=== PATIENT | female | born 1960 | race Caucasian/White ===

== ENCOUNTER 2024-04-03 15:00 | Outpatient (AMB) | payer BC, SELFPAY ==
--- NOTE | 2024-04-03 14:12 | MHC.PC.OV ---
Vital Signs 04/03/24 15:31 Height 5 ft 1 in Weight 244 lb BMI 46.1 BP 110/58 L Blood Pressure Location Rt brachial Position Sitting Pulse 86 Pulse Source Pulse Oximeter Pulse Oximetry (%) 95 Oxygen Delivery Method Room Air Intake Visit Reasons: [facility]/referrals/ medications Intake Note: New patient visit Automation And Controls Manager Required: No Allergies azithromycin Allergy (Unknown, Verified 04/03/24 14:18) Rash furosemide Allergy (Unknown, Verified 04/03/24 14:18) Unknown levofloxacin [From Levaquin] Allergy (Unknown, Verified 04/03/24 14:18) Rash levothyroxine Allergy (Unknown, Verified 04/03/24 14:18) Rash sulfadiazine Allergy (Unknown, Verified 04/03/24 14:18) Rash zinc sulfate Allergy (Unknown, Uncoded 04/03/24 14:18) rash Tobacco use date assessed: 04/03/24 Fall risk assessment: 1 Fall in past year Last assessed Fall Risk: 04/03/24 Dental Screening Dental Screen Date: 04/03/24 Did you have a dental visit in the last 12 months?: Yes Did you have a dental problem in the last 6 months where you did not have access to dental care?: No Was dental information given to patient?: Patient has dentist HPI HPI Comments History of Present Illness Details The patient is a 63 year old female with pmhx obesity, MEHDI, GERD, hyperglycemia, asthma, insomnia presenting for follow up CV: Dyspnea 2022. Had cardiology work up. Saw Dr Huitron. LE edema. ABIs ordered. Continue LE edema, discomfort Pulm: Asthma, MEHDI. On symbicort, ventolin. Dyspnea: Stable. Bad over summer, fall 2022. Had flu A, asthma exacerbation. Nuclear stress normal. Saw cardiology. Referred to pulm GI: CT imaging worrisome for cirrhosis, portal htn. . MSK: Right shoulder pain. s/p arthroscopy. Did PT stable BH: Insomnia is stable on zolpidem. s/p hysterectomy Did cologuard ROS see HPI PHYSICAL EXAM: GENERAL: Alert and oriented x 3. NAD EYES: EOMI. Anicteric. HENT: Moist mucous membranes. No scleral icterus. No cervical lymphadenopathy. LUNGS: Clear to auscultation bilaterally. CARDIOVASCULAR: Regular rate and rhythm. No murmur. No JVD. ABDOMEN: Soft, non-tender +bs EXTREMITIES: No edema. Non-tender. SKIN: No rashes or lesions. Warm. NEUROLOGIC: No focal neurological deficits. CN II-XII grossly intact PSYCHIATRIC: Cooperative. Appropriate mood and affect [facility] Medical History Cataract, right eye Surgical History History of partial colectomy History of hysterectomy H/O total knee replacement Family History Mother Lymphoma Sister Stroke Cancer Social History Housing: House Alcohol intake: current Patient Tobacco Use Status: Former Tobacco user Cigarette Packs Per Day: 11 Years Smoked: 33 e-Cigarette/Vaping Use: Never Used Second Hand Smoke Exposure: No service: No Current occupational status: employed and retired Current occupational exposures/hazards: No Cognitive needs: No Hearing needs: No Vision needs: Yes (glasses) Questionnaire Thrive Questionnaire Date Thrive assessed: 03/27/24 I am a: Patient What is your living situation today?: I have a steady place to live Within the past 12 months, did the food you bought not last and you didn't have the money to get more?: Never true Within the past 12 months, did you worry whether your food would run out before you got money to buy more?: Never true Do you have trouble paying for medicines?: No Do you have trouble getting transportation to medical appointments?: No Do you have trouble paying your heating and electricity bill?: No Do you have trouble taking care of your child, family member or friend?: No Do you have trouble with day-to-day activities such as bathing, preparing meals, shopping, managing finances, etc.?: No Are you currently unemployed and looking for a job?: No Are you interested in more education?: No Please select the resources that you would like help with: None Currently or been in a relationship where the following occur: No concerns reported THRIVE Score: 0 AUDIT C Alcohol Use Questionnaire (AUDIT-C) 1. How often do you have a drink containing alcohol?: 2-4 times a month 2. How many drinks containing alcohol do you have on a typical day when you are drinking?: 1 or 2 3. How often do you have six or more drinks on one occasion?: Never Total Score: 2 RAMBO-7 AMB Questionnaire RAMBO-7 Feeling nervous, anxious, or on edge: 0 = Not at all Not being able to stop or control worryin = Not at all Worrying too much about different things: 0 = Not at all Trouble relaxin = Not at all Being so restless that it is hard to sit still: 0 = Not at all Becoming easily annoyed or irritable: 0 = Not at all Feeling afraid as if something awful might happen: 0 = Not at all Total RAMBO-7 score (0-4 normal; 5-9 mild; 10-14 moderate; 15-21 severe): 0 Source: Developed by Drs. Hira Long, Mary Wolff, Fabian Robert and colleagues, with an educational brittney from [employer]. ACT Questionnaire In the past 4 weeks, how much of the time did your asthma keep you from getting as much done at work, school or at home?: A little of the time During the past 4 weeks, how often have you had shortness of breath?: 1-2 times a week During the past 4 weeks, how often did your asthma symptoms wake you up at night or earlier than usual in the morning?: Not at all During the past 4 weeks, how often have you had to use your rescue inhaler or nebulizer medication?: 1-2 times a week How would you rate your asthma control during the past 4 weeks?: Well controlled Score: 19 Physical exam (Primary Care) Vital Signs: Last Vital Signs Pulse 86 04/03/24 15:31 BP 110/58 L 04/03/24 15:31 Pulse Ox 95 04/03/24 15:31 Oxygen Delivery Method Room Air 04/03/24 15:31 BMI result Body Mass Index 46.1 Tobacco/Smoking Status: Tobacco use Status Tobacco use date assessed 04/03/24 04/03/24 14:19 Patient Tobacco Use Status Former Tobacco user 04/03/24 15:29 e-Cigarette/Vaping Use Never Used 04/03/24 15:29 Thrive Assessment: Date of Thrive Assessment Date Thrive assessed 03/27/24 04/03/24 14:15 Currently or been in a relationship where the following occur: No concerns reported Coding Level of Care Code New Pt Level 4 (06642) Complex EM visit Add On G2211 Diagnoses Coronary artery disease, unspecified vessel or lesion type, unspecified whether angina present, unspecified whether [place] or transplanted heart I25.10 Associated angina: unspecified whether angina present Coronary Disease-Associated Artery/Lesion type: unspecified vessel or lesion type [place] vs. transplanted heart: unspecified whether [place] or transplanted heart MEHDI (obstructive sleep apnea) G47.33 Peripheral vascular disease I73.9 Assessment & Plan Assessment & Plan (1) CAD (coronary artery disease): Code(s): I25.10 - Atherosclerotic heart disease of [place] coronary artery without angina pectoris Category: Medical Qualifiers: Associated angina: unspecified whether angina present Coronary Disease-Associated Artery/Lesion type: unspecified vessel or lesion type [place] vs. transplanted heart: unspecified whether [place] or transplanted heart Qualified Code(s): I25.10 - Atherosclerotic heart disease of [place] coronary artery without angina pectoris Plan: Continue cardiology follow up (2) MEHDI (obstructive sleep apnea): Code(s): G47.33 - Obstructive sleep apnea (adult) (pediatric) Category: Medical Plan: Referral to pulmonary. (3) Peripheral vascular disease: Code(s): I73.9 - Peripheral vascular disease, unspecified Category: Medical Plan: referral to vascular placed Orders: Referrals Podiatry Referral M79.673 - Pain in unspecified foot Dermatology Referral L98.9 - Disorder of the skin and subcutaneous tissue, unspecified Cardiology Referral I25.10 - Atherosclerotic heart disease of [place] coronary artery without angina pectoris Pulmonology Referral G47.33 - Obstructive sleep apnea (adult) (pediatric) Vascular Surgery Referral I73.9 - Peripheral vascular disease, unspecified Medications: New zolpidem 5 mg PO BEDTIME PRN 30 tabs 0RF sleep
--- OUTSIDE RECORDS SUMMARY | 2024-04-03 15:02 | XMS_ITS | Continuity of Care Document ---
Author Organization [facility] Address [address] [place] [address]- Care Team Providers Care Ebay Reseller Name Role Phone Tommie PALACIOS, Citlalli Lobo Primary Care Physician Encounter [facility] Date(s): 02/23/24 - 03/24/24 [facility] [address] [place] [id number]- Encounter Type: Triage Allergies, Adverse Reactions, Alerts Substance Criticality Severity Reaction Reaction Severity Status furosemide High criticality Moderate Ac tive azithromycin Rash Active levoFLOXacin Rash Active sulfADIAZINE Rash Active zinc sulfate ophthalmic Rash Active Levaquin rash Active Immunizations Given and Recorded Vaccine Date Status Refusal Reason SARS-CoV-2 (COVID-19) mRNA BNT-162b2 vac 04/28/21 Recorded tetanus/diphtheria/pertussis, acel(Tdap) 1 10/14/20 Given SARS-CoV-2 (COVID-19) Ad26 vaccine 06/25/20 Record ed influenza virus vaccine, inactivated 2 04/08/11 Gi loly influenza virus vaccine, inactivated 03/05/10 Give n pneumococcal 23-valent vaccine 03/06/10 Given 1Result Comment: [facility] [id number] 2Admin Note: [facility] info given to patient Problem List Condition Confirmation Course Effective Dates Status H ealth Status Informant Cirrhosis of liver Confirmed Active Controlled substance agreement signed 01/29/2021 Confirmed 01/29/21 Active Gastroesophageal reflux disease Confirmed Active Ventral incisional hernia Confirmed Active Hyperglycemia Confirmed Active Insomnia Confirmed Active Asthma, moderate persistent Confirmed Active Obesity Confirmed Active Obstructive sleep apnea syndrome, severe Confirmed Active High pulmonary arterial pressure Confirmed Active Restrictive lung disease secondary to obesity Confirmed Active Allergic rhinitis, seasonal Confirmed Active Severe obesity Confirmed Active Vertigo Confirmed Active Vitamin D deficiency Confirmed Active Social History Social History Type Response Smoking Status Former smoker, quit more than 30 days ago; Type: Cigarettes; Tobacco use times per day: 1pack/day; Started at age: 16; Stopped at age: 49; entered on: 12/09/21 Sex Sex Representation Female (finding) Patient Care team information Care Team Personnel Name: Gina Savage RN Position: [facility] AMB Nurse Member Role: Primary Care Nurse Name: Sage Crisostomo RN Position: [facility] RN Member Role: Primary Care Nurse Name: Nash Wick RN Position: [facility] RN Member Role: Primary Care Nurse Name: Citlalli Reilly MD Position: Reference Physician Member Role: PCP Address: [address] [place] [address] Telecom: Name: Cande Scott RN Position: [facility] ED RN W/OE and Tasks Member Role: Primary Care Nurse Name: Emily Virk RN Position: S RN Member Role: Primary Care Nurse Name: Christie Franco RN Position: [facility] SN RN Member Role: Primary Care Nurse Care Team Related Persons Name: NOEDASH Insurance Providers Guarantor name: PRASANNA NOE [employer] [facility] Information #: 1 Payer: HMO BLUE IN NETWORK Member Number: NA Policy Number: NA Group Number: NA
--- OUTSIDE RECORDS SUMMARY | 2024-04-03 15:02 | XMS_ITS | Continuity of Care Document ---
Author Organization [facility] Address [address] [place] [address]- Care Team Providers Care Bundle Helper Name Role Phone Tommie PALACIOS, Citlalli Lobo Primary Care Physician [phone] Encounter [facility] Date(s): 02/25/24 - 03/26/24 [facility] [address] [place] [id number] Attending Physician: AdmEsthela gonzalez Admitting Physician: AdmtrEsthela Referring Physician: Admtr [id number] Encounter Type: Triage Allergies, Adverse Reactions, Alerts [...] pneumococcal 23-valent vaccine 03/06/10 Given 1Result Comment: [facility] [id number] 2Admin Note: [facility] info given to patient Problem List Condition [...] Team Personnel Name: Gina Savage RN Position: [facility] AMB Nurse Member Role: Primary Care Nurse Name: Sage Crisostomo RN Position: [facility] RN Member Role: Primary Care Nurse Name: Nash Wick RN Position: [facility] RN Member Role: Primary Care Nurse Name: Citlalli Reilly MD Position: Reference Physician Member Role: PCP Address: [address] [place] [address] Telecom: Name: Cande Scott RN Position: [facility] ED RN W/OE and Tasks Member Role: Primary Care Nurse Name: Emily Virk RN Position: [facility] RN Member Role: Primary Care Nurse Name: Christie Franco RN Position: [facility] SN RN Member Role: Primary Care Nurse Care Team Related Persons Name: NOEDASH Insurance Providers Guarantor name: PRASANNA NOE [employer] [facility] Information #: 1 Payer: O BLUE IN NETWORK Member Number: NA Policy Number: NA Group Number: NA
--- OUTSIDE RECORDS SUMMARY | 2024-04-03 15:02 | XMS_ITS | Continuity of Care Document ---
Author Organization [facility] Address [address] [place] [address]- Care Team Providers Care Pharmacy Picking Technician Name Role Phone Tommie PALACIOS, Citlalli Lobo Primary Care Physician Encounter [facility] Date(s): 02/22/24 - 03/23/24 [facility] [address] [place] [phone]- Encounter Type: Triage Allergies, Adverse Reactions, Alerts Substance Criticality Severity Reaction Reaction Severity Status furosemide High criticality Moderate Ac tive azithromycin Rash Active zinc sulfate ophthalmic Rash Active levoFLOXacin Rash Active sulfADIAZINE Rash Active Levaquin rash Active Immunizations Given and Recorded Vaccine Date Status Refusal Reason SARS-CoV-2 (COVID-19) mRNA BNT-162b2 vac 04/28/21 Recorded tetanus/diphtheria/pertussis, acel(Tdap) 1 10/14/20 Given SARS-CoV-2 (COVID-19) Ad26 vaccine 06/25/20 Record ed influenza virus vaccine, inactivated 2 04/08/11 Gi loly influenza virus vaccine, inactivated 03/05/10 Give n pneumococcal 23-valent vaccine 03/06/10 Given 1Result Comment: [facility] [id number] 2Admin Note: [facility] info given to patient Problem List Condition [...] Team Personnel Name: Gina Savage RN Position: [facility] AMB Nurse Member Role: Primary Care Nurse Name: Sage Crisostomo RN Position: [facility] RN Member Role: Primary Care Nurse Name: Nash Wick RN Position: [facility] RN Member Role: Primary Care Nurse Name: Citlalli Reilly MD Position: Reference Physician Member Role: PCP Address: [address] [place] [id number] Telecom: Name: Cande Scott RN Position: [facility] ED RN W/OE and Tasks Member Role: Primary Care Nurse Name: Emily Virk RN Position: [facility] RN Member Role: Primary Care Nurse Name: Christie Franco RN Position: [facility] RN Member Role: Primary Care Nurse Care Team Related Persons Name: NOEDASH RAMIREZ Insurance Providers Guarantor name: PRASANNA NOE [facility] Information #: 1 Payer: HMO BLUE IN NETWORK Member Number: NA Policy Number: NA Group Number: NA
--- OUTSIDE RECORDS SUMMARY | 2024-04-03 15:02 | XMS_ITS | Data Portability ---
Author Organization [place] - [facility],, RADHA GONZALEZ MD Address [address] [address] Care Team Providers Care Coffee Urn Attendant Name Role Phone AlysonCORAL PAULA Primary Care Provider Assessment No assessment recorded. Plan of Treatment Reminders Order Date Submit Date Provider Last Modified By Organization Details Last Modified Time Details Appointments ANNUAL EXAM 2024 09:00A M Radha Gonzalez MD Not available Not available Not available Lab pap test, thinprep, cervical 2023 024 [email or web address] [facility], [address] [place] [address], [id number], 05/27/2023 07:34:21 fecal occult blood, stool 2023 024 [email or web address] 1 In-Office Order, Internal Use Only DO Not Attach Compendium DO Not Attach Compendium, Do Not Delete/merge, [id number] 05/20/2023 09:35:44 Referral None recorded. Procedures None recorded. Surgeries None recorded. Imaging bone density 2023 024 [facility]), [address] [place], [address], 05/20/2023 12:06:59 MAMMO, screening , digital, bilateral - Breast Aspiratio n and/or Biopsy if needed [address] [facility] ([facility]), [address] [place], [address], 05/20/2023 12:06:59 Medication Orders None recorded. Patient TargetsNo targets recorded. Patient Instructions Encounter Date Encounter Id Patient Instructions Last Modified By Organization Details Last Modified Time 05/20/2023 [id number] learning about healthy weight luciana Not available 05/20/2023 09:35:44 She is here as a new patient for annual exam. She had a hysterectomy at age 28, including removing the ovaries, she is not certain why she had it done. She did not have an abnormal pap, or endometriosis. It was pain and problems. After that she took ERT for a few years, but not since age 39 or earlier. She is retired, doing well, would like ot lose weight but her insurance denied the weight loss injections that her doctor prescribed. BMI 46.4. She has a hernia in her incision, it causes pain at times, she went to see a general surgeon he told me I need it done but I'm too fat for him to operate on. She appears to be doing well. She has never had a bone density, one is ordered. she is given the name nad contact information for Dr. Bassam Howe at the [facility]. Monthly self breast exam was taught, and stressed, and is advised to call if she discovers any new mass in the breast. Libido issues discussed. She does have atrophy, but has never tried a lubricant. Advised to try Astroglide, if not enough improvement then advised to call for telehealth to discuss possible vaginal estradiol. luciana Not available 05/20/2023 10:03:21 Reason for Referral None Reported. Results Created Date Observation Date Name Description Value Unit Range Abnormal Flag Note LastModifiedBy Organization Detail LastModifiedTime 05/20/19 24 05/20/2023 [facility] OGY results Patiarmando nt Name: ZORA OBRIEN nt : 1959 (Age: 63) Lab Acces faraz #: [id number] Colle ction Date: Acces faraz Date: Sign Out Date: Tissu e Sourc e: 1: THINP REP DIAMOND PICKER PAP TEST, VAGIN AL: Final Diagn osis: NEGAT ISABELLA FOR INTRA EPITH ELIAL LESTONE N OR PJ CHATTERJEE . Satis facto ry for evalu ation . Clini jose Histo ry: Date of Last Menst rual Perio d: not avail able Menst rual Histo ry: Hyste recto my Post- menop ausal Contr acept isabella Histo ry: not avail able Ancil dane Deepthi melvin: HPV (ASCU S) Case image d by the ThinP rep Imagi ng Syste m with mira weaverr marko polanco or josé miguel mak. Perfo rmed at [facility] ate Refer ence [facility], [address] [place] Clini jose Histo ry (othe r): Z01.4 19, ROUTI NE SCREE N Phone #: [phone], On-Ca ll Patho logis t: [id number] Not Available [facility] [address], [place], [address], 05/26/2023 10:45:42 05/20/19 24 05/20/2023 fecal occul t blood , stool Occult Blood negati ve Not Available In-Office Order Internal Use Only DO Not Attach Compendium DO Not Attach Compendium, Do Not Delete/merge, [id number] 05/20/2023 09:16:31 Result Notes None recorded. Problems Name Problem SNOMED Code Status Onset Date Resolution Date Notes Provider Name and Address Organization Details Recorded Time Incisional hernia 349999694 Active 2023 Radha Gonzalez MD [address], [place], [address], [place] - [facility], 4 10:00:25 Postsurgic al menopause 929856485 Active 2023 premature age 28 Radha Gonzalez MD [address], [place], [address], [place] [facility], 4 10:00:48 Reduced libido 2964765 Active 2023 Radha Gonzalez MD [address], [place], [address], [place] [facility], 4 10:01:02 Morbid obesity 792789422 Active 2023 Radha Gonzalez MD [address] [facility], [address], [place], [address] , [place] - [facility], 10:01:10 Problem Notes None recorded. Procedures Surgical History Date Name Laterality Status Provider Name and Address Organization Details Recorded Time 09/18/19 23 Most Recent Mammogram completed Angely Mecstefaniewor [place] - [facility], 05/20/2023 09:14:55 06/04/19 23 procedure on shoulder completed Angely Meczywor [place] [facility], 05/20/2023 09:12:14 05/21/19 22 procedure on knee completed Angely Meczywor [place] [facility], 05/20/2023 09:12:31 06/04/19 17 Appendectomy completed Angely Meczywor [place] [facility], 05/20/2023 09:12:50 05/22/19 11 cholecystectomy completed Angely Meczywor [place] - [facility], 05/20/2023 09:13:07 05/20/18 80 hysterectomy completed Angely Meczywor [place] [facility], 05/20/2023 09:14:07 Imaging Results None recorded. Procedure Notes None recorded. Medical Equipment None Reported. Allergies Allergen ID Allergen Name Allergen Category Reaction Reaction Severity Criticality Documentation Date Start Date Code Code System Note Provider Name and Address Organization Details Recorded Time 79480 Substance with sulfonami de structure and antibacte rial mechanism of action (substanc e) medicatio n rash Not available Not available 05/20/2023 55265 8003 SNOMED Angely Mecznathaly tay [place] - [facility], 09:07:30 Medications Name Sig Start Date Stop Date Status Note LastModified by Organization Details LastModified Time prednisone 10 mg tablet 3 TABS BY MOUTH DAILY X 3 DAYS, 2 TABS BY MOUTH DAILY X 3 DAYS, 1 TABLET BY MOUTH DAILY X 3 DAYS 05/20 completed Not Available Not Available Not Available ondansetron HCl 4 mg tablet TAKE 1 TABLET BY MOUTH EVERY 8 HOURS FOR 30 DAYS NEEDED NAUSEA & VOMITING 05/20 completed Not Available Not Available Not Available pimecrolimu s 1 % topical cream Apply small amount to affected areas for 2-4 weeks active Not Available Not Available No t Available spironolact one 25 mg tablet TAKE 1/2 OF A TABLET BY MOUTH DAILY FOR 30 DAYS active Not Available Not Available No t Available pantoprazol e 40 mg tablet,iker yed release TAKE 1 TABLET BY MOUTH EVERY DAY 05/20 completed Not Available Not Available Not Available zolpidem 5 mg tablet TAKE 1 TABLET BY MOUTH DAILY AT BEDTIME 05/20 completed Not Available Not Available Not Available methylpredn isolone 4 mg tablets in a dose pack TAKE DIRECTED ON PACKET 05/20 completed Not Available Not Available Not Available albuterol sulfate HFA 90 mcg/actuati on aerosol inhaler INHALE 2 PUFFS 4 TIMES A DAY NEEDED FOR WHEEZING OR SHORTNESS OF BREATH active Not Available Not Available No t Available naproxen 500 mg tablet TAKE 1 TABLET BY MOUTH TWICE A DAY FOR 5 DAYS BEGINNING THE AFTERNOON /EVENING YOU GET HOME FROM SURGERY. TAKE WITH FOOD, STOP IF STOMACH DISCOMFOR T. 05/20 completed Not Available Not Available Not Available oxycodone 5 mg tablet TAKE 1 TABLET BY MOUTH EVERY 4 HOURS NEEDED FOR PAIN DIRECTED (DO NOT DRIVE WHILE ON THIS MEDICATIO N) 05/20 completed Not Available Not Available Not Available Symbicort 160 mcg-4.5 mcg/actuati on HFA aerosol inhaler INHALE 2 PUFFS TWICE A DAY active Not Available Not Available No t Available Vitals Date Recorded Heart rate Body temperature Body weight Body mass index (BMI) Body height Systolic blood pressure Diastolic blood pressure Provider Name and Address Organization Details Last Updated DateTime 4 93 /min 98 [degF] 209071. 55 g 46.4 kg/m2 152.4 cm 131 mm[Hg] 50 mm[Hg] Angely Zamora in [facility], 4 09:05:32 Social History Question Answer Notes LastModified by Organizat ion Details LastModified Time Tobacco Smoking Status Former Smoker [place] Forrest in [facility], 05/20/2023 09:10:14 What Is Your Level Of Alcohol Consumption? Occasional Information not available 05/20/2023 How Many Years Have You Consumed Alcohol? 40 Information not available 05/20/2023 What Is Your Level Of Caffeine Consumption? Moderate Information not available 05/20/2023 In The 14 Days Before Symptom Onset, Have You Had Close Contact With A Laboratory-confir med COVID-19 While That Case Was Ill? No Information not available 05/20/2023 In The 14 Days Before Symptom Onset, Have You Had Close Contact With A Person Who Is Under Investigation For COVID-19 While That Person Was Ill? No Information not available 05/20/2023 Have You Been To An Area Known To Be High Risk For COVID-19? No Information not available 05/20/2023 Are You Currently Employed? No Retired Information not available 05/20/2023 What Is The Highest Grade Or Level Of School You Have Completed Or The Highest Degree You Have Received? [id number] Information not available 05/20/2023 Are There Any Guns Present In Your Home? No Information not available 05/20/2023 To Which Gender Do You Self-identify? Female Information not available 05/20/2023 What Was The Date Of Your Most Recent Tobacco Screening? 05/20/2023 Information not available 05/20/2023 What Is Your Relationship Status? Information not available 05/20/2023 Are You Sexually Active? Yes Information not available 05/20/2023 At What Age Did You Start Smoking Tobacco? 16 Information not available 05/20/2023 Do You Feel Stressed (tense, Restless, Nervous, Or Anxious, Or Unable To Sleep At Night)? [id number] Information not available 05/20/2023 Do You Use Any Illicit Or Recreational Drugs? No Information not available 05/20/2023 How Many Years Have You Smoked Tobacco? 20 Information not available 05/20/2023 Do You Or Have You Ever Used Any Other Forms Of Tobacco Or Nicotine? No Information not available 05/20/2023 How Many Days In The Past Year Have You Consumed 4 Or More Drinks? -1 Information no t available 05/20/2023 Sex: Female Functional Status Question Answer Note LastModified by Organizat ion Details LastModified Time What is your exercise level? Occasional Information not available 05/20/2023 Mental Status None recorded. Family History Relationship Description Onset Age of this Age Resolved Age Notes LastModified by Organization Details LastModified Time Father Heart disease [email or web address] Not available 2023 09:08:55 Medical History Condition Response Anesthesia complications N High Blood Pressure N Candidate for MyRisk panel N Autoimmune Condition N Thyroid Problems N Kidney or Bladder Problems N Depression N GI Problems N Lung Disease N Defects or Inherited Disease N Anemia N History of Ovarian Cancer N History of Breast Cancer N RYAN exposure N BRCA testing in past N Osteopenia N Psychiatric Illness N Diabetes N Anxiety Disorder N Arthritis N Headaches or Migraines N Infertility N Asthma Y History of Cancer N Endometriosis N Hepatitis N Heart Disease N Hypertension N Osteoporosis N Gynecological History Statement/Question Response If Post Menopausal, Age at Menopause 28 Age at Menarche 12 Most Recent Mammogram 09/17/2022 Age at First Child 17 Obstetrics History GPAL:G 4 P 4 0 0 4 Type Value Full Term 4 Living 4 Total 4 Immunizations Vaccine Type Date Status Note Provider Nam e and Address Organization Details Recorded Time COVID-19, mRNA, LNP-S, PF, 30 mcg/0.3 mL dose 04/28/2021 completed [place] in [facility], 05/20/2023 09:06:38 COVID-19 vaccine, vector-nr, rS-Ad26, PF, 0.5 mL 06/25/2020 completed [place] in [facility], 05/20/2023 09:06:39 Tdap 10/14/2020 completed [place] in [facility], 05/20/2023 09:06:39 Past Encounters Encounter ID Performer Location Encounter Start Date Encounter Closed Date Diagnosis/Indication Diagnosis SNOMED-CT Code Diagnosis ICD10 Code [id number] MD RADHA Carmona MD [address] [place] [address] 05/20/2023 08:58:41 05/20/2023 12:06:59 Specialized medical examination 47546152 Z01.419 Screening for malignant neoplasm of rectum 398091766 Z12.12 Screening mammography 24 084060 Z12.31 Menopausal syndrome 1237 76812 N95.8 Incisional hernia 843631 000 K43.2 Postsurgic al menopause 327470731 E89.41 Health Concerns Section Related Observation LastModified by Organization Detai ls LastModified Time None Recorded Concern Status LastModified by Organization Details LastModified Time None Recorded Advance Directives Directive None Recorded Payers Encounter Date Sequence Insurance Name Policy Number Policy Bowles Covered Member ID Bowles Member ID Guarantor Name 05/20/2023 1 [facility] [id number] Adrienne Amaya [id number] Aprbina Amaya Notes Date Note Type Note Provider Name and Address Organization Details Recorded Time 05/20/2023 text/html She is here as a new patient for annual exam. She had a hysterectomy at age 28, including removing the ovaries, she is not certain why she had it done. She did not have an abnormal pap, or endometriosis. It was pain and problems. After that she took ERT for a few years, but not since age 39 or earlier. She is retired, doing well, would like ot lose weight but her insurance denied the weight loss injections that her doctor prescribed. She has a hernia in her incision, it causes pain at times, she went to see a general surgeon he told me I need it done but I'm too fat for him to operate on. Radha Gonzalez MD [address], [place], [address], [place] - [facility], 05/20/2023 10:03:47 OBGyn Episode No OBEpisode recorded.
--- OUTSIDE RECORDS SUMMARY | 2024-04-03 15:02 | XMS_ITS | Continuity of Care Document ---
Author Organization [facility] Address [address] [place] [address]- Care Team Providers Care Environmental Field Professional Name Role Phone Tommie PALACIOS, Citlalli Lobo Primary Care Physician [phone] Encounter [facility] Date(s): 02/27/24 - 03/28/24 [facility] [address] [place] [address]- Encounter Type: Triage Allergies, Adverse Reactions, Alerts Substance Criticality Severity Reaction Reaction Severity Status furosemide High criticality Moderate Ac tive azithromycin Rash Active sulfADIAZINE Rash Active zinc sulfate ophthalmic Rash Active Levaquin rash Active levoFLOXacin Rash Active Immunizations Given and Recorded Vaccine Date Status Refusal Reason SARS-CoV-2 (COVID-19) mRNA BNT-162b2 vac 04/28/21 Recorded tetanus/diphtheria/pertussis, acel(Tdap) 1 10/14/20 Given SARS-CoV-2 (COVID-19) Ad26 vaccine 06/25/20 Record ed influenza virus vaccine, inactivated 2 04/08/11 Gi loly influenza virus vaccine, inactivated 03/05/10 Give n pneumococcal 23-valent vaccine 03/06/10 Given 1Result Comment: [facility] [id number] 2Admin Note: [facility] info given to patient Problem List Condition [...] Team Personnel Name: Gina Savage RN Position: [facility] AMB Nurse Member Role: Primary Care Nurse Name: Sage Crisostomo RN Position: [facility] RN Member Role: Primary Care Nurse Name: Nash Wick RN Position: [facility] RN Member Role: Primary Care Nurse Name: Citlalli Reilly MD Position: Reference Physician Member Role: PCP Address: [address] [place] [address] Telecom: Name: Cande Scott RN Position: [facility] ED RN W/OE and Tasks Member Role: Primary Care Nurse Name: Emily Virk RN Position: S RN Member Role: Primary Care Nurse Name: Christie Franco RN Position: [facility] SN RN Member Role: Primary Care Nurse Care Team Related Persons Name: NOEDASH Insurance Providers Guarantor name: PRASANNA NOE [employer] [facility] Information #: 1 Payer: HMO BLUE IN NETWORK Member Number: NA Policy Number: NA Group Number: NA
--- OUTSIDE RECORDS SUMMARY | 2024-04-03 15:02 | XMS_ITS | Continuity of Care Document ---
Author Organization [facility] Address [facility] [place] [address]- Care Team Providers Care Electronic Security Technician Name Role Phone Tommie PALACIOS, Citlalli Lobo Primary Care Physician Encounter [facility] Date(s): 02/07/24 - 03/08/24 [facility] [address] [place] [address]- Encounter Type: Triage Allergies, Adverse Reactions, Alerts [...] pneumococcal 23-valent vaccine 03/06/10 Given 1Result Comment: [facility][NOTE 3] [id number] 2Admin Note: [facility] info given to patient Problem List [...] Team Personnel Name: Gina Savage RN Position: [facility] AMB Nurse Member Role: Primary Care Nurse Name: Sage Crisostomo RN Position: [facility] RN Member Role: Primary Care Nurse Name: Nash Wick RN Position: [facility] RN Member Role: Primary Care Nurse Name: Citlalli Reilly MD Position: Reference Physician Member Role: PCP Address: [address] [place] [address] Telecom: Name: Cande Scott RN Position: [facility] ED RN W/OE and Tasks Member Role: Primary Care Nurse Name: Emily Virk RN Position: [facility] RN Member Role: Primary Care Nurse Name: Christie Franco RN Position: [facility] SN RN Member Role: Primary Care Nurse Care Team Related Persons Name: NOEDASH Insurance Providers Guarantor name: PRASANNA NOE [employer] [facility] Information #: 1 Payer: HMO BLUE IN NETWORK Member Number: NA Policy Number: NA Group Number: NA
--- OUTSIDE RECORDS SUMMARY | 2024-04-03 15:02 | XMS_ITS | Continuity of Care Document ---
Author Organization [facility] Address [address] [place] [address]- Care Team Providers Care Email Marketing Intern Name Role Phone Tommie PALACIOS, Citlalli Lobo Primary Care Physician [phone] Encounter [facility] Date(s): 02/08/24 - 03/09/24 [facility] [address] [place] [address]- Encounter Type: Triage Allergies, Adverse Reactions, Alerts Substance Criticality Severity Reaction Reaction Severity Status furosemide High criticality Moderate Ac tive azithromycin Rash Active sulfADIAZINE Rash Active levoFLOXacin Rash Active zinc sulfate ophthalmic Rash Active Levaquin rash Active Immunizations Given and Recorded Vaccine Date Status Refusal Reason SARS-CoV-2 (COVID-19) mRNA BNT-162b2 vac 04/28/21 Recorded tetanus/diphtheria/pertussis, acel(Tdap) 1 10/14/20 Given SARS-CoV-2 (COVID-19) Ad26 vaccine 06/25/20 Record ed influenza virus vaccine, inactivated 2 04/08/11 Gi loly influenza virus vaccine, inactivated 03/05/10 Give n pneumococcal 23-valent vaccine 03/06/10 Given 1Result Comment: [facility] [id number] 2Admin Note: [facility] info given to patient Problem List Condition [...] Team Personnel Name: Gina Savage RN Position: [facility] AMB Nurse Member Role: Primary Care Nurse Name: Sage Crisostomo RN Position: [facility] RN Member Role: Primary Care Nurse Name: Nash Wick RN Position: [facility] RN Member Role: Primary Care Nurse Name: Citlalli Reilly MD Position: Reference Physician Member Role: PCP Address: [address] [place] [address] Telecom: Name: Cande Scott RN Position: [facility] ED RN W/OE and Tasks Member Role: Primary Care Nurse Name: Emily Virk RN Position: S RN Member Role: Primary Care Nurse Name: Christie Franco RN Position: [facility] SN RN Member Role: Primary Care Nurse Care Team Related Persons Name: NOEDASH Insurance Providers Guarantor name: PRASANNA NOE [employer] [facility] Information #: 1 Payer: HMO BLUE IN NETWORK Member Number: NA Policy Number: NA Group Number: NA
--- OUTSIDE RECORDS SUMMARY | 2024-04-03 15:03 | XMS_ITS | Continuity of Care Document ---
Author Organization [facility] Address [address] [place] [address]- Care Team Providers Care Wholesale Agronomist Name Role Phone Tommie PALACISO, Citlalli Lobo Primary Care Physician Encounter [facility] Date(s): 02/08/24 - 03/09/24 [facility] [address] [place] [address]- Encounter Type: Triage Allergies, Adverse Reactions, Alerts [...] 23-valent vaccine 03/06/10 Given 1Result Comment: [facility] [id number] 2Admin Note: [facility] info given to patient Problem List Condition [...] Team Personnel Name: Gina Savage RN Position: [facility] AMB Nurse Member Role: Primary Care Nurse Name: Sage Crisostomo RN Position: [facility] RN Member Role: Primary Care Nurse Name: Nash Wick RN Position: [facility] RN Member Role: Primary Care Nurse Name: Citlalli Reilly MD Position: Reference Physician Member Role: PCP Address: [address] [place] [address] Telecom: Name: Cande Scott RN Position: [facility] ED RN W/OE and Tasks Member Role: Primary Care Nurse Name: Emily Virk RN Position: S RN Member Role: Primary Care Nurse Name: Christie Franco RN Position: [facility] SN RN Member Role: Primary Care Nurse Care Team Related Persons Name: NOEDASH Insurance Providers Guarantor name: PRASANNA NOE [employer] [facility] Information #: 1 Payer: HMO BLUE IN NETWORK Member Number: NA Policy Number: NA Group Number: NA
--- OUTSIDE RECORDS SUMMARY | 2024-04-03 15:03 | XMS_ITS | Continuity of Care Document ---
Author Organization [facility] Card[facility] Ruy anai Address [address] [place] [address]- Care Team Providers Care Car Clerk Pullman Name Role Phone Tommie PALACIOS, Citlalli Lobo Primary Care Physician [phone] [place] [facility] [place]): 02/03/24 - 03/04/24 [facility] Cardiac Surgery [address] [place] [address] Drive [address] [place] [address]- Encounter Type: Triage Allergies, Adverse Reactions, Alerts [...] [facility][NOTE 3] [id number] 2Admin Note: [facility] info given to patient Problem List Condition [...] Team Personnel Name: Gina Savage RN Position: [facility] AMB Nurse Member Role: Primary Care Nurse Name: Sage Crisostomo RN Position: [facility] RN Member Role: Primary Care Nurse Name: Nash Wick RN Position: [facility] RN Member Role: Primary Care Nurse Name: Citlalli Reilly MD Position: Reference Physician Member Role: PCP Address: [address] [place] [id number] Telecom: Name: Caned Scott RN Position: [facility] ED RN W/OE and Tasks Member Role: Primary Care Nurse Name: Emily Virk RN Position: [facility] RN Member Role: Primary Care Nurse Name: Christie Franco RN Position: [facility] RN Member Role: Primary Care Nurse Care Team Related Persons Name: NOEDASH RAMIREZ Insurance Providers Guarantor name: PRASANNA NOE [facility] Information #: 1 Payer: HMO BLUE IN NETWORK Member Number: NA Policy Number: NA Group Number: NA
[2024-04-03 15:31] VITALS: BP 110/58; PULSE 86; O2SAT 95; BMI 46.1
== END 2024-04-03 16:07 | disposition home or self-care (01) ==
PROVIDERS: PCP Internal Medicine; Visit Provider Internal Medicine
DX: I25.10 Atherosclerotic heart disease of native coronary artery without angina pectoris (principal); G47.33 Obstructive sleep apnea (adult) (pediatric); I73.9 Peripheral vascular disease, unspecified

== ENCOUNTER → 2024-04-03 15:00 | Outpatient (BNVA) | payer BC, SELFPAY | PROVIDERS: PCP Internal Medicine; Visit Provider Internal Medicine ==

== ENCOUNTER → 2024-05-26 09:17 | Outpatient (BNVA) | payer BC, SELFPAY | PROVIDERS: PCP Internal Medicine; Visit Provider Internal Medicine | DX: K43.9 Ventral hernia without obstruction or gangrene (principal); E66.9 Obesity, unspecified; G47.33 Obstructive sleep apnea (adult) (pediatric); K21.9 Gastro-esophageal reflux disease without esophagitis; I25.10 Atherosclerotic heart disease of native coronary artery without angina pectoris; Z68.42 Body mass index [BMI] 45.0-49.9, adult | CPT/HCPCS: 96127 ==

== ENCOUNTER 2024-06-29 13:37 | Outpatient (REF) | payer BC, SELFPAY ==
--- NOTE | ~2024-06-29 | CT_ITS ---
CLINICAL HISTORY: K43.9 - Ventral hernia without obstruction or gangrene CT abdomen and pelvis without contrast Comparison: None Findings: No consolidation or pleural effusion. Gallbladder is surgically absent. No significant biliary ductal dilatation. Unenhanced liver is nodular suggestive of cirrhosis. The spleen is enlarged. Findings are suggestive of paraesophageal varices and upper abdominal venous collaterals likely with recanalized umbilical vein consistent with portal hypertension. No ascites. Unenhanced pancreas, adrenal glands and kidneys within normal limits. No renal or ureteral stones and no hydronephrosis or hydroureter. No bowel obstruction, pneumoperitoneum, or pneumatosis. Appendix is not visualized. Small right paraumbilical fat containing hernia with no hilum involvement with mild stranding in the hernia fat Stranding/edema in the bowel mesentery. Uterus is absent. Urinary bladder nearly empty. Atherosclerotic vascular disease no aneurysm of the abdominal aorta. No acute fracture. Accentuated lumbar lordosis. Degenerative disc disease at L1-2. Mild grade 1 anterolisthesis at L4-5. Facet arthropathy. Mild stranding/edema in soft tissues of lower back at the midline. IMPRESSION: 1. Small fat containing right paraumbilical hernia with no bowel involvement. There is stranding/edema in the hernia fat which may represent strangulation. 2. Findings suggestive of cirrhosis with splenomegaly, distal esophageal varices and upper abdominal venous collaterals consistent with portal hypertension. 3. Nonspecific edema in the bowel mesentery. This document has been electronically signed by: Trinidad Esquivel MD on 06/29/2024 17:25:14
--- OUTSIDE RECORDS SUMMARY | 2024-06-29 17:11 | XMS_ITS | Continuity of Care Document ---
Author Organization [facility] Address [address] [place] [address]- Care Team Providers Care Hotel Office Manager Name Role Phone Tommie PALACIOS, Citlalli Lobo Primary Care Physician Encounter [facility] Date(s): 05/17/24 - 06/16/24 [facility] [address] [place] [id number] Encounter Type: Triage Allergies, Adverse Reactions, Alerts [...] 23-valent vaccine 03/06/10 Given 1Result Comment: [facility] [id number] 2Admin Note: [facility] info given to patient Problem List Condition [...] Team Personnel Name: Gina Savage RN Position: [facility] AMB Nurse Member Role: Primary Care Nurse Name: Sage Crisostomo RN Position: [facility] RN Member Role: Primary Care Nurse Name: Nash Wick RN Position: [facility] RN Member Role: Primary Care Nurse Name: Citlalli Reilly MD Position: Reference Physician Member Role: PCP Address: [address] [place] [id number] Telecom: Name: Cande Scott RN Position: [facility] ED RN W/OE and Tasks Member Role: Primary Care Nurse Name: Emily Virk RN Position: [facility] RN Member Role: Primary Care Nurse Name: Christie Franco RN Position: [facility] RN Member Role: Primary Care Nurse Care Team Related Persons Name: DASH LIU Insurance Providers Guarantor name: [employer] Plan Information #: 1 Payer: HMO BLUE IN NETWORK Member Number: NA Policy Number: NA Group Number: NA
--- OUTSIDE RECORDS SUMMARY | 2024-06-29 17:11 | XMS_ITS | Clinical Summary ---
Author Organization [facility] Facility Address [address] [address] Care Team Providers Care Operating Room Manager Name Role Phone Citlalli Reilly MD Primary Care Provider [phone] Allergies Active Allergy Reactions Criticality Noted Date Comments Azithromycin Other (see comments) 02/02/2023 Furosemide 02/02/2023 Levofloxacin Rash Low 02/02/2023 Sulfacetamide 12/22/2022 Sulfadiazine Rash Low 02/02/2023 Zinc Rash Low 02/02/2023 Medications albuterol (PROVENTIL,VENT LUIS) 2 MG/5ML syrup Take 2 mg by mouth in the morning and 2 mg in the evening and 2 mg before bedtime. Active albuterol HFA (PROVENTIL HFA;VENTOLIN HFA) 108 (90 Base) MCG/ACT inhaler INHALE 2 PUFFS 4 TIMES A DAY NEEDED FOR WHEEZING OR SHORTNESS OF BREATH 3 Active Symbicort 160-4.5 MCG/ACT inhaler 3 Active Cholecalciferol (Vitamin D-3) 25 MCG (1000 UT) capsuleIndicati ons:Vitamin D deficiency, not otherwise specified Take 1,000 Units by mouth in the morning. 90 capsule 3 4 07/13/19 25 Active Active Problems Problem Noted Date Diagnosed Date Hernia of anterior abdominal wall 02/02/2023 02/02/2023 Hyperglycemia 02/02/2023 02/02/2023 Seasonal allergy 02/02/2023 02/02/2023 Asthma 12/22/2022 Gastroesophageal reflux disease 12/22/2022 Type 2 diabetes mellitus with hyperglycemia 08/2022 Insomnia 12/22/2022 Obesity 12/22/2022 Obstructive sleep apnea 12/22/2022 Restrictive lung disease 12/22/2022 Other seasonal allergic rhinitis 12/22/2022 Vertigo 12/22/2022 Vitamin D deficiency 12/22/2022 Drug therapy finding 01/29/2021 02/02/2023 Immunizations Name Administration Dates Next Due Influenza, Unspecified 04/08/2011,03/05/2010 Nasir SARS-COV-2 06/25/2020 Pfizer SARS-COV-2 04/28/2021 Pneumococcal Polysaccharide 03/06/2010 Tdap 10/14/2020 Social History Tobacco Use Types Packs/Day Years Used Date Smoking Tobacco: Never Smokeless Tobacco: Never Tobacco Cessation:Counseling Given: No Alcohol Use Standard Drinks/Week Comments Yes 0 (1 standard drink = 0.6 oz pur e alcohol) Comments Unknown Sex and Gender Information Value Date Recorded Sex Assigned at Not on file Legal Sex Female 8:24 AM EDT Gender Identity Not on file Sexual Orientation Not on file Last Filed Vital Signs Vital Sign Reading Time Taken Comments Blood Pressure 126/60 07/12/2023 8:28 AM EDT Pulse 88 07/12/2023 8:28 AM EDT Temperature - - Respiratory Rate - - Oxygen Saturation 99% 07/12/2023 8:28 AM EDT Inhaled Oxygen Concentration - - Weight 108 kg (238 lb 9.6 oz) 07/12/2023 8:28 AM EDT Height - - Body Mass Index - - Plan of Treatment Health Maintenance Due Date Last Done Comments Breast Cancer Screening 1960 Colorectal Cancer Screening: Annual FOBT 01/19/2008 Colorectal Cancer Screening: Colonoscopy 01/19/2008 Colorectal Cancer Screening: Sigmoidoscopy 01/19/2008 Pneumococcal Vaccine: 65+ Years (2 of 2 - PCV) 03/06/2011 03/06/2010 Pneumococcal Vaccine: Pediatrics (0 to 5 Years) and At-Risk Patients (6 to 64 Years) (2 of 2 - PCV) 03/06/2011 03/06/2010 Diabetes: Hemoglobin A1C 12/22/2022 Diabetes: Ophthalmology Exam 12/22/2022 Diabetes: Pedal Pulse Checked 12/22/2022 Diabetes: Sensory Foot Exam 12/22/2022 Diabetes: Visual Foot Exam 12/22/2022 Influenza Vaccine (#1) 2023 1, 03/05/2010 Hepatitis B Vaccine Aged Out No longe r eligible based on patient's age to complete this topic Insurance * Guarantor: Adrienne Amaya Account Type Relation to Patient Date of Phone Billing Address Personal/Family Self 1960 [address] [place] [address] [facility] * Guarantor: Adrienne Amaya Account Type Relation to Patient Date of Phone Billing Address Personal/Family Self 1960 [address] [place], [place] [facility] Care Teams Operating Room Manager Relationship Specialty Start Date End Date Citlalli Reilly MD [address] [place] [id number] PCP - General Internal Medicine 12/22/22
--- OUTSIDE RECORDS SUMMARY | 2024-06-29 17:11 | XMS_ITS | Continuity of Care Document ---
Author Organization [facility] Pulmonary edicine Address [address] [place] [address] [address] [place] [address]- Care Team Providers Care Leasing Specialist Name Role Phone Tommie PALACIOS, Citlalli Lobo Primary Care Physician [phone] [place] [facility] [place] 05/29/24 - 06/28/24 [facility] Pul[facility] Medicine [address] [place] [address] [place] [id number] Encounter Type: Triage Allergies, Adverse Reactions, Alerts [...] pneumococcal 23-valent vaccine 03/06/10 Given 1Result Comment: [facility] [id number] 2Admin Note: CDC info given to patient Problem List Condition [...] Team Personnel Name: Gina Savage RN Position: [facility] AMB Nurse Member Role: Primary Care Nurse Name: Sage Crisostomo RN Position: [facility] RN Member Role: Primary Care Nurse Name: Nash Wick RN Position: [facility] RN Member Role: Primary Care Nurse Name: Citlalli Reilly MD Position: Reference Physician Member Role: PCP Address: [address] [place] [id number] Telecom: Name: Cande Scott RN Position: [facility] ED RN W/OE and Tasks Member Role: Primary Care Nurse Name: Emily Virk RN Position: [facility] RN Member Role: Primary Care Nurse Name: Christie Franco RN Position: [facility] RN Member Role: Primary Care Nurse Care Team Related Persons Name: DSAH LIU Insurance Providers Guarantor name: PRASANNA NOE [facility] Information #: 1 Payer: HMO BLUE IN NETWORK Member Number: NA Policy Number: NA Group Number: NA
--- OUTSIDE RECORDS SUMMARY | 2024-06-29 17:11 | XMS_ITS | Continuity of Care Document ---
Author Organization [facility] Address [address] [place] [address]- Care Team Providers Care Staple Laster Name Role Phone Tommie PALACIOS, Citlalli Lobo Primary Care Physician [id number]): [facility] - 06/05/24 [facility] [address] [place], [place] [address] Attending Physician: Tangela Self MD Admitting Physician: Tangela Self MD Referring Physician: Citlalli Reilly MD Encounter Type: Office Visit Allergies, Adverse Reactions, Alerts Substance Criticality Severity [...] 1Result Comment: [facility] [id number] 2Admin Note: [facility] info given to patient Problem List [...] Confirmed Active Vitamin D deficiency Confirmed Active Vital Signs Most recent to oldest [Reference Range]: 1 Height 152.5 cm (05/29/24 8:27 AM) Weight 109.09 kg (05/29/24 8:27 AM) Oxygen Saturation [94-100 %] 98 % (05/29/24 8:27 AM) Pulse Rate [55-90 bpm] 88 bpm (05/29/24 8:27 AM) Body Mass Index [18.5-24.99 kg/m2] 46.91 kg/m2 *>HHI* (05/29/24 8:27 AM) Blood Pressure [90-138/55-84 mm Hg] 114/ 50mm Hg (05/29/24 8:27 AM) Mode of Delivery (Oxygen) Room air (05/29/24 8:27 AM) Blood pressure sites Arm, left (05/29/24 8:27 AM) Weight Obtained Via Patient/family state d (05/29/24 8:27 AM) Social History Social History Type Response Smoking Status Former smoker, quit more than 30 days ago; Type: Cigarettes; Tobacco use times per day: 1pack/day; Started at age: 16; Stopped at age: 49; entered on: 12/09/21 Sex Sex Representation Female (finding) Note * Toby Hardy: PERFORM Event Display: Patient Education/Instruction Authored Date: Ambulatory Adult Visit Summary [address] [address] Name: PRASANNA LIU : 1960?? Visit: 05/29/2024 08:18?? Ambulatory Visit Instructions ?? Your Care Team Primary Care Provider Citlalli Reilly MD? This Visit Provider Tangela Self MD Your Diagnosis Venous insufficiency Vitals Signs Pulse Rate: 88 bpm Height: 152.5 cm Systolic Blood Pressure: 114 mm Hg Weight: 109.09 kg Diastolic Blood Pressure:??50 mm Hg??Low Body Mass Index:??46.91 kg/m2??Critical Oxygen Saturation: 98 % Body surface area: 2.15 What to do next Follow-Up Appointments Follow Up with??Clair PALACIOS, Tangela Palomo When:??In 3 months Where: [address] [facility], [address] [facility] [place] [address]- Medications The list below reflects the information in our records and provided by you today along with any changes made during this visit. Please continue your medications until treatment is completed or stopped by your provider. If this is different from the information you have or there are other questions,please contact the prescribing provider. What How Much When Why Instructions New Durable Medical Equipment (Compression Stockings) See instructions Venous insufficiency surgical, knee length 20-30 mm Hg ?? Printed Prescription Unchanged Acetaminophen (Tylenol Extra Strength 500 mg oral tablet) 2 tab(s) Oral Every 8 hours Unchanged Albuterol (Ventolin HFA 108 mcg/ inh inhalation aerosol with adapter) 2 puff(s) Inhalation 4 times a day as needed for for wheezing Duration: 30 Days Unchanged Budesonide-Formoterol (Symbicort 160mcg/ 4.5mcg Inhaler) 2 puff(s) Inhalation Twice a day Duration: 90 Days Unchanged Montelukast (montelukast 10 mg oral tablet) 1 tab(s) Oral Daily in PM Asthma, moderate persistent Allergic rhinitis, seasonal Unchanged Multivitamin (Multivitamin Tablet) 1 tab(s) Oral Daily Unchanged Zolpidem (zolpidem 5 mg oral tablet) 1 tab(s) Oral Daily at Bedtime Duration: 30 Days Medications and Immunizations Administered Medications Given During Visit No medications given during this visit.?? Allergies (NKA means No Known Allergies) furosemide Levaquin??(rash) azithromycin??(Rash) levoFLOXacin??(Rash) sulfADIAZINE??(Rash) zinc sulfate ophthalmic??(Rash) Common Emergency Awareness Tips IS IT A STROKE? Act FAST and Check for these signs: FACE Does the face look uneven? ARM Does one arm drift down? SPEECH Does their speech sound strange? TIME Call at any sign of stroke ?? Heart Attack Signs Chest discomfort: Most heart attacks involve discomfort in the center of the chest and lasts more than a few minutes, or goes away and comes back. It can feel like uncomfortable pressure, squeezing, fullness or pain. Discomfort in upper body: Symptoms can include pain or discomfort in one or both arms, back, neck, jaw or stomach. Shortness of breath: With or without discomfort. Other signs: Breaking out in a cold sweat, nausea, or lightheaded. Remember, MINUTES DO MATTER. If you experience any of these heart attack warning signs, call 12-18- to get immediate medical attention! ?? Smoking can increase your chances of developing chronic health problems and can cause harmful effects to other family members in your house. If you smoke, you are strongly encouraged to quit. Please call [facility] at [phone] or [phone] ([phone]) or log in to [email or web address] for referrals to smoking cessation programs. ?? The National Suicide Prevention Hotline is available 09/11 if you or someone you know needs to find a reason to keep living. By calling 5-768-820-Easiest Credit Card To Get Approved For (3874) you'll be connected to a skilled, trained counselor at a crisis center in your area. [facility] You can view and manage your care through the patient portal or by using a health care aminata of your choosing. [employer] is a website that allows you to securely view your medical information including your hospital discharge summary, office visit summaries, medications and follow-up visits. You can also request appointments, renew medications, and request access to your medical information using a health care aminata of your choosing, or just ask a question. You can enroll at [email or web address] or register during your next office visit. [facility], in keeping with [facility] guidance, no longer requires face masks for staff, patientsor visitors in most situations. Similiar to time spent indoors at other locations, there is the chance that you were exposed to repiratory viruses during your time with us (such as flu or COVID-19). If you develop symptoms concerning for a viral respiratory infection, please seek testing (and treatment if indicated) from your medical provider or home test kit. ?? Disclaimer: The information provided is of a general nature and is intended to be used in conjunction with the recommendations and advice of your health care practitioner. Every effort has been made to ensure that the information provided is accurate and complete at the time it is provided to you however, as your needs change, or, as new information becomes available, different or additional instructions may be required. ?? If you have questions, please consult with your primary care provider or pharmacist, as appropriate. This information is not intended to serve as substitution for assessment and evaluation by a qualified health care provider. If you do not have a primary care provider, you may find a [facility] provider by calling [facility] at [phone]. Patient Care team information Care Team Personnel Name: Gina Savage RN Position: [facility] AMB Nurse Member Role: Primary Care Nurse Name: Sage Crisostomo RN Position: [facility] RN Member Role: Primary Care Nurse Name: Nash Wick RN Position: [facility] RN Member Role: Primary Care Nurse Name: Citlalli Reilly MD Position: Reference Physician Member Role: PCP Address: [address] [place] [id number] Telecom: Name: Cande Scott RN Position: [facility] ED RN W/OE and Tasks Member Role: Primary Care Nurse Name: Emily Virk RN Position: S RN Member Role: Primary Care Nurse Name: Christie Franco RN Position: [facility] RN Member Role: Primary Care Nurse Care Team Related Persons Name: NOEDASH Insurance Providers Guarantor name: PRASANNA LIU Health Plan Information #: 1 Payer: HMO BLUE IN NETWORK Member Number: [id number] Policy Number: NA Group Number: [id number] Health Plan Information #: 2 Payer: [employer] BLUE IN NETWORK Member Number: [id number] Policy Number: NA Group Number: NA
--- OUTSIDE RECORDS SUMMARY | 2024-06-29 17:11 | XMS_ITS | Continuity of Care Document ---
Author Organization [facility] Address [address] [place] [address] [address] [place] [address]- Care Team Providers Care Outdoor Adventure Leader Name Role Phone Tommie PALACIOS, Citlalli Lobo Primary Care Physician [phone] [place] [facility] [place] 05[place]29[place]24 - 06/28/24 [facility] [address] [place] [address] [place] [id number] Encounter Type: Triage Allergies, Adverse Reactions, [...] pneumococcal 23-valent vaccine 03/06/10 Given 1Result Comment: [facility] [id number] 2Admin Note: CDC info given to patient [...] Personnel Name: Gina Savage RN Position: [facility] AMB Nurse Member Role: Primary Care Nurse Name: Sage Crisostomo RN Position: [facility] RN Member Role: Primary Care Nurse Name: Nash Wick RN Position: [facility] RN Member Role: Primary Care Nurse Name: Citlalli Reilly MD Position: Reference Physician Member Role: PCP Address: [address] [place] [id number] Telecom: Name: Cande Scott RN Position: [facility] ED RN W/OE and Tasks Member Role: Primary Care Nurse Name: Emily Virk RN Position: [facility] RN Member Role: Primary Care Nurse Name: Christie Franco RN Position: [facility] RN Member Role: Primary Care Nurse Care Team Related Persons Name: DASH LIU Insurance Providers Guarantor name: PRASANNA NOE [facility] Information #: 1 Payer: HMO BLUE IN NETWORK Member Number: NA Policy Number: NA Group Number: NA
--- OUTSIDE RECORDS SUMMARY | 2024-06-29 17:11 | XMS_ITS | Clinical Summary ---
Author Organization [facility] Address [address] [place] [address] Care Team Providers Care Chisel Trimmer Name Role Phone Citlalli Reilly MD Primary Care Provider [phone] Social History Tobacco Use Types Packs/Day Years Used Date Smoking Tobacco: Never Assessed Sex and Gender Information Value Date Recorded Sex Assigned at Not on file Gender Identity Not on file Sexual Orientation Not on file Plan of Treatment Health Maintenance Due Date Last Done Comments Hepatitis C Virus Screening 1960 HIV Screening 01/19/1972 DTaP/Tdap/Td Vaccines (1 - Tdap) 1978 Pneumococcal Vaccines 50+ (1 of 1 - PCV) 2009 Zoster (Shingles) Vaccine (1 of 2) 2009 COVID-19 Vaccine (3 - season) 2023 04/28/2021, 06/25/2020 RSV Vaccine 60 years and older and Patients (1 - 1-dose 75+ series) 2034 Influenza Vaccine Discontinued 04/08/2011, 03/05/2010 Hepatitis B Vaccines Aged Out No long er eligible based on patient's age to complete this topic Care Teams Chisel Trimmer Relationship Specialty Start Date End Date Citlalli Reilly MD [address] [place] [phone] PCP - General Internal Medicine 10/06/22
--- OUTSIDE RECORDS SUMMARY | 2024-06-29 17:11 | XMS_ITS | Continuity of Care Document ---
Author Organization [facility] Address [address] [place] [address] [address] [place] [address]- Care Team Providers Care Round Up Ring Hand Name Role Phone Tommie PALACIOS, Citlalli Lobo Primary Care Physician En[place] [facility] Date(s): 05/29/24 - 06/28/24 [facility] [address] [place] [address] [place] [id number] Encounter Type: Triage Allergies, Adverse Reactions, Alerts [...] 1Result Comment: [facility] [id number] 2Admin Note: CDC info given to patient [...] Team Personnel Name: Gina Savage RN [facility] Nurse Member Role: Primary Care Nurse Name: Sage Crisostomo RN [facility] RN Member Role: Primary Care Nurse Name: Nash Wick RN Position[facility] RN Member Role: Primary Care Nurse Name: Citlalli Reilly MD Position: Reference Physician Member Role: PCP Address: [address] [place] [id number] Telecom: Name: Cande Scott RN Position: [facility] ED RN W/OE and Tasks Member Role: Primary Care Nurse Name: Emily Virk RN Position[facility] RN Member Role: Primary Care Nurse Name: Christie Franco RN [facility] RN Member Role: Primary Care Nurse Care Team Related Persons Name: DASH LIU Insurance Providers Guarantor name: PRASANNA NOE [facility] Information #: 1 Payer: HMO BLUE IN NETWORK Member Number: NA Policy Number: NA Group Number: NA
--- OUTSIDE RECORDS SUMMARY | 2024-06-29 17:11 | XMS_ITS | Data Portability ---
Author Organization [place] - [facility],, RADHA GONZALEZ MD Address [address] [address] Care Team Providers Care Community Product Specialist Name Role Phone AlysonCORAL PAULA Primary Care Provider Assessment No assessment recorded. Plan of Treatment Reminders Order Date Submit Date Provider Last Modified By Organization Details Last Modified Time Details Appointments ANNUAL EXAM 2025 08:20A M Radha Gonzalez MD Not available Not available Not available Lab cytology report, thin prep, smear or scraping, cervical or vaginal 2024 025 MAIE [facility] (Centralized Electronic Ordering - All Locations), Patient Can Go To The Location Of Their Choice, [id number] 05/25/2024 10:16:55 hemoglobi n, gastroint estinal, stool 2024 025 [email or web address] 1 In-Office Order, Internal Use Only DO Not Attach Compendium DO Not Attach Compendium, Do Not Delete/merge, 05/23/2024 09:31:39 pap test, thinprep, cervical 2023 024 [email or web address] [facility] (Centralized Electronic Ordering - All Locations), Patient Can Go To The Location Of Their Choice, [id number] 05/27/2023 07:34:21 fecal occult blood, stool 2023 024 [email or web address] 1 In-Office Order, Internal Use Only DO Not Attach Compendium DO Not Attach Compendium, Do Not Delete/merge, [id number] 05/20/2023 09:35:44 Referral None recorded. Procedures None recorded. Surgeries None recorded. Imaging MAMMO, screening , digital, bilateral - Breast Aspiratio n and/or Biopsy if needed 2024 025 evita [facility], [address], [address], [place], [address], 05/23/2024 11:14:11 bone density 2023 024 [facility]), [address] [place], [address], 04/27/2024 16:14:39 MAMMO, screening , digital, bilateral - Breast Aspiratio n and/or Biopsy if needed 2023 024 [facility]), [address] [place], [address], 04/25/2024 08:54:55 Medication Orders None recorded. Patient TargetsNo targets recorded. Patient Instructions Encounter Date Encounter Id Patient Instructions Last Modified By Organization Details Last Modified Time 05/20/2023 [id number] learning about healthy weight Not available 05/20/2023 09:35:44 She is here [...] information for Dr. Bassam Howe at the [facility]. Monthly self breast exam was taught, and stressed, and is advised to call if she discovers any new mass in the breast. Libido issues discussed. She does have atrophy, but has never tried a lubricant. Advised to try Astroglide, if not enough improvement then advised to call for telehealth to discuss possible vaginal estradiol. [email or web address] Not available 05/20/2023 10:03:21 05/23/2024 [id number] learning about healthy weight luciana Not available 05/23/2024 09:31:39 She is here for annual, doing well. She had a problem with her duodenum last summer and was hospitalized for 2 weeks. She has not called Dr. Howe about the hernia surgery but plans to do so soon. Recent bone density normal. Note from 2023: She is here as a new patient [...] information for Dr. Bassam Howe at the [facility]. _ She appears to be doing well. Monthly self breast exam was taught, and stressed, and is advised to call if she discovers any new mass in the breast. [email or web address] Not available 05/23/2024 09:32:22 Reason for Referral None Reported. Results Created Date Observation Date Name Description Value Unit Range Abnormal Flag Note LastModifiedBy Organization Detail LastModifiedTime 05/20/19 24 05/20/2023 [facility] CYTOL OGY results Elizabeth nt Name: ZORA OBRIEN Elizabeth sadler : 1959 (Age: 63) Lab Acces faraz #: [id number] Colle ction Date: Acces faraz Date: Sign Out Date: 2/7/2 024 Tissu e Sourc e: 1: THINP REP SUPERVISOR GAS METER REPAIR PAP TEST, VAGIN AL: Final Diagn osis: NEGAT ISABELLA FOR INTRA EPITH ELIAL LESIO N OR MALIG SEN . Satis facto ry for evalu ation . Clini jose Histo ry: Date of Last Menst rual Perio d: not avail able Menst rual Histo ry: Hyste recto my Post- menop ausal Contr acept isabella Histo ry: not avail able Ancil dane Testi ng: HPV (ASCU S) Case image d by the ThinP rep Imagi ng Syste m with mira weaverr marko polanco or josé miguel morel Perfo rmed at [facility] Refer ence [facility] Cyt[facility], [address] [place] Clini jose Histo ry (othe r): Z01.4 19, ROUTI NE SCREE N Phone #: [phone], On-Ca Patho logis t: [id number] Not Available [facility] (Centralized Electronic Ordering - All Locations) Patient Can Go To The Location Of Their Choice, [id number] 05/26/2023 10:45:42 05/20/19 24 05/20/2023 fecal occul t blood , stool Occult Blood negati ve Not Available In-Office Order Internal Use Only DO Not Attach Compendium DO Not Attach Compendium, Do Not Delete/merge, [id number] 05/20/2023 09:16:31 05/23/19 25 05/25/2024 IGP, RFX APTIM A HPV ASCU diagnosis: Commen t NEGAT ISABELLA FOR INTRA EPITH ELIAL LESIO N OR MALANI CHATTERJEE . Not Available [facility] ([facility]) [address] [facility], [place], [address], 05/25/2024 10:16:55 05/23/19 25 05/25/2024 IGP, RFX APTIM A HPV ASCU specimen adequacy: Commen t Satis facto ry for evalu ation . Not Available [facility] ([facility]) [address] [facility], [place], [address], 05/25/2024 10:16:55 05/23/19 25 05/25/2024 IGP, RFX APTIM A HPV ASCU clinician provided ICD10: Sony zarate Z01.4 19 Not Available [facility] ([facility]) [address] [place], [address], 05/25/2024 10:16:55 05/23/19 25 05/25/2024 IGP, RFX APTIM A HPV ASCU performed by: Sony Young, Adrian zarate (ASCP ) Not Available [facility] ([facility]) [address] [place], [address], 05/25/2024 10:16:55 05/23/19 25 05/25/2024 IGP, RFX APTIM A HPV ASCU . . Not Available [facility] ([facility]) [address] [place], [address], 05/25/2024 10:16:55 05/23/19 25 05/25/2024 IGP, RFX APTIM A HPV ASCU note: Sony zarate The Pap smear is a scree jackson test desani cruzd to aid in the detec tion of chidi ligna nt and malig nant condi tions of the uteri ne cervi x. It is not a diagn ostic proce dure and shoul d not be used as the sole means of detec ting cervi jose cance r. Both false -posi tive and false -nega tive repor ts do occur . Not Available [facility] ([facility]) [address] [place], [address], 05/25/2024 10:16:55 05/23/19 25 05/25/2024 IGP, RFX APTIM A HPV ASCU test methodology: Sony zarate This liqui d based ThinP rep(R ) pap test was scree yael with the use of an image guide sunni agustin. Not Available [facility] ([facility]) [address] [facility], [place], [address], 05/25/2024 10:16:55 05/23/19 25 05/25/2024 IGP, RFX APTIM A HPV ASCU . Commen t The HPV DNA refle x crite artur were not met with this speci men resul t there fore, no HPV testi ng was perfo rmed. Not Available [facility] ([facility]) [address] [facility], [place], [address], 05/25/2024 10:16:55 05/23/19 25 05/23/2024 hemog lobin , gastr ointe nando l, stool Occult Blood negati ve Not Available In-Office Order Internal Use Only DO Not Attach Compendium DO Not Attach Compendium, Do Not Delete/merge, [id number] 05/23/2024 09:05:55 04/25/1904/25/2024 MAMMO , scree jackson, digit al, bilat eral No observ ation record ed. [email or web address] Not Available 10/2024 09:19:58 04/27/19 25 04/26/2024 bone densi ty No observ ation record ed. AMIE Not Available 2024 15:13:59 Result Notes None recorded. Problems Name Problem SNOMED Code Status Onset Date Resolution Date Notes Provider Name and Address Organization Details Recorded Time Incisional hernia 429670112 Active 2023 Radha Gonzalez MD [address] [facility],[address], [place], [address], [place] - [facility], 4 10:00:25 Postsurgic al menopause 780908280 Active 2023 premature age 28 Radha Gonzalez MD [address] [facility],[address], [place], [address], [place] [facility], 4 10:00:48 Reduced libido 0811329 Active 2023 Radha Gonzalez MD [address] [facility],[address], [place], [address], [place] [facility], 4 10:01:02 Morbid obesity 111687411 Active 2023 Radha Gonzalez MD [address] [facility], [address], [place], [address], [place] [facility], 4 10:01:10 Problem Notes None recorded. Procedures Surgical History Date Name Laterality Status Provider Name and Address Organization Details Recorded Time 04/25/19 25 Most Recent Mammogram completed Angely Mecstefaniewcarmelita [place] - [facility], 05/02/2024 11:00:45 06/04/19 23 procedure on shoulder completed [place]ely Mecinduywor [place] [facility], 05/20/2023 09:12:14 05/21/19 22 procedure on knee completed Angely Mecinduywcarmelita [place] [facility], 05/20/2023 09:12:31 06/04/19 17 Appendectomy completed Angely Mecstefaniewcarmelita [place] [facility], 05/20/2023 09:12:50 05/22/19 11 cholecystectomy completed Angely Mecinduywor [place] - [facility], 05/20/2023 09:13:07 05/20/18 80 hysterectomy completed Angely Mecstefaniewcarmelita [place] [facility], 05/20/2023 09:14:07 Imaging Results Imaging Date Name Status LastModified by Organiz ation Details LastModified Time 04/25/2024 MAMMO, screening, digital, bilateral completed Information not available 04/25/2024 09:19:58 04/26/2024 bone density completed AMIE Information not available 05/05/2024 15:13:59 Procedure Notes None recorded. Medical Equipment None Reported. Allergies Allergen ID Allergen Name Allergen Category Reaction Reaction Severity Criticality Documentation Date Start Date Code Code System Note Provider Name and Address Organization Details Recorded Time 67274 Substance with sulfonami de structure and antibacte rial mechanism of action (substanc e) medicatio n rash Not available Not available 05/20/2023 38571 8003 SNOMED Angely Meczywor null, [place] [facility], 09:07:30 Medications Name Sig Start Date Stop [...] completed Not Available Not Available Not Available prednisone 20 mg tablet TAKE 2 TABLETS BY MOUTH EVERY DAY FOR 5 DAYS 05/23 completed Not Available Not Available Not Available pimecrolimu s 1 % topical cream Apply SMALL AMOUNT TO affected AREAS FOR 2-4 WEEKS active Not Available Not Available No t Available spironolact one 25 mg tablet TAKE 1/2 OF A TABLET BY MOUTH DAILY FOR 30 DAYS 05/23 completed Not Available Not Available Not Available pantoprazol e 40 mg tablet,iker yed release TAKE 1 TABLET BY MOUTH EVERY DAY 05/20 completed Not Available Not Available Not Available zolpidem 5 mg tablet TAKE 1 TABLET BY MOUTH AT BEDTIME NEEDED FOR SLEEP active Not Available Not Available No t Available nystatin 100,000 unit/gram topical powder APPLY TOPICALLY TWICE A DAY NEEDED active Not Available Not Available No t Available methylpredn isolone 4 mg tablets in a dose pack TAKE DIRECTED ON PACKET 05/20 completed Not Available Not Available Not Available albuterol sulfate HFA 90 mcg/actuati on aerosol inhaler INHALE 2 PUFFS 4 TIMES A DAY NEEDED FOR WHEEZING active Not Available Not Available No t [...] completed Not Available Not Available Not Available Vitamin D3 25 mcg (1,000 unit) capsule TAKE 1 CAPSULE BY MOUTH IN THE MORNING. active Not Available Not Available No t Available budesonide- formoterol HFA 160 mcg-4.5 mcg/actuati on aerosol inhaler INHALE 2 PUFFS TWICE A DAY active Not Available Not Available No t Available diclofenac 1 % topical gel APPLY 1 GM ON THE SKIN EVERY 6 HOURS AFFECTED AREA OF EACH FOOT 05/23 completed Not Available Not Available Not Available Vitals Date Recorded Heart rate Body temperature Body weight Body mass index (BMI) Body height Systolic blood pressure Diastolic blood pressure Provider Name and Address Organization Details Last Updated DateTime 4 93 /min 98 [degF] 955708. 55 g 46.4 kg/m2 152.4 cm 131 mm[Hg] 50 mm[Hg] Angely Zamora in [facility], 4 09:05:32 Date Recorded Body weight Body mass index (BMI) Body height Body temperature Heart rate Systolic blood pressure Diastolic blood pressure Provider Name and Address Organization Details Last Updated DateTime 5 924430. 41 g 47.8 kg/m2 152.4 cm 97.8 [degF] 78 /min 112 mm[Hg] 57 mm[Hg] Angely Zamora in [facility], 5 09:03:47 Social History Question Answer Notes LastModified by Organizat ion Details LastModified Time Tobacco Smoking Status Former Smoker [place] Forrest in [facility], 05/20/2023 09:10:14 What Is Your Level Of [...] Or The Highest Degree You Have Received? [id number] Information not available 05/20/2023 Are There Any Guns Present In Your Home? No Information not available 05/20/2023 To Which Gender Do You Self-identify? Female Information not available 05/20/2023 What Was The Date Of Your Most Recent Tobacco Screening? 05/23/2024 Information not available 05/23/2024 What Is Your Relationship Status? Information not available 05/20/2023 Are You Sexually Active? Yes Information not available 05/20/2023 At What Age Did You Start Smoking Tobacco? 16 Information not available 05/20/2023 Do You Feel Stressed (tense, Restless, Nervous, Or Anxious, Or Unable To Sleep At Night)? [id number] Information not available 05/20/2023 Do You Use Any Illicit Or Recreational Drugs? No Information not available 05/20/2023 How Many Years Have You Smoked Tobacco? 20 Information not available 05/20/2023 Do You Or Have You Ever Used Any Other Forms Of Tobacco Or Nicotine? No Information not available 05/20/2023 How Many Days In The Past Year Have You Consumed 4 Or More Drinks? 0 Information no t available 05/23/2024 Sex: Female Functional Status Question Answer Note [...] for MyRisk panel N Autoimmune Condition N Kidney or Bladder Problems N Thyroid Problems N Depression N Lung Disease N GI Problems N Defects or Inherited Disease N Anemia N History of Ovarian Cancer N History of Breast Cancer N RYAN exposure N BRCA testing in past N Osteopenia N Psychiatric Illness N Anxiety Disorder N Diabetes N Arthritis N Headaches or Migraines N Infertility N Asthma Y History of Cancer N Endometriosis N Hepatitis N Heart Disease N Hypertension N Osteoporosis N Gynecological History Statement/Question Response If Post Menopausal, Age at Menopause 28 Age at Menarche 12 Most Recent Mammogram 04/25/2024 Age at First Child 17 Obstetrics History GPAL:G 4 P 4 0 0 4 Type Value Full Term 4 Living 4 Total 4 Immunizations Vaccine Type Date Status Note Provider Nam e and Address Organization Details Recorded Time COVID-19, mRNA, LNP-S, PF, 30 mcg/0.3 mL dose 04/28/2021 completed [place] Forrest in [facility], 05/20/2023 09:06:38 COVID-19 vaccine, vector-nr, rS-Ad26, PF, 0.5 mL 06/25/2020 completed [place] Forrest in [facility], 05/20/2023 09:06:39 Tdap 10/14/2020 completed [place] in [facility], 05/20/2023 09:06:39 Past Encounters Encounter ID Performer Location Encounter Start Date Encounter Closed Date Diagnosis/Indication Diagnosis SNOMED-CT Code Diagnosis ICD10 Code Diagnosis Note [id number] MD RADHA Carmona MD [address] [place] [address] 05/20/2023 08:58:41 05/20/2023 12:06:59 Specialized medical examination 28538229 Z01.419 Screening for malignant neoplasm of rectum 109956194 Z12.12 Screening mammography 24 060225 Z12.31 Menopausal syndrome 1237 66546 N95.8 Incisional hernia 425930 000 K43.2 Postsurgic al menopause 571161526 E89.41 [id number] MD RADHA Carmona MD [address] [place] [address] 05/23/2024 08:59:51 05/23/2024 11:14:11 Specialized medical examination 42315379 Z01.419 Screening for malignant neoplasm of rectum 860230308 Z12.12 Screening mammography 24 064537 Z12.31 Health Concerns Section Related Observation LastModified by Organization Detai ls LastModified Time None Recorded Concern Status LastModified by Organization Details LastModified Time None Recorded Advance Directives Directive None Recorded Payers Encounter Date Sequence Insurance Name Policy Number Policy Bowles Covered Member ID Bowles Member ID Guarantor Name 05/20/2023 1 [place] [facility] [place] [place] [id number] Adrienne Monique [id number] Aprice Monique 05/23/2024 1 [place] [facility] [place] [place] [id number] Adrienne Monique [id number] Monique Notes Date Note Type Note Provider Name [...] to operate on. Radha Gonzalez MD [address] [facility],[address], [place], [address], [place] [facility], 05/20/2023 10:03:47 05/23/2024 text/html She is here for annual, doing well. She had a problem with her duodenum last summer and was hospitalized for 2 weeks. She has not called Dr. Howe about the hernia surgery but plans to do so soon. Note from 2023: She is here as a new patient for annual exam. She had a hysterectomy at age 28, including removing the ovaries, she is not certain why she had it done. She did not have an abnormal pap, or endometriosis. It was pain and problems. After that she took ERT for a few years, but not since age 39 or earlier.She is retired, doing well, would like ot lose weight but her insurance denied the weight loss injections that her doctor prescribed. BMI 46.4.She has a hernia in her incision, it causes pain at times, she went to see a general surgeon he told me I need it done but I'm too fat for him to operate on. She appears to be doing well.She has never had a bone density, one is ordered.she is given the name nad contact information for Dr. Bassam Howe at the [facility]. Radha Gonzalez MD [address] [facility],[address] [place] [address], [place] [facility], 05/23/2024 09:32:41 OBGyn Episode No OBEpisode recorded.
== END 2024-06-29 13:38 | disposition home or self-care (01) ==
LOC: HO.CT 13:37
PROVIDERS: PCP Internal Medicine; Visit Provider Internal Medicine
DX: R10.9 Unspecified abdominal pain (principal); K43.9 Ventral hernia without obstruction or gangrene; K42.9 Umbilical hernia without obstruction or gangrene; Z90.49 Acquired absence of other specified parts of digestive tract
CPT/HCPCS: 74176

== ENCOUNTER → 2024-06-29 13:39 | Outpatient (BNV) | payer BC, SELFPAY | PROVIDERS: PCP Internal Medicine; Visit Provider Specialist | DX: K43.9 Ventral hernia without obstruction or gangrene (principal) | CPT/HCPCS: 74176 ==

== ENCOUNTER 2024-08-14 14:06 | Outpatient (AMB) | payer BC, SELFPAY ==
--- NOTE | 2024-08-14 14:14 | A.OFFPC_ITS ---
Vital Signs 08/14/24 14:20 Height 5 ft 1 in Weight 246 lb BMI 46.5 BP 114/52 L Blood Pressure Location Lt brachial Position Sitting Respiration 16 Pulse 83 Pulse Source Pulse Oximeter Pulse Oximetry (%) 96 Oxygen Delivery Method Room Air Intake Visit Reasons: follow up 04/20 Intake Note: Follow up. Needs a refill on Zolpidem. Allergies azithromycin Allergy (Unknown, Verified 05/26/24 09:47) Rash furosemide Allergy (Unknown, Verified 05/26/24 09:47) Unknown levofloxacin [From Levaquin] Allergy (Unknown, Verified 05/26/24 09:47) Rash levothyroxine Allergy (Unknown, Verified 05/26/24 09:47) Rash sulfadiazine Allergy (Unknown, Verified 05/26/24 09:47) Rash zinc sulfate Allergy (Unknown, Uncoded 05/26/24 09:47) rash Tobacco use date assessed: 08/14/24 Fall risk assessment: No Falls in past year Last assessed Fall Risk: 08/14/24 Dental Screening Dental Screen Date: 08/14/24 Did you have a dental visit in the last 12 months?: Yes Did you have a dental problem in the last 6 months where you did not have access to dental care?: No Was dental information given to patient?: Patient has dentist HPI HPI Comments History of Present Illness Details The patient is a 64 year old female with pmhx obesity, MEHDI, GERD, hyperglycemia, asthma, insomnia presenting for preoperative cardiovascular exam Plan for hernia repair November 02. Dr Bassam Howe No chest pain, no increased exertional dyspnea Can walk 1/2 mile without difficulty MEHDI on cpap No issues with anesthesia in the past. CV: Dyspnea 2022. Had cardiology work up, Dr Huitron at [facility]. No chest pain. No increased LE edema Pulm: Asthma, MEHDI. On symbicort, ventolin. Dyspnea: Stable. Bad over summer, fall 2022. Had flu A, asthma exacerbation. Nuclear stress normal. Saw cardiology. Referred to pulmonary GI: CT question hepatic steatosis or cirrhosis, portal hypertension. MSK: Right shoulder pain. s/p arthroscopy. Did PT stable BH: Insomnia is stable on zolpidem. s/p hysterectomy Did cologuard ROS see HPI PHYSICAL EXAM: GENERAL: Alert and oriented x 3. NAD EYES: EOMI. Anicteric. HENT: Moist mucous membranes. No scleral icterus. No cervical lymphadenopathy. LUNGS: Clear to auscultation bilaterally. CARDIOVASCULAR: Regular rate and rhythm. systolic murmur ABDOMEN: Soft, non-tender to palpation, +bs EXTREMITIES: No edema. Non-tender. SKIN: No rashes or lesions. Warm. NEUROLOGIC: No focal neurological deficits. CN II-XII grossly intact PSYCHIATRIC: Cooperative. Appropriate mood and affect [facility] Medical History Cataract, right eye Surgical History History of partial colectomy History of hysterectomy H/O total knee replacement Family History Mother Lymphoma Sister Stroke Cancer Social History Housing: House Alcohol intake: current Patient Tobacco Use Status: Former Tobacco user Cigarette Packs Per Day: 11 Years Smoked: 33 Packs Per Year: 363 e-Cigarette/Vaping Use: Never Used Second Hand Smoke Exposure: No Use of substances other than those prescribed or required for medical reasons: No service: No Current occupational status: employed and retired Current occupational exposures/hazards: No Cognitive needs: No Hearing needs: No Vision needs: Yes (glasses) Questionnaire Thrive Questionnaire Date Thrive assessed: 05/26/24 I am a: Patient What is your living situation today?: I have a steady place to live Within the past 12 months, did the food you bought not last and you didn't have the money to get more?: Never true Within the past 12 months, did you worry whether your food would run out before you got money to buy more?: Never true Do you have trouble paying for medicines?: No Do you have trouble getting transportation to medical appointments?: No Do you have trouble paying your heating and electricity bill?: No Do you have trouble taking care of your child, family member or friend?: No Do you have trouble with day-to-day activities such as bathing, preparing meals, shopping, managing finances, etc.?: No Are you currently unemployed and looking for a job?: No Are you interested in more education?: No Please select the resources that you would like help with: None Currently or been in a relationship where the following occur: No concerns reported THRIVE Score: 0 AUDIT C Alcohol Use Questionnaire (AUDIT-C) 1. How often do you have a drink containing alcohol?: Monthly or less 2. How many drinks containing alcohol do you have on a typical day when you are drinking?: 1 or 2 3. How often do you have six or more drinks on one occasion?: Never Total Score: 1 RAMBO-7 AMB Questionnaire RAMBO-7 Date RAMBO - 7 assessed: 05/26/24 Source: Developed by Drs. Hira Long, Mary Wolff, Fabian Robert and colleagues, with an educational brittney from [employer]. Physical exam (Primary Care) Vital Signs: Last Vital Signs Pulse 83 08/14/24 14:20 Resp 16 08/14/24 14:20 BP 114/52 L 08/14/24 14:20 Pulse Ox 96 08/14/24 14:20 Oxygen Delivery Method Room Air 08/14/24 14:20 BMI result Body Mass Index 46.5 Tobacco/Smoking Status: Tobacco use Status Tobacco use date assessed 08/14/24 08/14/24 14:21 Patient Tobacco Use Status Former Tobacco user 08/14/24 14:22 e-Cigarette/Vaping Use Never Used 08/14/24 14:22 Thrive Assessment: Date of Thrive Assessment Date Thrive assessed 05/26/24 08/14/24 14:17 Currently or been in a relationship where the following occur: No concerns reported Coding Level of Care Code Est Pt Level 4 (78661) Complex EM visit Add On G2211 Diagnoses Preop cardiovascular exam Z01.810 Periumbilical hernia K42.9 MEHDI (obstructive sleep apnea) G47.33 Assessment & Plan Assessment & Plan (1) Preop cardiovascular exam: Code(s): Z01.810 - Encounter for preprocedural cardiovascular examination Category: Medical (2) Periumbilical hernia: Code(s): K42.9 - Umbilical hernia without obstruction or gangrene Category: Medical (3) MEHDI (obstructive sleep apnea): Code(s): G47.33 - Obstructive sleep apnea (adult) (pediatric) Category: Medical Plan 64 y/o for preoperative cardiac exam MEHDI on cpap. Stable exertional dyspnea, likely due to weight and deconditioning. METS>4. Cardiac work up reassuring. EKG today without ischemic changes Labs ordered Average risk patient for average risk surgery. May proceed without further cardiac work up Orders: Orders Comprehensive Met. Panel Today I73.9 - Peripheral vascular disease, unspecified, K42.9 - Umbilical hernia without obstruction or gangrene, K43.9 - Ventral hernia without obstruction or gangrene, Z01.810 - Encounter for preprocedural cardiovascular examination Prothrombin Time INR Today I73.9 - Peripheral vascular disease, unspecified, K42.9 - Umbilical hernia without obstruction or gangrene, K43.9 - Ventral hernia without obstruction or gangrene, Z01.810 - Encounter for preprocedural cardiovascular examination Complete Blood Count Auto Diff Today I73.9 - Peripheral vascular disease, unspecified, K42.9 - Umbilical hernia without obstruction or gangrene, K43.9 - Ventral hernia without obstruction or gangrene, Z01.810 - Encounter for preprocedural cardiovascular examination AMB EKG-In Office Today K43.9 - Ventral hernia without obstruction or gangrene, Z01.810 - Encounter for preprocedural cardiovascular examination Mixing Study (PT/PTT) Today I73.9 - Peripheral vascular disease, unspecified, K42.9 - Umbilical hernia without obstruction or gangrene, K43.9 - Ventral hernia without obstruction or gangrene, Z01.810 - Encounter for preprocedural cardiovascular examination
[2024-08-14 14:20] VITALS: BP 114/52; PULSE 83; RESP 16; O2SAT 96; BMI 46.5
--- OUTSIDE RECORDS SUMMARY | 2024-08-14 16:53 | XMS_ITS ---
Author Name [facility] Organization Unknown Care Team Organization Name Specialty Phone Email Start Date End [facility] 01/21/2023 01/22/20 [facility] 09/19/2022 [facility]
--- OUTSIDE RECORDS SUMMARY | 2024-08-14 16:53 | XMS_ITS | Data Portability ---
Author Organization [place] [facility],, RADHA GONZALEZ MD Address [address] [address] Care Team Providers Care Brothel Keeper Name Role Phone AlysonCORAL PAULA Primary Care Provider Assessment No assessment recorded. Plan of Treatment Reminders Order Date Submit Date Provider Last Modified By Organization Details Last Modified Time Details Appointments ANNUAL EXAM 2025 08:20A M Radha Gonzalez MD Not available Not available Not available Lab cytology report, thin prep, smear or scraping, cervical or vaginal 2024 025 AMIE [facility] (Centralized Electronic Ordering - All Locations), Patient Can Go To The Location Of Their Choice, [id number] 05/25/2024 10:16:55 hemoglobi n, gastroint estinal, stool 2024 025 [email or web address] 1 In-Office Order, Internal Use Only DO Not Attach Compendium DO Not Attach Compendium, Do Not Delete/merge, 05/23/2024 09:31:39 pap test, thinprep, cervical 2023 024 [email or web address] [facility] (Centralized Electronic Ordering - All Locations), Patient Can Go To The Location Of Their Choice, [id number] 05/27/2023 07:34:21 fecal occult blood, stool 2023 024 [email or web address] 1 In-Office Order, Internal Use Only DO Not Attach Compendium DO Not Attach Compendium, Do Not Delete/merge, [id number] 05/20/2023 09:35:44 Referral None recorded. Procedures None recorded. Surgeries None recorded. Imaging MAMMO, screening , digital, bilateral - Breast Aspiratio n and/or Biopsy if needed 2024 025 evita [facility], [address], [address], [place], [address], 05/23/2024 11:14:11 bone density 2023 024 [facility]), [address] [place], [address], 04/27/2024 16:14:39 MAMMO, screening , digital, bilateral - Breast Aspiratio n and/or Biopsy if needed 2023 024 [facility]), [address] [place], [address], 04/25/2024 08:54:55 Medication Orders None recorded. Patient TargetsNo targets recorded. Patient Instructions Encounter Date Encounter Id Patient Instructions Last Modified By Organization Details Last Modified Time 05/20/2023 [id number] learning about healthy weight Not available 05/20/2023 [...] information for Dr. Bassam Howe at the [facility]. Monthly self breast exam was taught, and stressed, and is advised to call if she discovers any new mass in the breast. Libido issues discussed. She does have atrophy, but has never tried a lubricant. Advised to try Astroglide, if not enough improvement then advised to call for telehealth to discuss possible vaginal estradiol. [email or web address] Not available 05/20/2023 10:03:21 05/23/2024 [id number] learning about healthy weight luciana Not available [...] information for Dr. Bassam Howe at the [facility]. _ She appears to [...] Tissu e Sourc e: 1: THINP REP MASTER COSMETOLOGIST PAP TEST, VAGIN AL: Final Diagn osis: [...] or josé miguel morel Perfo rmed at [facility] Refer ence [facility], [address] [place] Clini jose Histo ry (othe r): Z01.4 19, ROUTI NE SCREE N Phone #: [phone], On-Ca Patho logis t: [id number] Not Available [facility] (Centralized Electronic Ordering - All Locations) Patient Can Go To The Location Of Their Choice, [id number] 05/26/2023 10:45:42 05/20/19 24 05/20/2023 fecal occul t blood , stool Occult Blood negati ve Not Available In-Office Order Internal Use Only DO Not Attach Compendium DO Not Attach Compendium, Do Not Delete/merge, [id number] 05/20/2023 09:16:31 05/23/19 25 05/25/2024 IGP, RFX APTIM A HPV ASCU diagnosis: Commen t NEGAT ISABELLA FOR INTRA EPITH ELIAL LESIO N OR MALANI CHATTERJEE . Not Available [facility] ([facility]) [address] [facility], [place], [address], 05/25/2024 10:16:55 05/23/19 25 05/25/2024 IGP, RFX APTIM A HPV ASCU specimen adequacy: Commen t Satis facto ry for evalu ation . Not Available [facility] ([facility]) [address] [facility], [place], [address], 05/25/2024 10:16:55 05/23/19 25 05/25/2024 IGP, RFX APTIM A HPV ASCU clinician provided ICD10: Sony zarate Z01.4 19 Not Available [facility] ([facility]) [address] [place], [address], 05/25/2024 10:16:55 05/23/19 25 05/25/2024 IGP, RFX APTIM A HPV ASCU performed by: Sony Young, Adrian zarate (ASCP ) Not Available [facility] ([facility]) [address] [place], [address], 05/25/2024 10:16:55 05/23/19 25 05/25/2024 IGP, RFX APTIM A HPV ASCU . . Not Available [facility] ([facility]) [address] [place], [address], 05/25/2024 10:16:55 05/23/19 25 05/25/2024 IGP, RFX [...] ts do occur . Not Available [facility] ([facility]) [address] [place], [address], 05/25/2024 10:16:55 05/23/19 25 05/25/2024 IGP, RFX APTIM A HPV ASCU test methodology: Sony zarate This liqui d based ThinP rep(R ) pap test was scree yael with the use of an image guide sunni agustin. Not Available [facility] ([facility]) [address] [facility], [place], [address], 05/25/2024 10:16:55 05/23/19 25 05/25/2024 IGP, RFX APTIM A HPV ASCU . Commen t The HPV DNA refle x crite artur were not met with this speci men resul t there fore, no HPV testi ng was perfo rmed. Not Available [facility] ([facility]) [address] [facility], [place], [address], 05/25/2024 10:16:55 05/23/19 25 05/23/2024 hemog lobin , gastr ointe nando l, stool Occult Blood negati ve Not Available In-Office Order Internal Use Only DO Not Attach Compendium DO Not Attach Compendium, Do Not Delete/merge, [id number] 05/23/2024 09:05:55 04/25/1904/25/2024 MAMMO , scree jackson, digit al, bilat eral No observ ation record ed. [email or web address] Not Available 10/2024 09:19:58 04/27/19 25 04/26/2024 bone densi ty No observ ation record ed. AMIE Not Available 2024 15:13:59 Result Notes None recorded. Problems Name Problem SNOMED Code Status Onset Date Resolution Date Notes Provider Name and Address Organization Details Recorded Time Incisional hernia 123427726 Active 2023 Radha Gonzalez MD [address] [facility], [place], [address], [place] [facility], 4 10:00:25 Postsurgic al menopause 768813285 Active 2023 premature age 28 Radha Gonzalez MD [address] [facility],[address], [place], [address], [place] [facility], 4 10:00:48 Reduced libido 6626219 Active 2023 Radha Gonzalez MD [address] [facility],[address], [place], [address], [place] [facility], 4 10:01:02 Morbid obesity 253811356 Active 2023 Radha Gonzalez MD [address] [facility], [address], [place], [address], [place] [facility], 4 10:01:10 Problem Notes None recorded. Procedures Surgical History Date Name Laterality Status Provider Name and Address Organization Details Recorded Time 04/25/19 25 Most Recent Mammogram completed Angely Mecstefaniewcarmelita [place] [facility], 05/02/2024 11:00:45 06/04/19 23 procedure on shoulder completed Angely Mecinduywor [place] [facility], 05/20/2023 09:12:14 05/21/19 22 procedure on knee completed Angely Mecinduywcarmelita [place] [facility], 05/20/2023 09:12:31 06/04/19 17 Appendectomy completed Angely Mecstefaniewcarmelita [place] [facility], 05/20/2023 09:12:50 05/22/19 11 cholecystectomy completed Angely Mecinduywor [place] [facility], 05/20/2023 09:13:07 05/20/18 80 hysterectomy completed Angely Mecstefaniewcarmelita [place] [facility], 05/20/2023 09:14:07 Imaging Results Imaging Date Name [...] Name and Address Organization Details Recorded Time 13672 Substance with sulfonami de structure and antibacte rial mechanism of action (substanc e) medicatio n rash Not available Not available 05/20/2023 05194 8003 SNOMED Angely Meczywor null, [place] - [...] Updated DateTime 4 93 /min 98 [degF] 744795. 55 g 46.4 kg/m2 152.4 cm 131 mm[Hg] 50 mm[Hg] Angely Zamora in [facility], 4 09:05:32 Date Recorded Body weight Body mass index (BMI) Body height Body temperature Heart rate Systolic blood pressure Diastolic blood pressure Provider Name and Address Organization Details Last Updated DateTime 5 538428. 41 g 47.8 kg/m2 152.4 cm 97.8 [degF] 78 /min 112 mm[Hg] 57 mm[Hg] Angely Zamora in [facility], 5 09:03:47 Social History Question Answer Notes LastModified by Organizat ion Details LastModified Time Tobacco Smoking Status Former Smoker [place] Forrest in [facility], 05/20/2023 09:10:14 What Is [...] Or The Highest Degree You Have Received? SF21406-0 Information not available 05/20/2023 Are There Any [...] Anxious, Or Unable To Sleep At Night)? CX66189-3 Information not available 05/20/2023 Do You Use [...] Problems N Kidney or Bladder Problems N GI Problems N Lung Disease N Depression N Defects or Inherited Disease N Anemia [...] mL dose 04/28/2021 completed SHABBIR Forrest in [facility], 05/20/2023 09:06:38 COVID-19 vaccine, vector-nr, rS-Ad26, PF, 0.5 mL 06/25/2020 completed SHABBIR Forrest in [facility], 05/20/2023 09:06:39 Tdap 10/14/2020 completed SHABBIR Forrest in [facility], 05/20/2023 09:06:39 Past Encounters Encounter ID Performer Location Encounter Start Date Encounter Closed Date Diagnosis/Indication Diagnosis SNOMED-CT Code Diagnosis ICD10 Code Diagnosis Note [id number] MD RADHA Carmona MD [address] [employer] [address] [place] [address] 05/20/2023 08:58:41 05/20/2023 12:06:59 Specialized medical examination 97257209 Z01.419 Screening for malignant neoplasm of rectum 595807740 Z12.12 Screening mammography 24 751605 Z12.31 Menopausal syndrome 1237 38775 N95.8 Incisional hernia 452069 000 K43.2 Postsurgic al menopause 089142977 E89.41 [id number] MD RADHA Carmona MD [address] [place] [address] 05/23/2024 08:59:51 05/23/2024 11:14:11 Specialized medical examination 31235890 Z01.419 Screening for malignant neoplasm of rectum 247441227 Z12.12 Screening mammography 24 974313 Z12.31 Health Concerns Section Related Observation LastModified by Organization Detai ls LastModified Time None Recorded Concern Status LastModified by Organization Details LastModified Time None Recorded Advance Directives Directive None Recorded Payers Encounter Date Sequence Insurance Name Policy Number Policy Bowles Covered Member ID Bowles Member ID Guarantor Name 05/20/2023 1 [place] [facility] [place] [id number] Adrienne Monique [id number] Aprice Monique 05/23/2024 1 [place] [facility] [place] [id number] Adrienne Monique [id number] Monique Notes Date Note Type Note Provider [...] to operate on. Radha Gonzalez MD [address] [facility],[address], [place], [address], [place] [facility], [...] information for Dr. Bassam Howe at the [facility]. Radha Gonzalez MD [address] [facility],[address] [place] [place] [address], [place] [facility], 05/23/2024 09:32:41 OBGyn Episode No OBEpisode recorded.
--- OUTSIDE RECORDS SUMMARY | 2024-08-14 16:54 | XMS_ITS | Clinical Summary ---
Author Organization [facility] Address [address] [place] [address] Care Team Providers Care Varnish Dipper Name Role Phone Citlalli Reilly MD Primary Care Provider [phone] Social History Tobacco Use Types Packs/Day Years Used Date Smoking Tobacco: Never Assessed Comments Unknown Sex and Gender Information Value Date Recorded Sex Assigned at Not on file Legal Sex Female 6:59 PM EST Gender Identity Not on file Sexual Orientation [...] age to complete this topic Care Teams Varnish Dipper Relationship Specialty Start Date End Date Citlalli Reilly MD [address] [place] [phone] PCP - General Internal Medicine 10/06/22
--- OUTSIDE RECORDS SUMMARY | 2024-08-14 16:54 | XMS_ITS | Clinical Summary ---
Author Organization [facility] Facility Address [address] [place] [address] Care Team Providers Care High School Mathematics Teacher Name Role Phone Citlalli Reilly MD Primary Care Provider [phone] Allergies Active Allergy Reactions Criticality Noted Date [...] Active Symbicort 160-4.5 MCG/ACT inhaler 3 Active Active Problems Problem Noted Date Diagnosed [...] 12/22/2022 Drug therapy finding 01/29/2021 02/02/2023 Immunizations Immunization Administration Dates Next Due Influenza, Unspecified 04/08/2011,03/05/2010 [...] Colorectal Cancer Screening: Sigmoidoscopy 01/19/2008 Pneumococcal Vaccine: 50+ Years (2 of 2 - PCV) 03/06/2011 03/06/2010 Diabetes: Hemoglobin A1C 12/22/2022 Diabetes: Ophthalmology Exam 12/22/2022 Diabetes: Pedal Pulse Checked 12/22/2022 Diabetes: Sensory Foot Exam 12/22/2022 Diabetes: Visual Foot Exam 12/22/2022 Influenza Vaccine (Season Ended) 2024 04/08/2011, 03/05/2010 Pneumococcal Vaccine: Peds ( 0 to 5 Years) and At-Risk Patients (6 to 49 Years) Discontinued 03/06/2010 Hepatitis B Vaccine Aged Out No longe r eligible based on patient's age to complete this topic Insurance * Guarantor: Adrienne Amaya Account Type Relation to Patient Date of Phone Billing Address Personal/Family Self 1960 [address] [place] [address] [facility] * Guarantor: Adrienne Amaya Account Type Relation to Patient Date of Phone Billing Address Personal/Family Self 1960 [address] [place] [address] [facility] Care Teams High School Mathematics Teacher Relationship Specialty Start Date End Date Citlalli Reilly MD [address] [place] [address] PCP - General Internal Medicine 12/22/22
== END 2024-08-14 15:15 | disposition home or self-care (01) ==
LOC: HO.HMCFM 14:06
PROVIDERS: PCP Internal Medicine; Visit Provider Internal Medicine
DX: Z01.810 Encounter for preprocedural cardiovascular examination (principal); K42.9 Umbilical hernia without obstruction or gangrene; G47.33 Obstructive sleep apnea (adult) (pediatric)

== ENCOUNTER 2024-08-15 11:12 | Outpatient (REF) | payer BC, SELFPAY ==
--- OUTSIDE RECORDS SUMMARY | 2024-08-15 13:10 | XMS_ITS | Clinical Summary ---
Author Organization [facility] Facility Address [address] [place] [address] Care Team Providers Care Laundry Manager Name Role Phone Citlalli Reilly MD Primary Care Provider [phone] Allergies Active Allergy Reactions Criticality Noted Date [...] Billing Address Personal/Family Self 1960 [address] [place] [address] [facility] * Guarantor: Adrienne Amaya Account Type Relation to Patient Date of Phone Billing Address Personal/Family Self 1960 [address] [place] [address] [facility] Care Teams Laundry Manager Relationship Specialty Start Date End Date Citlalli Reilly MD [address] [place] [id number] PCP - General Internal Medicine 12/22/22
--- OUTSIDE RECORDS SUMMARY | 2024-08-15 13:10 | XMS_ITS | Clinical Summary ---
Author Organization [facility] Address [address] [place] [address] Care Team Providers Care Chief Librarian Music Department Name Role Phone Citlalli Reilly MD Primary Care Provider [phone] Social History Tobacco Use Types Packs/Day Years [...] age to complete this topic Care Teams Chief Librarian Music Department Relationship Specialty Start Date End Date Citlalli Reilly MD [address] [place] [phone] PCP - General Internal Medicine 10/06/22
[2024-08-15 14:21] LABS: MANUAL DIFF FLAG NO
[2024-08-15 14:26] LABS: Basophils Percent Auto 0.8 % (0-2); Eosinophils Absolute Auto 0.2 X10*3/uL (0.0-0.4); Hematocrit 38.6 % (37.0-47.0); Hemoglobin 12.5 g/dl (12.0-16.0); Lymphocytes Percent Auto 24.3 % (20-40); Mean Corpuscular HGB Conc 32.4 g/dl (31.0-35.0); Mean Corpuscular Hemoglobin 30.1 pg (27.0-33.0); Mean Platelet Volume 10.1 fL (9.4-12.3); Monocytes Absolute Auto 0.4 X10*3/uL (0.1-1.2); Monocytes Percent Auto 9.5 % (2-11); Neutrophils Absolute Auto 2.4 x10*3/uL (2.0-8.3); Neutrophils Percent Auto 60.4 % (45-73); Platelet Count 100 X10*3/uL (160-400); Red Blood Count 4.15 X10*6/uL (4.20-5.50); Red Cell Distribution Width 15.3 % (11.0-16.0)
[2024-08-15 14:29] LABS: INTERNATIONAL NORM RATIO 1.1 (0.9-1.1); Prothrombin Time 13.2 SEC (10.9-12.4)
[2024-08-15 15:02] LABS: Alanine Aminotransferase 30 U/L (0-31); Albumin Level 3.3 g/dL (3.5-5.0); Alkaline Phosphatase 147 U/L (39-117); Anion Gap 9 (12-20); Aspartate Amino Transferase 60 U/L (5-31); Bilirubin Total 2.4 mg/dL (0.0-1.0); Blood Urea Nitrogen 14 mg/dL (9-16); Calcium 8.7 mg/dL (8.4-10.2); Carbon Dioxide 26 mmol/L (22-29); Chloride 112 mmol/L (96-108); Estimated Glomerular Filt Rate > 60; Glucose Random 110 mg/dL (60-115); Potassium 3.8 mmol/L (3.3-5.1); Sodium 143 mmol/L (135-145); Total Protein 6.2 g/dL (6.5-8.0)
[2024-08-18 19:09] LABS: Incubated PTT-LA Mix CORRECTED; Mixing Study - PT 13.2 sec (9.0-11.5); PTT LA 42 sec (< OR = 40); PTT-LA Mix CORRECTED
== END 2024-08-15 11:13 | disposition home or self-care (01) ==
LOC: HO.WFDLDS 11:12
PROVIDERS: Visit Provider Internal Medicine
DX: K42.9 Umbilical hernia without obstruction or gangrene (principal); K43.9 Ventral hernia without obstruction or gangrene; I73.9 Peripheral vascular disease, unspecified; Z01.810 Encounter for preprocedural cardiovascular examination
CPT/HCPCS: 36415; 80053; 85025; 85610; 85611; 85732

== ENCOUNTER → 2024-09-14 13:25 | Outpatient (BNV) | payer BC, SELFPAY | PROVIDERS: PCP Internal Medicine; Referring Provider Internal Medicine; Visit Provider Internal Medicine | DX: D69.6 Thrombocytopenia, unspecified (principal) | CPT/HCPCS: 99204 ==

== ENCOUNTER 2024-12-21 15:22 | Outpatient (AMB) | payer BC, SELFPAY ==
--- OUTSIDE RECORDS SUMMARY | 2024-12-16 23:59 | XMS_ITS | Continuity of Care Document ---
Author Organization [facility] edicine Address [address] [place] [address]- Care Team Providers Care Child Caregiver Name Role Phone Tommie PALACIOS, Citlalli Lobo Primary Care Physician [phone] [place] [facility] [place]): 11/16/24 - 12/16/24 [facility] Pulmonary Medicine [address] [place] [address] Encounter Type: Triage Allergies, Adverse Reactions, Alerts [...] 23-valent vaccine 03/06/10 Given 1Result Comment: [facility] [id number] 2Admin Note: [facility] info given to patient Medications Compression Stockings See Instructions, # 1 each, Maintenance, surgical, knee length 20-30 mm Hg, 05/29/24 8:55:00 AM EST,Supply Start Date: 05/29/24 Status: Ordered Medication Dispense Status: Completed Quantity: 1.0 Unit: each Total Allowed Fills: 1 Fills Dispensed: 0 Indications: Venous insufficiency (chronic) (peripheral); montelukast 10 mg oral tablet 10 mg, 1, tablet, By Mouth, Daily in PM, # 30 tablet, Refills 11, Tot. Refills 11, Maintenance, 02/25/24 10:23:00 AM EST, Route to Pharmacy Electronically, [facility]/pharmacy #[id number], Partial fill upon patient request if the prescription is for a schedule II opioid drug., 156, cm, 02/25/24 10:03:00 EST, Height, 114, kg, 12/09/22 14:11:00 EDT, Dry Weight Start Date: 02/25/24 Status: Ordered Medication Dispense Status: Completed Quantity: 30.0 Unit: tablet Total Allowed Fills: 12 Fills Dispensed: 0 Indications: Other seasonal allergic rhinitis; Moderate persistent asthma, uncomplicated; Multivitamin Tablet 1 tablet, By Mouth, Daily, # 30 tablet, 0 Refills, Maintenance, 12/18/14 4:37:44 PM EDT, Tablet Start Date: 12/18/14 Status: Ordered Medication Dispense Status: Completed Quantity: 30.0 Unit: tablet Total Allowed Fills: 1 Fills Dispensed: 0 Tylenol Extra Strength 500 mg oral tablet 2 tablet = 1,000 mg, By Mouth, Every 8 hours, 0 Refills, Maintenance, 07/15/22 9:13:00 AM EDT, Partial fill upon patient request if the prescription is for a schedule II opioid drug. Start Date: 07/15/22 Status: Ordered Medication Dispense Status: Completed Total Allowed Fills: 1 Fills Dispensed: 0 Ventolin HFA 108 mcg/inh inhalation aerosol with adapter 2 puffs, Inhalation, 4 times a day, PRN for wheezing, # 18 Gm, 11 Refills, Maintenance, 07/26/23 12:15:00 PM EDT, Aerosol, [facility]/pharmacy #[id number], 156, cm, 02/22/23 9:16:00 EST, Height, 114, kg, 12/09/22 14:11:00 EDT, Dry Weight Start Date: 07/26/23 Stop Date: 07/20/24 Status: Ordered Medication Dispense Status: Completed Quantity: 18.0 Unit: g Total Allowed Fills: 12 Fills Dispensed: 0 zolpidem 5 mg oral tablet 1 tablet = 5 mg, By Mouth, Daily at bedtime, # 30 tablet, 3 Refills, Maintenance, 07/26/23 12:16:00 PM EDT, [facility]/pharmacy #[id number], Partial fill upon patient request if the prescription is for a schedule II opioid drug., 156, cm, 02/22/23 9:16:00 EST, Height, 114, kg, 12/09/22 14:11:00 EDT, Dry Weight Start Date: 07/26/23 Stop Date: 11/23/23 Status: Ordered Medication Dispense Status: Completed Quantity: 30.0 Unit: tablet Total Allowed Fills: 4 Fills Dispensed: 0 Problem List Condition Confirmation Course Effective Dates [...] Team Personnel Name: Gina Savage RN Position: [facility] AMB Nurse Member Role: Primary Care Nurse Name: Sage Crisostomo RN Position: [facility] Mathieu RN Member Role: Primary Care Nurse Name: Nash Wick RN Position: [facility] RN Member Role: Primary Care Nurse Name: Citlalli Reilly MD Position: Reference Physician Member Role: PCP Address: [address] [place] [address] Telecom: Name: Cande Scott RN Position: [facility] ED RN W/OE and Tasks Member Role: Primary Care Nurse Name: Emily Virk RN Position: [facility] RN Member Role: Primary Care Nurse Name: Christie Franco RN Position: [facility] RN Member Role: Primary Care Nurse Care Team Related Persons Name: NOEDASH Insurance Providers Guarantor name: PRASANNA NOE [facility] Information #: 1 Payer: [employer] [place] [employer] Payer Identifier: NA Member Number: [id number] Group Number: [id number] Subscriber Identifier: NA Relationship to Subscriber: self Coverage Type: NA Coverage Verification Date: Telecom: MARTINA Address:
--- OUTSIDE RECORDS SUMMARY | 2024-12-20 23:59 | XMS_ITS | Continuity of Care Document ---
Author Organization [facility] Address [address] [place] [address]- Care Team Providers Care Infection Control Specialist Name Role Phone Tommie PALACIOS, Citlalli Lobo Primary Care Physician [place] [facility] [place] 12/[place]/24 [facility] [address] [place] [id number] Attending Physician: AdmEsthela gonzalez Admitting Physician: AdmtrEsthela Referring Physician: Admtr, [id number] Encounter Type: Triage Allergies, Adverse Reactions, Alerts Substance Criticality Severity Reaction Reaction Severity Status furosemide High criticality Moderate Ac tive azithromycin Rash Active Levaquin rash Active levoFLOXacin Rash Active sulfADIAZINE Rash Active zinc sulfate ophthalmic Rash Active Immunizations Given and Recorded Vaccine Date Status Refusal Reason SARS-CoV-2 (COVID-19) mRNA BNT-162b2 vac 04/28/21 Recorded tetanus/diphtheria/pertussis, acel(Tdap) 1 10/14/20 Given SARS-CoV-2 (COVID-19) Ad26 vaccine 06/25/20 Record ed influenza virus vaccine, inactivated 2 04/08/11 Gi loly influenza virus vaccine, inactivated 03/05/10 Give n pneumococcal 23-valent vaccine 03/06/10 Given 1Result Comment: [facility] [id number] 2Admin Note: [facility] info given to patient Medications Compression Stockings [...] 10:23:00 AM EST, Route to Pharmacy Electronically, [facility]/pharmacy #[id number], Partial fill upon patient request if [...] Refills, Maintenance, 07/26/23 12:15:00 PM EDT, Aerosol, [facility]/pharmacy #[id number], 156, cm, 02/22/23 9:16:00 EST, Height, 114, kg, 12/09/22 14:11:00 EDT, Dry Weight Start Date: 07/26/23 Stop Date: 07/20/24 Status: Ordered Medication Dispense Status: Completed Quantity: 18.0 Unit: g Total Allowed Fills: 12 Fills Dispensed: 0 zolpidem 5 mg oral tablet 1 tablet = 5 mg, By Mouth, Daily at bedtime, # 30 tablet, 3 Refills, Maintenance, 07/26/23 12:16:00 PM EDT, [facility]/pharmacy #[id number], Partial fill upon patient request if [...] Active Social History Social History Type Response Sexual Sexually involved in last 6 months: Yes. Smoking Status Former smoker, quit more than 30 days ago; Type: Cigarettes; Tobacco use times per day: 1pack/day; Started at age: 16; Stopped at age: 49; entered on: 12/09/21 Sex Sex Representation Female (finding) Patient Care team information Care Team Personnel Name: Gina Savage RN Position: [facility] Nurse Member Role: Primary Care Nurse Name: Sage Crisostomo RN Position: [facility] Mathieu RN Member Role: Primary Care Nurse Name: Nash Wick RN Position: [facility] RN Member Role: Primary Care Nurse Name: Citlalli Reilly MD Position: Reference Physician Member Role: PCP Address: [address] [place] [address]- Telecom: Name: Cande Scott RN Position: [facility] RN W/OE and Tasks Member Role: Primary Care Nurse Name: Emily Virk RN Position: [facility] RN Member Role: Primary Care Nurse Name: Christie Franco RN Position: [facility] RN Member Role: Primary Care Nurse Care Team Related Persons Name: DASH LIU Insurance Providers Guarantor name: PRASANNA [employer] Plan Information #: [address] [facility] Payer Identifier: NA Member Number: [id number] Group Number: [id number] Subscriber Identifier: NA Relationship to Subscriber: self Coverage Type: NA Coverage Verification Date: NA Telecom: Address:
--- NOTE | 2024-12-21 15:35 | A.OFFPC_ITS ---
Vital Signs 12/21/24 15:47 Height 5 ft Weight 224 lb BMI 43.7 BP 108/62 Blood Pressure Location Rt brachial Position Sitting Respiration 14 Pulse 98 Pulse Source Pulse Oximeter Pulse Oximetry (%) 98 Oxygen Delivery Method Room Air Intake Visit Reasons: Discharged date: November [facility] Intake Note: Hospital follow up Toy Designer Required: No Allergies azithromycin Allergy (Unknown, Verified 12/21/24 15:39) Rash furosemide Allergy (Unknown, Verified 12/21/24 15:39) Unknown levofloxacin (From Levaquin) Allergy (Unknown, Verified 12/21/24 15:39) Rash levothyroxine Allergy (Unknown, Verified 12/21/24 15:39) Rash sulfadiazine Allergy (Unknown, Verified 12/21/24 15:39) Rash zinc sulfate Allergy (Unknown, Uncoded 12/21/24 15:39) rash Tobacco use date assessed: 12/21/24 Fall risk assessment: No Falls in past year Last assessed Fall Risk: 12/21/24 Dental Screening Dental Screen Date: 08/14/24 HPI HPI Comments History of Present Illness Details The patient is a 64 year old female with pmhx obesity, MEHDI, GERD, hyperglycemia, asthma, insomnia presenting for hospital follow up The patient was hospitalized from November 02 to November 17 at [facility] and was in rehab until December 03. She underwent planned incisional hernia repair with mesh placement (incarcerated hernia) on November 02. Post procedure course was complicated by large bloody emesis and maroon colored stool. CT scan with cirrhotic liver Intubated-EGD november 07 performed showing portal hypertensive, non bleeding duodenal ulcers, duodenal bleeding ulcer that was hemoclipped Also with new onset atrial fibrillation-amiodarone then metoprolol. No AC in setting of anemia. EKG abn. NSTEMI II-recommend outpatient stress with imaging Recommend sleep testing for reevaluation of MEHDI. Her cpap is not operating properly Received 3 units prbc Feeling okay. Still tired. CV: Dyspnea 2022. Had cardiology work up, Dr Huitron at [facility]. No chest pain. No increased LE edema Pulm: Asthma, MEHDI. On symbicort, ventolin. Dyspnea: Stable. Bad over summer, fall 2022. Had flu A, asthma exacerbation. Nuclear stress normal. Saw cardiology,referred to pulm MSK: Right shoulder pain. s/p arthroscopy. BH: Insomnia is stable on zolpidem. s/p hysterectomy Did cologuard ROS see HPI PHYSICAL EXAM: GENERAL: Alert and oriented x 3. NAD EYES: EOMI. Anicteric. HENT: Moist mucous membranes. No scleral icterus. No cervical lymphadenopathy. LUNGS: Clear to auscultation bilaterally. CARDIOVASCULAR: Regular rate and rhythm. systolic murmur ABDOMEN: Soft, non-tender to palpation, +bs EXTREMITIES: No edema. Non-tender. SKIN: No rashes or lesions. Warm. NEUROLOGIC: No focal neurological deficits. CN II-XII grossly intact PSYCHIATRIC: Cooperative. Appropriate mood and affect [facility] Medical History (Updated 12/25/24 @ 16:33 by Citlalli Reilly MD) Hyperglycemia GERD (gastroesophageal reflux disease) Cataract, right eye Surgical History (Updated 09/14/24 @ 13:48 by Divya Walters MD) History of partial colectomy History of hysterectomy H/O total knee replacement Family History Mother Lymphoma Sister Stroke Cancer Social History (Updated 09/14/24 @ 13:38 by Foreign Diallo) Household Members: Spouse Housing: House Alcohol intake: current Patient Tobacco Use Status: Former Tobacco user Tobacco use type: Cigarette Cigarette Packs Per Day: 11 Years Smoked: 33 e-Cigarette/Vaping Use: Never Used Second Hand Smoke Exposure: No service: No Current occupational status: employed and retired Current occupational exposures/hazards: No Cognitive needs: No Hearing needs: No Vision needs: Yes (glasses) Questionnaire Thrive Questionnaire Date Thrive assessed: 05/26/24 I am a: Patient What is your living situation today?: I have a steady place to live Within the past 12 months, did the food you bought not last and you didn't have the money to get more?: Never true Within the past 12 months, did you worry whether your food would run out before you got money to buy more?: Never true Do you have trouble paying for medicines?: No Do you have trouble getting transportation to medical appointments?: No Do you have trouble paying your heating and electricity bill?: No Do you have trouble taking care of your child, family member or friend?: No Do you have trouble with day-to-day activities such as bathing, preparing meals, shopping, managing finances, etc.?: No Are you currently unemployed and looking for a job?: No Are you interested in more education?: No Please select the resources that you would like help with: None Currently or been in a relationship where the following occur: No concerns reported THRIVE Score: 0 RAMBO-7 AMB Questionnaire RAMBO-7 Date RAMBO - 7 assessed: 05/26/24 Source: Developed by Drs. Hira Long, Mary Wolff, Fabian Robert and colleagues, with an educational brittney from [employer]. Physical exam (Primary Care) Vital Signs: Last Vital Signs Pulse 98 12/21/24 15:47 Resp 14 12/21/24 15:47 BP 108/62 12/21/24 15:47 Pulse Ox 98 12/21/24 15:47 Oxygen Delivery Method Room Air 12/21/24 15:47 BMI result Body Mass Index 43.7 Tobacco/Smoking Status: Tobacco use Status Tobacco use date assessed 12/21/24 12/21/24 15:50 Patient Tobacco Use Status Former Tobacco user 12/21/24 15:37 Tobacco use type Cigarette 12/21/24 15:37 e-Cigarette/Vaping Use Never Used 12/21/24 15:37 Thrive Assessment: Date of Thrive Assessment Date Thrive assessed 05/26/24 12/21/24 15:37 Currently or been in a relationship where the following occur: No concerns reported Coding Level of Care Code TCM High MDM <= 14 days Diagnoses Hospital discharge follow-up Z09 NSTEMI (non-ST elevated myocardial infarction) I21.4 Paroxysmal atrial fibrillation I48.0 Atrial fibrillation type: paroxysmal Peripheral vascular disease I73.9 Low platelet count D69.6 Assessment & Plan Assessment & Plan (1) Hospital discharge follow-up: Code(s): Z09 - Encounter for follow-up examination after completed treatment for conditions other than malignant neoplasm Category: Medical (2) NSTEMI (non-ST elevated myocardial infarction): Code(s): I21.4 - Non-ST elevation (NSTEMI) myocardial infarction Category: Medical (3) Atrial fibrillation: Code(s): I48.91 - Unspecified atrial fibrillation Category: Medical Qualifiers: Atrial fibrillation type: paroxysmal Qualified Code(s): I48.0 - Paroxysmal atrial fibrillation (4) Peripheral vascular disease: Code(s): I73.9 - Peripheral vascular disease, unspecified Category: Medical (5) Low platelet count: Code(s): D69.6 - Thrombocytopenia, unspecified Category: Medical Plan 64 year old female for hospital follow up Complicated hospital course-reviewed Referral to liver GI. Referral to cardiology Referral sleep medicine. Recheck labs Orders: Orders TSH reflex Free T4 12/22/24 E03.9 - Hypothyroidism, unspecified Complete Blood Count Auto Diff 12/22/24 I25.10 - Atherosclerotic heart disease of [place] coronary artery without angina pectoris, Z09 - Encounter for follow-up examination after completed treatment for conditions other than malignant neoplasm Comprehensive Met. Panel 12/22/24 I25.10 - Atherosclerotic heart disease of [place] coronary artery without angina pectoris, Z09 - Encounter for follow-up examination after completed treatment for conditions other than malignant neoplasm Referrals Sleep Medicine Referral G47.33 - Obstructive sleep apnea (adult) (pediatric) Gastroenterology Referral K74.60 - Unspecified cirrhosis of liver, K76.9 - Liver disease, unspecified Cardiology Referral I21.4 - Non-ST elevation (NSTEMI) myocardial infarction, I25.10 - Atherosclerotic heart disease of [place] coronary artery without angina pectoris, I48.91 - Unspecified atrial fibrillation Medications: New metoprolol succinate ER 50 mg PO DAILY 90 tabs 3RF spironolactone 25 mg PO DAILY 90 tabs 3RF midodrine do not give last dose of day after 6PM or within 4 hrs of bedtime 5 mg PO TID 270 tabs 3RF docusate sodium 100 mg PO DAILY 90 caps 3RF pantoprazole 40 mg PO DAILY 90 tabs 3RF potassium chloride 20 mEq (15 mL) PO DAILY 1,200 mL 3RF
[2024-12-21 15:47] VITALS: BP 108/62; PULSE 98; RESP 14; O2SAT 98; BMI 43.7
--- OUTSIDE RECORDS SUMMARY | 2024-12-21 16:21 | XMS_ITS | Encounter Summary ---
Author Organization [facility] Address [address] [place] [address] Care Team Providers Care Hide Cleaner Name Role Phone Citlalli Reilly MD Primary Care Provider [phone] Encounter Details Date Type Department Care Team (Late st Contact Info) Description 12/03/2024 Lab Requisition [facility] - Main Lab [address] [place] [address] [place] [address] Breann Noland PA [address] [place] [phone] Encounter for other general examination Social History Tobacco Use Types Packs/Day Years Used Date Smoking Tobacco: Former Smokeless Tobacco: Never Alcohol Use Standard Drinks/Week Comments Yes 0 (1 standard drink = 0.6 oz pur e alcohol) Comments Unknown Sex and Gender Information Value Date Recorded Sex Assigned at Not on file Legal Sex Female 8:38 AM EST Gender Identity Not on file Sexual Orientation Not on file documented as of this encounter Plan of Treatment Not on file documented as of this encounter Procedures Procedure Name Priority Date/Time Associated Diagnosis Comments COMPLETE BLOOD COUNT Routine 12/03/2024 6:30 AM EDT Encounter for other general examination documented in this encounter Results * (ABNORMAL) Complete blood count (12/03/2024 6:30 AM EDT) [facility] Signature WBC 6.7 4.8 - 10.8 K/[facility] LAB HEMETOLOGY METHOD 12/03/2024 8:08 AM EDT [facility] RBC 2.70(L) 3.80 - 4.80 /[facility] LAB HEMETOLOGY METHOD 12/03/2024 8:08 AM [facility] Hemoglobin 7.7(L) 11.5 - 16.0 g/dL LAB HEMETOLOGY METHOD 12/03/2024 8:08 AM [facility] LAB Hematocrit 24.6(L) 35.0 - 47.0 % LAB HEMETOLOGY METHOD 12/03/2024 8:08 AM [facility] MCV 90.8 79.0 - 98.0 FL LAB HEMETOLOGY METHOD 12/03/2024 8:08 AM [facility] LAB MCH 28.4 27.0 - 32.0 pcg LAB HEMETOLOGY METHOD 12/03/2024 8:08 AM [facility] LAB MCHC 31.3(L) 32.0 - 37.0 g/dL LAB HEMETOLOGY METHOD 12/03/2024 8:08 AM [facility] LAB RDW 16.4(H) 11.0 - 15.0 % LAB HEMETOLOGY METHOD 12/03/2024 8:08 AM [facility] Platelets 132 130 - 400 K/mcL LAB HEMETOLOGY METHOD 12/03/2024 8:08 AM [facility] MPV 10.0 7.0 - 11.0 FL LAB HEMETOLOGY METHOD 12/03/2024 8:08 AM [facility] LAB NRBC 0.0 <1.0 % LAB HEMETOLOGY METHOD 12/03/2024 8:08 AM [facility] LAB NRBC Absolute 0.00 <0.10 K/mcL LAB HEMETOLOGY METHOD 12/03/2024 8:08 AM [facility] Blood Venous blood specimen / Unknown Venipuncture / Unknown 12/03/2024 6:30 AM EDT 12/03/2024 7:46 AM EDT us Breann GALLEGOS LAB BLOOD ORDERABLES Final Resul t [facility] HOSP[facility] LAB [address] [place] [address], documented in this encounter Visit Diagnoses Diagnosis Encounter for other general examination documented in this encounter Care Teams Hide Cleaner Relationship Specialty Start Date End Date Citlalli Reilly MD [address] [place] [address] PCP - General Internal Medicine 11/26/24 documented as of this encounter
--- OUTSIDE RECORDS SUMMARY | 2024-12-21 16:21 | XMS_ITS | Encounter Summary ---
Author Organization [facility] Address [address] [place] [address] Care Team Providers Care Manager Generation Name Role Phone Citlalli Reilly MD Primary Care Provider [phone] Encounter Details Date Type Department Care Team (Late st Contact Info) Description 11/29/2024 Lab Requisition [facility] - Main Lab [address] [facility] [place] [address] Julien Luevano PA [address] [address] Encounter for other general examination Social History [...] Procedure Name Priority Date/Time Associated Diagnosis Comments BASIC METABOLIC PANEL Routine 11/29/2024 8:00 AM EDT Encounter for other general examination documented in this encounter Results * (ABNORMAL) Basic metabolic panel (11/29/2024 8:00 AM EDT) Sodium 136 133 - 145 mmol/L LAB CHEMISTRY METHOD 11/29/2024 12:57 PM EDT [facility] Potassium 3.4(L) 3.5 - 5.5 mmol/L LAB CHEMISTRY METHOD 11/29/2024 12:57 PM [facility] Chloride 96 96 - 110 mmol/L LAB CHEMISTRY METHOD 11/29/2024 12:57 PM [facility] CO2 32 21 - 32 mmol/L LAB CHEMISTRY METHOD 11/29/2024 12:57 PM [facility] Anion Gap 8 3 - 11 LAB CHEMISTRY METHOD 11/29/2024 12:57 PM [facility] Glucose 111(H) 70 - 100 mg/dL LAB CHEMISTRY METHOD 11/29/2024 12:57 PM [facility] BUN 20 5 - 25 mg/dL LAB CHEMISTRY METHOD 11/29/2024 12:57 PM [facility] Creatinine 1.03 0.50 - 1.10 mg/dL LAB CHEMISTRY METHOD 11/29/2024 12:57 PM [facility] eGFR 60 >=60 mL/min/1. 73m2 LAB CHEMISTRY METHOD 11/29/2024 12:57 PM [facility] Comment:Calculation based on the Chronic Kidney Disease Epidemiology Collaboration (CKD-EPI) equation refit without adjustment for race. BUN/Creatinine Ratio 19.4 LAB CHEMISTRY METHOD 11/29/2024 12:57 PM [facility] Calcium 8.5 8.5 - 10.5 mg/dL LAB CHEMISTRY METHOD 11/29/2024 12:57 PM [facility] Blood Venous blood specimen / Unknown Venipuncture / Unknown 11/29/2024 8:00 AM EDT 11/29/2024 11:28 AM EDT us Julien GALLEGOS LAB BLOOD ORDERABLES Final R esult [facility] [address] [place] [address], documented in this encounter Visit Diagnoses Diagnosis Encounter for other general examination documented in this encounter Care Teams Manager Generation Relationship Specialty Start Date End Date Citlalli Reilly MD [address] [place] [address] PCP - General Internal Medicine 11/26/24 documented as of this encounter
--- OUTSIDE RECORDS SUMMARY | 2024-12-21 16:21 | XMS_ITS | Encounter Summary ---
Author Organization [facility] Address [address] [place] [address] Care Team Providers Care Atmospheric Drier Tender Name Role Phone Citlalli Reilly MD Primary Care Provider [phone] Encounter Details Date Type Department Care Team (Late st Contact Info) Description 11/26/2024 Lab Requisition [facility] - Main Lab [address] [facility] [place] [address] Breann Noland PA [address] [place] [address] Encounter for other general examination Social History [...] Procedure Name Priority Date/Time Associated Diagnosis Comments COMPREHENSIVE METABOLIC PANEL Routine 11/26/2024 7:14 AM EDT Encounter for other general examination documented in this encounter Results * (ABNORMAL) Comprehensive metabolic panel (11/26/2024 7:14 AM EDT) Sodium 138 133 - 145 mmol/L LAB CHEMISTRY METHOD 11/26/2024 11:34 AM EDT [facility] LAB Potassium 3.0(L) 3.5 - 5.5 mmol/L LAB CHEMISTRY METHOD 11/26/2024 11:34 AM [facility] LAB Chloride 97 96 - 110 mmol/L LAB CHEMISTRY METHOD 11/26/2024 11:34 AM [facility] LAB CO2 33(H) 21 - 32 mmol/L LAB CHEMISTRY METHOD 11/26/2024 11:34 AM [facility] LAB Anion Gap 8 3 - 11 LAB CHEMISTRY METHOD 11/26/2024 11:34 AM [facility] LAB Glucose 93 70 - 100 mg/dL LAB CHEMISTRY METHOD 11/26/2024 11:34 AM [facility] LAB BUN 19 5 - 25 mg/dL LAB CHEMISTRY METHOD 11/26/2024 11:34 AM [facility] LAB Creatinine 0.83 0.50 - 1.10 mg/dL LAB CHEMISTRY METHOD 11/26/2024 11:34 AM [facility] LAB eGFR 78 >=60 mL/min/1. 73m2 LAB CHEMISTRY METHOD 11/26/2024 11:34 AM [facility] LAB Comment:Calculation based on the Chronic Kidney Disease Epidemiology Collaboration (CKD-EPI) equation refit without adjustment for race. BUN/Creatinine Ratio 22.9 LAB CHEMISTRY METHOD 11/26/2024 11:34 AM [facility] LAB Calcium 8.0(L) 8.5 - 10.5 mg/dL LAB CHEMISTRY METHOD 11/26/2024 11:34 AM [facility] LAB AST (SGOT) 41 10 - 42 unit/L LAB CHEMISTRY METHOD 11/26/2024 11:34 AM [facility] LAB ALT (SGPT) 28 10 - 60 unit/L LAB CHEMISTRY METHOD 11/26/2024 11:34 AM [facility] LAB Alkaline Phosphatase 104 42 - 121 unit/L LAB CHEMISTRY METHOD 11/26/2024 11:34 AM [facility] LAB Total Protein 4.8(L) 6.0 - 8.0 g/dL LAB CHEMISTRY METHOD 11/26/2024 11:34 AM EDT [facility] LAB Albumin 2.3(L) 3.2 - 5.0 g/dL LAB CHEMISTRY METHOD 11/26/2024 11:34 AM EDT [facility] LAB Total Bilirubin 3.0(H) 0.0 - 1.4 mg/dL LAB CHEMISTRY METHOD 11/26/2024 11:34 AM EDT [facility] LAB Blood Venous blood specimen / Unknown 11/26/2024 7:14 AM EDT 11/26/2024 10:44 AM EDT us Breann GALLEGOS LAB BLOOD ORDERABLES Final Resul t [facility] [address] [place] [address], documented in this encounter Visit Diagnoses Diagnosis Encounter for other general examination documented in this encounter Care Teams Atmospheric Drier Tender Relationship Specialty Start Date End Date Citlalli Reilly MD [address] [place] [address] PCP - General Internal Medicine 11/26/24 documented as of this encounter
--- OUTSIDE RECORDS SUMMARY | 2024-12-21 16:21 | XMS_ITS | Encounter Summary ---
Author Organization [facility] Address [address] [place] [address] Care Team Providers Care Cad Application Support Specialist Name Role Phone Citlalli Reilly MD Primary Care Provider [phone] Encounter Details Date Type Department Care Team (Late st Contact Info) Description 12/02/2024 Lab Requisition [facility] - Main Lab [address] [facility] [place] [address] Breann Noland PA [address] [place] [address] Encounter for other general examination Social History [...] Associated Diagnosis Comments COMPLETE BLOOD COUNT Routine 12/02/2024 5:00 AM EDT Encounter for other general examination COMPREHENSIVE METABOLIC PANEL Routine 12/02/2024 5:00 AM EDT Encounter for other general examination documented in this encounter Results * (ABNORMAL) Comprehensive metabolic panel (12/02/2024 5:00 AM EDT) Sodium 136 133 - 145 mmol/L LAB CHEMISTRY METHOD 12/02/2024 10:41 AM EDT [facility] Potassium 3.6 3.5 - 5.5 mmol/L LAB CHEMISTRY METHOD 12/02/2024 10:41 AM [facility] LAB Chloride 100 96 - 110 mmol/L LAB CHEMISTRY METHOD 12/02/2024 10:41 AM [facility] LAB CO2 33(H) 21 - 32 mmol/L LAB CHEMISTRY METHOD 12/02/2024 10:41 AM [facility] LAB Anion Gap 3 3 - 11 LAB CHEMISTRY METHOD 12/02/2024 10:41 AM [facility] LAB Glucose 86 70 - 100 mg/dL LAB CHEMISTRY METHOD 12/02/2024 10:41 AM [facility] LAB BUN 18 5 - 25 mg/dL LAB CHEMISTRY METHOD 12/02/2024 10:41 AM [facility] LAB Creatinine 0.99 0.50 - 1.10 mg/dL LAB CHEMISTRY METHOD 12/02/2024 10:41 AM [facility] LAB eGFR 63 >=60 mL/min/1. 73m2 LAB CHEMISTRY METHOD 12/02/2024 10:41 AM [facility] LAB Comment:Calculation based on the Chronic Kidney Disease Epidemiology Collaboration (CKD-EPI) equation refit without adjustment for race. BUN/Creatinine Ratio 18.2 LAB CHEMISTRY METHOD 12/02/2024 10:41 AM [facility] LAB Calcium 8.5 8.5 - 10.5 mg/dL LAB CHEMISTRY METHOD 12/02/2024 10:41 AM [facility] LAB AST (SGOT) 44(H) 10 - 42 unit/L LAB CHEMISTRY METHOD 12/02/2024 10:41 AM [facility] LAB ALT (SGPT) 32 10 - 60 unit/L LAB CHEMISTRY METHOD 12/02/2024 10:41 AM [facility] LAB Alkaline Phosphatase 97 42 - 121 unit/L LAB CHEMISTRY METHOD 12/02/2024 10:41 AM [facility] LAB Total Protein 4.5(L) 6.0 - 8.0 g/dL LAB CHEMISTRY METHOD 12/02/2024 10:41 AM EDT [facility] LAB Albumin 2.3(L) 3.2 - 5.0 g/dL LAB CHEMISTRY METHOD 12/02/2024 10:41 AM EDT [facility] LAB Total Bilirubin 2.4(H) 0.0 - 1.4 mg/dL LAB CHEMISTRY METHOD 12/02/2024 10:41 AM EDT [facility] LAB Blood Venous blood specimen / Unknown Venipuncture / Unknown 12/02/2024 5:00 AM EDT 12/02/2024 9:15 AM EDT us Breann GALLEGOS LAB BLOOD ORDERABLES Final Resul t [facility] LAB [address] [place] [address], * (ABNORMAL) Complete blood count (12/02/2024 5:00 AM EDT) WBC 6.4 4.8 - 10.8 K/mcL LAB HEMETOLOGY METHOD 12/02/2024 10:11 AM [facility] LAB RBC 2.60(L) 3.80 - 4.80 M/mcL LAB HEMETOLOGY METHOD 12/02/2024 10:11 AM [facility] LAB Hemoglobin 7.3(L) 11.5 - 16.0 g/dL LAB HEMETOLOGY METHOD 12/02/2024 10:11 AM [facility] LAB Hematocrit 23.6(L) 35.0 - 47.0 % LAB HEMETOLOGY METHOD 12/02/2024 10:11 AM [facility] LAB MCV 91.5 79.0 - 98.0 FL LAB HEMETOLOGY METHOD 12/02/2024 10:11 AM T [facility] LAB MCH 28.3 27.0 - 32.0 pcg LAB HEMETOLOGY METHOD 12/02/2024 10:11 AM EDT [facility] LAB MCHC 30.9(L) 32.0 - 37.0 g/dL LAB HEMETOLOGY METHOD 12/02/2024 10:11 AM EDT [facility] LAB RDW 16.4(H) 11.0 - 15.0 % LAB HEMETOLOGY METHOD 12/02/2024 10:11 AM EDT [facility] LAB Platelets 115(L) 130 - 400 K/mcL LAB HEMETOLOGY METHOD 12/02/2024 10:11 AM EDT [facility] LAB MPV 9.8 7.0 - 11.0 FL LAB HEMETOLOGY METHOD 12/02/2024 10:11 AM EDT [facility] LAB NRBC 0.0 <1.0 % LAB HEMETOLOGY METHOD 12/02/2024 10:11 AM EDT [facility] LAB NRBC Absolute 0.00 <0.10 K/mcL LAB HEMETOLOGY METHOD 12/02/2024 10:11 AM T [facility] LAB Blood Venous blood specimen / Unknown Venipuncture / Unknown 12/02/2024 5:00 AM EDT 12/02/2024 9:15 AM EDT us Breann GALLEGOS LAB BLOOD ORDERABLES Final Resul t [facility] [address] [place] [address], documented in this encounter Visit Diagnoses Diagnosis Encounter for other general examination documented in this encounter Care Teams Cad Application Support Specialist Relationship Specialty Start Date End Date Citlalli Reilly MD [address] [place] [phone] PCP - General Internal Medicine 11/26/24 documented as of this encounter
--- OUTSIDE RECORDS SUMMARY | 2024-12-21 16:21 | XMS_ITS | Encounter Summary ---
Author Organization [facility] Address [address] [place] [address] Care Team Providers Care Certified Welding Inspector Name Role Phone Citlalli Reilly MD Primary Care Provider [phone] Encounter Details Date Type Department Care Team (Late st Contact Info) Description 11/27/2024 Lab Requisition [facility] - Main Lab [address] [facility] [place] [address] Julien Luevano PA [address] [address] Encounter for other general examination [...] Associated Diagnosis Comments COMPLETE BLOOD COUNT Routine 11/27/2024 5:36 AM EDT Encounter for other general examination BASIC METABOLIC PANEL Routine 11/27/2024 5:36 AM EDT Encounter for other general examination documented in this encounter Results * (ABNORMAL) Basic metabolic panel (11/27/2024 5:36 AM EDT) Sodium 137 133 - 145 mmol/L LAB CHEMISTRY METHOD 11/27/2024 11:58 AM EDT [facility] Potassium 3.3(L) 3.5 - 5.5 mmol/L LAB CHEMISTRY METHOD 11/27/2024 11:58 AM [facility] Chloride 98 96 - 110 mmol/L LAB CHEMISTRY METHOD 11/27/2024 11:58 AM [facility] LAB CO2 32 21 - 32 mmol/L LAB CHEMISTRY METHOD 11/27/2024 11:58 AM [facility] LAB Anion Gap 7 3 - 11 LAB CHEMISTRY METHOD 11/27/2024 11:58 AM [facility] Glucose 110(H) 70 - 100 mg/dL LAB CHEMISTRY METHOD 11/27/2024 11:58 AM [facility] BUN 19 5 - 25 mg/dL LAB CHEMISTRY METHOD 11/27/2024 11:58 AM [facility] Creatinine 0.99 0.50 - 1.10 mg/dL LAB CHEMISTRY METHOD 11/27/2024 11:58 AM [facility] LAB eGFR 63 >=60 mL/min/1. 73m2 LAB CHEMISTRY METHOD 11/27/2024 11:58 AM [facility] LAB Comment:Calculation based on the Chronic Kidney Disease Epidemiology Collaboration (CKD-EPI) equation refit without adjustment for race. BUN/Creatinine Ratio 19.2 LAB CHEMISTRY METHOD 11/27/2024 11:58 AM [facility] Calcium 8.0(L) 8.5 - 10.5 mg/dL LAB CHEMISTRY METHOD 11/27/2024 11:58 AM [facility] LAB Blood Venous blood specimen / Unknown Venipuncture / Unknown 11/27/2024 5:36 AM EDT 11/27/2024 9:46 AM EDT us Julien GALLEGOS LAB BLOOD ORDERABLES Final R esult [facility] [address] [place] [address], * (ABNORMAL) Complete blood count (11/27/2024 5:36 AM EDT) [facility] WBC 7.0 4.8 - 10.8 K/mcL LAB HEMETOLOGY METHOD 11/27/2024 11:22 AM [facility] RBC 2.90(L) 3.80 - 4.80 M/mcL LAB HEMETOLOGY METHOD 11/27/2024 11:22 AM [facility] Hemoglobin 8.6(L) 11.5 - 16.0 g/dL LAB HEMETOLOGY METHOD 11/27/2024 11:22 AM [facility] LAB Hematocrit 26.9(L) 35.0 - 47.0 % LAB HEMETOLOGY METHOD 11/27/2024 11:22 AM [facility] LAB MCV 93.1 79.0 - 98.0 FL LAB HEMETOLOGY METHOD 11/27/2024 11:22 AM [facility] LAB MCH 29.8 27.0 - 32.0 pcg LAB HEMETOLOGY METHOD 11/27/2024 11:22 AM [facility] LAB MCHC 32.0 32.0 - 37.0 g/dL LAB HEMETOLOGY METHOD 11/27/2024 11:22 AM [facility] LAB RDW 16.5(H) 11.0 - 15.0 % LAB HEMETOLOGY METHOD 11/27/2024 11:22 AM [facility] LAB Platelets 130 130 - 400 K/mcL LAB HEMETOLOGY METHOD 11/27/2024 11:22 AM [facility] LAB MPV 9.9 7.0 - 11.0 FL LAB HEMETOLOGY METHOD 11/27/2024 11:22 AM [facility] LAB NRBC 0.0 <1.0 % LAB HEMETOLOGY METHOD 11/27/2024 11:22 AM EDT [facility] LAB NRBC Absolute 0.00 <0.10 K/mcL LAB HEMETOLOGY METHOD 11/27/2024 11:22 AM EDT [facility] LAB Blood Venous blood specimen / Unknown Venipuncture / Unknown 11/27/2024 5:36 AM EDT 11/27/2024 9:46 AM EDT us Julien GALLEGOS LAB BLOOD ORDERABLES Final R esult [facility] [address] [place] [address], documented in this encounter Visit Diagnoses Diagnosis Encounter for other general examination documented in this encounter Care Teams Certified Welding Inspector Relationship Specialty Start Date End Date Citlalli Reilly MD [address] [place] [phone] PCP - General Internal Medicine 11/26/24 documented as of this encounter
--- OUTSIDE RECORDS SUMMARY | 2024-12-21 16:21 | XMS_ITS | Encounter Summary ---
Author Organization [facility] Address [address] [place] [address] Care Team Providers Care Manager Department Name Role Phone Citlalli Reilly MD Primary Care Provider [phone] Encounter Details Date Type Department Care Team (Late st Contact Info) Description 11/23/2024 Lab Requisition [facility] - Main Lab [address] [facility] [place] [address] Julien Luevano PA [address] [address] Encounter for other general examination [...] Associated Diagnosis Comments COMPLETE BLOOD COUNT Routine 11/23/2024 7:50 AM EDT Encounter for other general examination COMPREHENSIVE METABOLIC PANEL Routine 11/23/2024 7:50 AM EDT Encounter for other general examination documented in this encounter Results * (ABNORMAL) Complete blood count (11/23/2024 7:50 AM EDT) WBC 8.9 4.8 - 10.8 K/[facility] LAB HEMETOLOGY METHOD 11/23/2024 11:24 AM [facility] LAB RBC 3.00(L) 3.80 - 4.80 M/mcL LAB HEMETOLOGY METHOD 11/23/2024 11:24 AM [facility] LAB Hemoglobin 8.9(L) 11.5 - 16.0 g/dL LAB HEMETOLOGY METHOD 11/23/2024 11:24 AM [facility] LAB Hematocrit 28.3(L) 35.0 - 47.0 % LAB HEMETOLOGY METHOD 11/23/2024 11:24 AM [facility] LAB MCV 93.7 79.0 - 98.0 FL LAB HEMETOLOGY METHOD 11/23/2024 11:24 AM [facility] LAB MCH 29.5 27.0 - 32.0 pcg LAB HEMETOLOGY METHOD 11/23/2024 11:24 AM [facility] LAB MCHC 31.4(L) 32.0 - 37.0 g/dL LAB HEMETOLOGY METHOD 11/23/2024 11:24 AM [facility] LAB RDW 16.8(H) 11.0 - 15.0 % LAB HEMETOLOGY METHOD 11/23/2024 11:24 AM [facility] LAB Platelets 136 130 - 400 K/mcL LAB HEMETOLOGY METHOD 11/23/2024 11:24 AM [facility] LAB MPV 10.5 7.0 - 11.0 FL LAB HEMETOLOGY METHOD 11/23/2024 11:24 AM [facility] LAB NRBC 0.0 <1.0 % LAB HEMETOLOGY METHOD 11/23/2024 11:24 AM [facility] LAB NRBC Absolute 0.00 <0.10 K/mcL LAB HEMETOLOGY METHOD 11/23/2024 11:24 AM [facility] LAB Blood Venous blood specimen / Unknown Venipuncture / Unknown 11/23/2024 7:50 AM EDT 11/23/2024 10:45 AM EDT us Julien GALLEGOS LAB BLOOD ORDERABLES Final R esult [facility] [address] [place] [address], [place] [phone] * (ABNORMAL) Comprehensive metabolic panel (11/23/2024 7:50 AM EDT) Pathologist [facility] Sodium 134 133 - 145 mmol/L LAB CHEMISTRY METHOD 11/23/2024 12:01 PM [facility] LAB Potassium 4.0 3.5 - 5.5 mmol/L LAB CHEMISTRY METHOD 11/23/2024 12:01 PM [facility] Chloride 102 96 - 110 mmol/L LAB CHEMISTRY METHOD 11/23/2024 12:01 PM [facility] CO2 27 21 - 32 mmol/L LAB CHEMISTRY METHOD 11/23/2024 12:01 PM [facility] Anion Gap 5 3 - 11 LAB CHEMISTRY METHOD 11/23/2024 12:01 PM [facility] Glucose 85 70 - 100 mg/dL LAB CHEMISTRY METHOD 11/23/2024 12:01 PM [facility] BUN 19 5 - 25 mg/dL LAB CHEMISTRY METHOD 11/23/2024 12:01 PM [facility] Creatinine 0.78 0.50 - 1.10 mg/dL LAB CHEMISTRY METHOD 11/23/2024 12:01 PM [facility] LAB eGFR 84 >=60 mL/min/1. 73m2 LAB CHEMISTRY METHOD 11/23/2024 12:01 PM [facility] LAB Comment:Calculation based on the Chronic Kidney Disease Epidemiology Collaboration (CKD-EPI) equation refit without adjustment for race. BUN/Creatinine Ratio 24.4 LAB CHEMISTRY METHOD 11/23/2024 12:01 PM EDT [facility] Calcium 8.2(L) 8.5 - 10.5 mg/dL LAB CHEMISTRY METHOD 11/23/2024 12:01 PM [facility] AST (SGOT) 50(H) 10 - 42 unit/L LAB CHEMISTRY METHOD 11/23/2024 12:01 PM [facility] ALT (SGPT) 40 10 - 60 unit/L LAB CHEMISTRY METHOD 11/23/2024 12:01 PM [facility] Alkaline Phosphatase 98 42 - 121 unit/L LAB CHEMISTRY METHOD 11/23/2024 12:01 PM [facility] Total Protein 4.9(L) 6.0 - 8.0 g/dL LAB CHEMISTRY METHOD 11/23/2024 12:01 PM [facility] Albumin 2.3(L) 3.2 - 5.0 g/dL LAB CHEMISTRY METHOD 11/23/2024 12:01 PM [facility] Total Bilirubin 2.9(H) 0.0 - 1.4 mg/dL LAB CHEMISTRY METHOD 11/23/2024 12:01 PM [facility] Blood Venous blood specimen / Unknown Venipuncture / Unknown 11/23/2024 7:50 AM EDT 11/23/2024 10:45 AM EDT us Julien GALLEGOS LAB BLOOD ORDERABLES Final R esult [facility] [address] [place] [address], documented in this encounter Visit Diagnoses Diagnosis Encounter for other general examination documented in this encounter Care Teams Manager Department Relationship Specialty Start Date End Date Citlalli Reilly MD [address] [place] [address] PCP - General Internal Medicine 11/26/24 documented as of this encounter
--- OUTSIDE RECORDS SUMMARY | 2024-12-21 16:21 | XMS_ITS | Encounter Summary ---
Author Organization [facility] Address [address] [place] [address] Care Team Providers Care Laundry Machine Mechanic Name Role Phone Citlalli Reilly MD Primary Care Provider [phone] Encounter Details Date Type Department Care Team (Late st Contact Info) Description 11/18/2024 Lab Requisition [facility] - Main Lab [address] [facility] [place] [address] Breann Noland PA [address] [place] [phone] Encounter for other general examination Social History [...] Procedure Name Priority Date/Time Associated Diagnosis Comments CBC WITH AUTO DIFFERENTIAL Routine 11/18/2024 6:00 AM EDT Encounter for other general examination CBC AND DIFFERENTIAL Routine 11/18/2024 6:00 AM EDT Encounter for other general examination MAGNESIUM Routine 11/18/2024 6:00 AM EDT Encounter for other general examination COMPREHENSIVE METABOLIC PANEL Routine 11/18/2024 6:00 AM EDT Encounter for other general examination documented in this encounter Results * (ABNORMAL) CBC auto differential (11/18/2024 6:00 AM EDT) [facility] WBC 9.7 4.8 - 10.8 K/mcL LAB HEMETOLOGY METHOD 11/18/2024 9:19 AM [facility] RBC 3.10(L) 3.80 - 4.80 M/mcL LAB HEMETOLOGY METHOD 11/18/2024 9:19 AM [facility] Hemoglobin 9.2(L) 11.5 - 16.0 g/dL LAB HEMETOLOGY METHOD 11/18/2024 9:19 AM [facility] Hematocrit 29.7(L) 35.0 - 47.0 % LAB HEMETOLOGY METHOD 11/18/2024 9:19 AM [facility] MCV 96.7 79.0 - 98.0 FL LAB HEMETOLOGY METHOD 11/18/2024 9:19 AM [facility] MCH 30.0 27.0 - 32.0 pcg LAB HEMETOLOGY METHOD 11/18/2024 9:19 AM [facility] MCHC 31.0(L) 32.0 - 37.0 g/dL LAB HEMETOLOGY METHOD 11/18/2024 9:19 AM [facility] RDW 16.9(H) 11.0 - 15.0 % LAB HEMETOLOGY METHOD 11/18/2024 9:19 AM [facility] Platelets 143 130 - 400 K/mcL LAB HEMETOLOGY METHOD 11/18/2024 9:19 AM [facility] MPV 10.2 7.0 - 11.0 FL LAB HEMETOLOGY METHOD 11/18/2024 9:19 AM [facility] NRBC 0.0 <1.0 % LAB HEMETOLOGY METHOD 11/18/2024 9:19 AM [facility] NRBC Absolute 0.00 <0.10 K/mcL LAB HEMETOLOGY METHOD 11/18/2024 9:19 AM [facility] Neutrophils Relative 69.6 % LAB HEMETOLOGY METHOD 11/18/2024 9:19 AM [facility] Lymphocytes Relative 16.4 % LAB HEMETOLOGY METHOD 11/18/2024 9:19 AM [facility] Monocytes Relative 10.0 % LAB HEMETOLOGY METHOD 11/18/2024 9:19 AM [facility] Eosinophils Relative 2.6 % LAB HEMETOLOGY METHOD 11/18/2024 9:19 AM [facility] Basophils Relative 0.6 % LAB HEMETOLOGY METHOD 11/18/2024 9:19 AM [facility] Immature Granulocytes Relative 0.8 % LAB HEMETOLOGY METHOD 11/18/2024 9:19 AM [facility] Neutrophils Absolute 6.77 1.50 - 7.00 K/mcL LAB HEMETOLOGY METHOD 11/18/2024 9:19 AM [facility] Lymphocytes Absolute 1.60 1.00 - 5.00 K/mcL LAB HEMETOLOGY METHOD 11/18/2024 9:19 AM [facility] Monocytes Absolute 0.97 0.20 - 1.00 K/mcL LAB HEMETOLOGY METHOD 11/18/2024 9:19 AM [facility] Eosinophils Absolute 0.25 0.00 - 0.50 K/mcL LAB HEMETOLOGY METHOD 11/18/2024 9:19 AM [facility] Basophils Absolute 0.06 0.00 - 0.20 K/mcL LAB HEMETOLOGY METHOD 11/18/2024 9:19 AM [facility] Immature Granulocytes Absolute 0.08(H) 0.00 - 0.03 K/mcL LAB HEMETOLOGY METHOD 11/18/2024 9:19 AM EDT [facility] Blood Venous blood specimen / Unknown Venipuncture / Unknown 11/18/2024 6:00 AM EDT 11/18/2024 8:36 AM EDT Breann GALLEGOS LAB BLOOD ORDERABLES Final Resul t Performing Organization Address City/Va Hospital/ZIP Co de Phone Number [facility] [address] [place] [address], [place] [phone] * Magnesium (11/18/2024 6:00 AM EDT) Pathologist [facility] Magnesium 1.9 1.9 - 2.6 mg/dL LAB CHEMISTRY METHOD 11/18/2024 9:35 AM EDT [facility] Blood Venous blood specimen / Unknown Venipuncture / Unknown 11/18/2024 6:00 AM EDT 11/18/2024 8:36 AM EDT Breann GALLEGOS LAB BLOOD ORDERABLES Final Resul t Performing Organization Address [facility] Hospital/ZIP Co de Phone Number [facility] [address] [place] [address], [place] [phone] * (ABNORMAL) Comprehensive metabolic panel (11/18/2024 6:00 AM EDT) Sodium 137 133 - 145 mmol/L LAB CHEMISTRY METHOD 11/18/2024 9:35 AM EDT [facility] Potassium 3.8 3.5 - 5.5 mmol/L LAB CHEMISTRY METHOD 11/18/2024 9:35 AM EDT [facility] Chloride 104 96 - 110 mmol/L LAB CHEMISTRY METHOD 11/18/2024 9:35 AM EDT [facility] CO2 26 21 - 32 mmol/L LAB CHEMISTRY METHOD 11/18/2024 9:35 AM EDT [facility] Anion Gap 7 3 - 11 LAB CHEMISTRY METHOD 11/18/2024 9:35 AM [facility] Glucose 102(H) 70 - 100 mg/dL LAB CHEMISTRY METHOD 11/18/2024 9:35 AM [facility] BUN 16 5 - 25 mg/dL LAB CHEMISTRY METHOD 11/18/2024 9:35 AM [facility] Creatinine 0.60 0.50 - 1.10 mg/dL LAB CHEMISTRY METHOD 11/18/2024 9:35 AM [facility] eGFR 100 >=60 mL/min/1. 73m2 LAB CHEMISTRY METHOD 11/18/2024 9:35 AM [facility] Comment:Calculation based on the Chronic Kidney Disease Epidemiology Collaboration (CKD-EPI) equation refit without adjustment for race. BUN/Creatinine Ratio 26.7 LAB CHEMISTRY METHOD 11/18/2024 9:35 AM [facility] Calcium 7.9(L) 8.5 - 10.5 mg/dL LAB CHEMISTRY METHOD 11/18/2024 9:35 AM [facility] AST (SGOT) 50(H) 10 - 42 unit/L LAB CHEMISTRY METHOD 11/18/2024 9:35 AM [facility] ALT (SGPT) 44 10 - 60 unit/L LAB CHEMISTRY METHOD 11/18/2024 9:35 AM [facility] Alkaline Phosphatase 79 42 - 121 unit/L LAB CHEMISTRY METHOD 11/18/2024 9:35 AM [facility] Total Protein 4.9(L) 6.0 - 8.0 g/dL LAB CHEMISTRY METHOD 11/18/2024 9:35 AM [facility] Albumin 2.6(L) 3.2 - 5.0 g/dL LAB CHEMISTRY METHOD 11/18/2024 9:35 AM [facility] Total Bilirubin 2.8(H) 0.0 - 1.4 mg/dL LAB CHEMISTRY METHOD 11/18/2024 9:35 AM EDT [facility] Blood Venous blood specimen / Unknown Venipuncture / Unknown 11/18/2024 6:00 AM EDT 11/18/2024 8:36 AM EDT us Breann GALLEGOS LAB BLOOD ORDERABLES Final Resul t [facility] [address] [place] [address], documented in this encounter Visit Diagnoses Diagnosis Encounter for other general examination documented in this encounter Care Teams Laundry Machine Mechanic Relationship Specialty Start Date End Date Citlalli Reilly MD [address] [place] [phone] PCP - General Internal Medicine 11/26/24 documented as of this encounter
--- OUTSIDE RECORDS SUMMARY | 2024-12-21 16:21 | XMS_ITS | Clinical Summary ---
Author Organization [facility] Facility Address [address] [place] [id number] Care Team Providers Care Cafeteria Food Server Name Role Phone Citlalli Reilly MD Primary Care Provider Allergies Active Allergy Reactions Criticality Noted Date [...] Visual Foot Exam 12/22/2022 Influenza Vaccine (#1) 2024 1, 03/05/2010 Pneumococcal Vaccine: Peds ( 0 to 5 Years) and At-Risk Patients (6 to 49 Years) Discontinued 03/06/2010 Hepatitis B Vaccine Aged Out No longe r eligible based on patient's age to complete this topic Insurance * Guarantor: Adrienne Amaya Account Type Relation to Patient Date of Phone Billing Address Personal/Family Self 1960 [address] [place] [address] [facility] * Guarantor: Adrienne Amaya Account Type Relation to Patient Date of Phone Billing Address Personal/Family Self 1960 [address] [place] [address] [facility] Care Teams Cafeteria Food Server Relationship Specialty Start Date End Date Citlalli Reilly MD [address] [place] [id number] PCP - General Internal Medicine 12/22/22
--- OUTSIDE RECORDS SUMMARY | 2024-12-21 16:21 | XMS_ITS | Clinical Summary ---
Author Organization [facility] Address [address] [place] [address] Care Team Providers Care Hospital Wellness Coordinator Name Role Phone Citlalli Reilly MD Primary Care Provider [phone] Social History Tobacco Use Types Packs/Day Years [...] age to complete this topic Care Teams Hospital Wellness Coordinator Relationship Specialty Start Date End Date Citlalli Reilly MD [address] [place] [phone] PCP - General Internal Medicine 10/06/22
--- OUTSIDE RECORDS SUMMARY | 2024-12-21 16:21 | XMS_ITS | Encounter Summary ---
Author Organization [facility] Address [address] [place] [address] Care Team Providers Care Metal Framer Name Role Phone Citlalli Reilly MD Primary Care Provider [phone] Encounter Details Date Type Department Care Team (Late st Contact Info) Description 11/30/2024 Lab Requisition [facility] - Main Lab [address] [facility] [place] [address] Julien Luevano PA [address] [address] Encounter for other general examination [...] Associated Diagnosis Comments COMPLETE BLOOD COUNT Routine 11/30/2024 7:57 AM EDT Encounter for other general examination BASIC METABOLIC PANEL Routine 11/30/2024 7:57 AM EDT Encounter for other general examination documented in this encounter Results * (ABNORMAL) Complete blood count (11/30/2024 7:57 AM EDT) WBC 8.2 4.8 - 10.8 K/[facility] LAB HEMETOLOGY METHOD 11/30/2024 10:41 AM [facility] RBC 3.00(L) 3.80 - 4.80 M/mcL LAB HEMETOLOGY METHOD 11/30/2024 10:41 AM [facility] Hemoglobin 8.7(L) 11.5 - 16.0 g/dL LAB HEMETOLOGY METHOD 11/30/2024 10:41 AM [facility] Hematocrit 28.3(L) 35.0 - 47.0 % LAB HEMETOLOGY METHOD 11/30/2024 10:41 AM [facility] MCV 93.1 79.0 - 98.0 FL LAB HEMETOLOGY METHOD 11/30/2024 10:41 AM [facility] MCH 28.6 27.0 - 32.0 pcg LAB HEMETOLOGY METHOD 11/30/2024 10:41 AM [facility] MCHC 30.7(L) 32.0 - 37.0 g/dL LAB HEMETOLOGY METHOD 11/30/2024 10:41 AM [facility] RDW 16.4(H) 11.0 - 15.0 % LAB HEMETOLOGY METHOD 11/30/2024 10:41 AM [facility] Platelets 168 130 - 400 K/mcL LAB HEMETOLOGY METHOD 11/30/2024 10:41 AM [facility] MPV 10.1 7.0 - 11.0 FL LAB HEMETOLOGY METHOD 11/30/2024 10:41 AM [facility] NRBC 0.0 <1.0 % LAB HEMETOLOGY METHOD 11/30/2024 10:41 AM [facility] NRBC Absolute 0.00 <0.10 K/mcL LAB HEMETOLOGY METHOD 11/30/2024 10:41 AM [facility] Blood Venous blood specimen / Unknown Venipuncture / Unknown 11/30/2024 7:57 AM EDT 11/30/2024 8:47 AM EDT us Julien GALLEGOS LAB BLOOD ORDERABLES Final R esult [facility] [address] [place] [address], [place] [phone] * (ABNORMAL) Basic metabolic panel (11/30/2024 7:57 AM EDT) Pathologist [facility] [place] Sodium 134 133 - 145 mmol/L LAB CHEMISTRY METHOD 11/30/2024 11:47 AM [facility] Potassium 3.5 3.5 - 5.5 mmol/L LAB CHEMISTRY METHOD 11/30/2024 11:47 AM [facility] Chloride 97 96 - 110 mmol/L LAB CHEMISTRY METHOD 11/30/2024 11:47 AM [facility] CO2 33(H) 21 - 32 mmol/L LAB CHEMISTRY METHOD 11/30/2024 11:47 AM [facility] Anion Gap 4 3 - 11 LAB CHEMISTRY METHOD 11/30/2024 11:47 AM [facility] Glucose 115(H) 70 - 100 mg/dL LAB CHEMISTRY METHOD 11/30/2024 11:47 AM [facility] BUN 18 5 - 25 mg/dL LAB CHEMISTRY METHOD 11/30/2024 11:47 AM [facility] Creatinine 0.97 0.50 - 1.10 mg/dL LAB CHEMISTRY METHOD 11/30/2024 11:47 AM [facility] eGFR 65 >=60 mL/min/1. 73m2 LAB CHEMISTRY METHOD 11/30/2024 11:47 AM [facility] Comment:Calculation based on the Chronic Kidney Disease Epidemiology Collaboration (CKD-EPI) equation refit without adjustment for race. BUN/Creatinine Ratio 18.6 LAB CHEMISTRY METHOD 11/30/2024 11:47 AM EDT [facility] Calcium 8.5 8.5 - 10.5 mg/dL LAB CHEMISTRY METHOD 11/30/2024 11:47 AM EDT [facility] Blood Venous blood specimen / Unknown Venipuncture / Unknown 11/30/2024 7:57 AM EDT 11/30/2024 8:47 AM EDT us Julien GALLEGOS LAB BLOOD ORDERABLES Final R esult [facility] [address] [place] [address], documented in this encounter Visit Diagnoses Diagnosis Encounter for other general examination documented in this encounter Care Teams Metal Framer Relationship Specialty Start Date End Date Citlalli Reilly MD [address] [place] [phone] PCP - General Internal Medicine 11/26/24 documented as of this encounter
--- OUTSIDE RECORDS SUMMARY | 2024-12-21 16:21 | XMS_ITS | Clinical Summary ---
Author Organization [address] Address [address] [place] [address] Phone Care Team Providers Care Admitting Supervisor Name Role Phone Citlalli Reilly MD Primary Care Provider [phone] Encounters Date Type Department Care Team Description 12/03/2024 Lab Requisition [facility] Main Lab [address] [place] [address] Breann Noland PA Encounter for other general examination 12/02/2024 Lab Requisition [facility] Main Lab [address] [place] [address] Breann Noland PA Encounter for other general examination 11/30/2024 Lab Requisition [facility] Lab [address] [place] [address] Julien Luevano PA Encounter for other general examination 11/29/2024 Lab Requisition [facility] Lab [address] [place] [address] Julien Luevano PA Encounter for other general examination 11/27/2024 Lab Requisition [facility] Lab [address] [place] [address] Julien Luevano PA Encounter for other general examination 11/26/2024 Lab Requisition [facility] Main Lab [address] [place] [address] Breann Noland PA Encounter for other general examination 11/23/2024 Lab Requisition [facility] Main Lab [address] [place] [address] Julien Luevano PA Encounter for other general examination 11/18/2024 Lab Requisition [facility] - Main Lab [address] [facility] [place] [address] Breann Noland PA Encounter for other general examination from Last 3 Months Medical History Medical History Date Comments Other and unspecified hyperlipidemia DX:Other and unspecified hyperlipidemia Family History Medical History Relation Name Comments Other Dermatological Disorders Mother Specifics unknown Relation Name Status Comments Mother Social History Tobacco Use Types Packs/Day Years Used Date Smoking Tobacco: Former Smokeless Tobacco: Never Alcohol Use Standard Drinks/Week Comments Yes 0 (1 standard drink = 0.6 oz pur e alcohol) Comments Unknown Sex and Gender Information Value Date Recorded Sex Assigned at Not on file Legal Sex Female 8:38 AM EST Gender Identity Not on file Sexual Orientation Not on file Obstetrics History Last Filed Vital Signs Vital Sign Reading Time Taken Comments Blood Pressure 110/50 01/01/2022 9:15 AM EDT Sit ting L Arm Pulse 69 01/01/2022 9:15 AM EDT Temperature - - Respiratory Rate - - Oxygen Saturation - - Inhaled Oxygen Concentration - - Weight 113 kg (250 lb) 01/01/2022 8:06 AM EDT Height 154.9 cm (5' 1 ) 01/01/2022 8:06 AM EDT Body Mass Index 47.24 01/01/2022 8:06 AM EDT Plan of Treatment Health Maintenance Due Date Last Done Comments Breast Cancer Screening 1960 Diabetes: Annual Foot Exam 1969 Diabetes: Annual Retina Eye Exam 1969 Hepatitis A Vaccines (1 of 2 - Risk 2-dose series) 1978 Cervical Cancer Screening: Pap Smear 01/19/1980 Zoster Vaccines (1 of 2) 2009 Pneumococcal Vaccine: 50+ Years (2 of 2 - PCV) 03/06/2011 03/06/2010 Hepatitis B Vaccines (1 of 3 - Risk 3-dose series) 2019 RSV Immunization Adult Patients (1 - Risk 60-74 years 1-dose series) 2019 Cholesterol Screening (Lipid Panel) 03/22/2022 Colorectal Cancer Screening: Colonoscopy 03/22/2022 Hepatitis C Screening 03/22/2022 Osteoporosis Screening (Bone Density Screening) 03/22/2022 Social Influencers of Health Screening 03/22/2022 Falls Risk Assessment 01/19/2024 Depression Screening 04/19/2024 Diabetes: Annual Urine Albumin-Creatinine Ratio (uACR) 11/18/2024 07/12/2023 Diabetes: Blood Sugar Control Test (HGBA1C) 11/18/2024 COVID-19 Vaccine ( - season) 2024 04/28/2021, 06/25/2020 Influenza Vaccine (#1) 2024 04/08/2011, 2009 Diabetes: Annual GFR (Glomerular Filtration Rate) 12/02/2025 12/02/2024, 11/30/2024, 11/29/2024, Additional history exists DTaP,Tdap,and Td Vaccines (2 - Td or Tdap) 10/14/2030 10/14/2020 HIB Vaccines Aged Out No longer eligi ble based on patient's age to complete this topic HPV Vaccines Aged Out No longer eligi ble based on patient's age to complete this topic IPV Vaccines Aged Out No longer eligi ble based on patient's age to complete this topic MMR Vaccines Aged Out No longer eligi ble based on patient's age to complete this topic Meningococcal ACWY Vaccine Aged Out N o longer eligible based on patient's age to complete this topic Meningococcal B Vaccine Aged Out No l onger eligible based on patient's age to complete this topic RSV Immunization Patients Under 20 months Aged Out No longer eligible based on patient's age to complete this topic Varicella Vaccines Aged Out No longer eligible based on patient's age to complete this topic Procedures Procedure Name Priority Date/Time Associated Diagnosis Comments COMPLETE BLOOD COUNT Routine 12/03/2024 6:30 AM EDT Encounter for other general examination COMPREHENSIVE METABOLIC PANEL Routine 12/02/2024 5:00 AM EDT Encounter for other general examination COMPLETE BLOOD COUNT Routine 12/02/2024 5:00 AM EDT Encounter for other general examination COMPLETE BLOOD COUNT Routine 11/30/2024 7:57 AM EDT Encounter for other general examination BASIC METABOLIC PANEL Routine 11/30/2024 7:57 AM EDT Encounter for other general examination BASIC METABOLIC PANEL Routine 11/29/2024 8:00 AM EDT Encounter for other general examination BASIC METABOLIC PANEL Routine 11/27/2024 5:36 AM EDT Encounter for other general examination COMPLETE BLOOD COUNT Routine 11/27/2024 5:36 AM EDT Encounter for other general examination COMPREHENSIVE METABOLIC PANEL Routine 11/26/2024 7:14 AM EDT Encounter for other general examination COMPLETE BLOOD COUNT Routine 11/23/2024 7:50 AM EDT Encounter for other general examination COMPREHENSIVE METABOLIC PANEL Routine 11/23/2024 7:50 AM EDT Encounter for other general examination CBC WITH AUTO DIFFERENTIAL Routine 11/18/2024 6:00 AM EDT Encounter for other general examination MAGNESIUM Routine 11/18/2024 6:00 AM EDT Encounter for other general examination COMPREHENSIVE METABOLIC PANEL Routine 11/18/2024 6:00 AM EDT Encounter for other general examination CBC AND DIFFERENTIAL Routine 11/18/2024 6:00 AM EDT Encounter for other general examination from Last 3 Months Results * (ABNORMAL) Complete blood count (12/03/2024 6:30 AM EDT) Only the most recent of5 resultswithin the time period is included. [facility] Signature WBC 6.7 4.8 - 10.8 K/[facility] LAB HEMETOLOGY METHOD 12/03/2024 8:08 AM EDT [facility] RBC 2.70(L) 3.80 - 4.80 M/[facility] LAB HEMETOLOGY METHOD 12/03/2024 8:08 AM [...] G[facility]LE[facility] LAB BLOOD ORDERABLES Final Resul t [facility] [address] [place] [address], * (ABNORMAL) Comprehensive metabolic panel (12/02/2024 5:00 AM EDT) Only the most recent of4 resultswithin the time period is included. Sodium 136 133 - 145 mmol/L LAB CHEMISTRY METHOD 12/02/2024 10:41 AM [facility] Potassium 3.6 3.5 - 5.5 mmol/L LAB CHEMISTRY METHOD 12/02/2024 10:41 AM [facility] Chloride 100 96 - 110 mmol/L LAB CHEMISTRY METHOD 12/02/2024 10:41 AM [facility] CO2 33(H) 21 - 32 mmol/L LAB CHEMISTRY METHOD 12/02/2024 10:41 AM [facility] Anion Gap 3 3 - 11 LAB CHEMISTRY METHOD 12/02/2024 10:41 AM [facility] Glucose 86 70 - 100 mg/dL LAB CHEMISTRY METHOD 12/02/2024 10:41 AM [facility] BUN 18 5 - 25 mg/dL LAB CHEMISTRY METHOD 12/02/2024 10:41 AM [facility] Creatinine 0.99 0.50 - 1.10 mg/dL LAB CHEMISTRY METHOD 12/02/2024 10:41 AM [facility] eGFR 63 >=60 mL/min/1. 73m2 LAB CHEMISTRY METHOD 12/02/2024 10:41 AM [facility] Comment:Calculation based on the Chronic Kidney Disease Epidemiology Collaboration (CKD-EPI) equation refit without adjustment for race. BUN/Creatinine Ratio 18.2 LAB CHEMISTRY METHOD 12/02/2024 10:41 AM [facility] Calcium 8.5 8.5 - 10.5 mg/dL LAB CHEMISTRY METHOD 12/02/2024 10:41 AM T [facility] AST (SGOT) 44(H) 10 - 42 unit/L LAB CHEMISTRY METHOD 12/02/2024 10:41 AM [facility] ALT (SGPT) 32 10 - 60 unit/L LAB CHEMISTRY METHOD 12/02/2024 10:41 AM [facility] Alkaline Phosphatase 97 42 - 121 unit/L LAB CHEMISTRY METHOD 12/02/2024 10:41 AM EDT [facility] Total Protein 4.5(L) 6.0 - 8.0 g/dL LAB CHEMISTRY METHOD 12/02/2024 10:41 AM [facility] Albumin 2.3(L) 3.2 - 5.0 g/dL LAB CHEMISTRY METHOD 12/02/2024 10:41 AM [facility] Total Bilirubin 2.4(H) 0.0 - 1.4 mg/dL LAB CHEMISTRY METHOD 12/02/2024 10:41 AM [facility] Blood Venous blood specimen / Unknown Venipuncture / Unknown 12/02/2024 5:00 AM EDT 12/02/2024 9:15 AM EDT us Breann GALLEGOS LAB BLOOD ORDERABLES Final Resul t [facility] [address] [place] [address], * (ABNORMAL) Basic metabolic panel (11/30/2024 7:57 AM EDT) Only the most recent of3 resultswithin the time period is included. Sodium 134 133 - 145 mmol/L LAB CHEMISTRY METHOD 11/30/2024 11:47 AM [facility] Potassium 3.5 3.5 - 5.5 mmol/L LAB CHEMISTRY METHOD 11/30/2024 11:47 AM [facility] Chloride 97 96 - 110 mmol/L LAB CHEMISTRY METHOD 11/30/2024 11:47 AM [facility] CO2 33(H) 21 - 32 mmol/L LAB CHEMISTRY METHOD 11/30/2024 11:47 AM [facility] Anion Gap 4 3 - 11 LAB CHEMISTRY METHOD 11/30/2024 11:47 AM [facility] Glucose 115(H) 70 - 100 mg/dL LAB CHEMISTRY METHOD 11/30/2024 11:47 AM [facility] BUN 18 5 - 25 mg/dL LAB CHEMISTRY METHOD 11/30/2024 11:47 AM [facility] Creatinine 0.97 0.50 - 1.10 mg/dL LAB CHEMISTRY METHOD 11/30/2024 11:47 AM [facility] eGFR 65 >=60 mL/min/1. 73m2 LAB CHEMISTRY METHOD 11/30/2024 11:47 AM [facility] Comment:Calculation based on the Chronic Kidney Disease Epidemiology Collaboration (CKD-EPI) equation refit without adjustment for race. BUN/Creatinine Ratio 18.6 LAB CHEMISTRY METHOD 11/30/2024 11:47 AM [facility] Calcium 8.5 8.5 - 10.5 mg/dL LAB CHEMISTRY METHOD 11/30/2024 11:47 AM [facility] Blood Venous blood specimen / Unknown Venipuncture / Unknown 11/30/2024 7:57 AM EDT 11/30/2024 8:47 AM EDT Julien GALLEGOS LAB BLOOD ORDERABLES Final R esult [facility] [address] [place] [address], * (ABNORMAL) CBC auto differential (11/18/2024 6:00 AM EDT) [facility] WBC 9.7 4.8 - 10.8 K/mcL LAB HEMETOLOGY METHOD 11/18/2024 9:19 AM [facility] RBC 3.10(L) 3.80 - 4.80 M/mcL LAB HEMETOLOGY METHOD 11/18/2024 9:19 AM [facility] Hemoglobin 9.2(L) 11.5 - 16.0 g/dL LAB HEMETOLOGY METHOD 11/18/2024 9:19 AM [facility] Hematocrit 29.7(L) 35.0 - 47.0 % LAB HEMETOLOGY METHOD 11/18/2024 9:19 AM [facility] MCV 96.7 79.0 - 98.0 FL LAB HEMETOLOGY METHOD 11/18/2024 9:19 AM [facility] MCH 30.0 27.0 - 32.0 pcg LAB HEMETOLOGY METHOD 11/18/2024 9:19 AM [facility] MCHC 31.0(L) 32.0 - 37.0 g/dL LAB HEMETOLOGY METHOD 11/18/2024 9:19 AM [facility] RDW 16.9(H) 11.0 - 15.0 % LAB HEMETOLOGY METHOD 11/18/2024 9:19 AM [facility] Platelets 143 130 - 400 K/mcL LAB HEMETOLOGY METHOD 11/18/2024 9:19 AM [facility] MPV 10.2 7.0 - 11.0 FL LAB HEMETOLOGY METHOD 11/18/2024 9:19 AM [facility] NRBC 0.0 <1.0 % LAB HEMETOLOGY METHOD 11/18/2024 9:19 AM [facility] NRBC Absolute 0.00 <0.10 K/mcL LAB HEMETOLOGY METHOD 11/18/2024 9:19 AM [facility] Neutrophils Relative 69.6 % LAB HEMETOLOGY METHOD 11/18/2024 9:19 AM [facility] Lymphocytes Relative 16.4 % LAB HEMETOLOGY METHOD 11/18/2024 9:19 AM [facility] Monocytes Relative 10.0 % LAB HEMETOLOGY METHOD 11/18/2024 9:19 AM [facility] Eosinophils Relative 2.6 % LAB HEMETOLOGY METHOD 11/18/2024 9:19 AM [facility] Basophils Relative 0.6 % LAB HEMETOLOGY METHOD 11/18/2024 9:19 AM [facility] Immature Granulocytes Relative 0.8 % LAB HEMETOLOGY METHOD 11/18/2024 9:19 AM [facility] Neutrophils Absolute 6.77 1.50 - 7.00 K/mcL LAB HEMETOLOGY METHOD 11/18/2024 9:19 AM [facility] Lymphocytes Absolute 1.60 1.00 - 5.00 K/mcL LAB HEMETOLOGY METHOD 11/18/2024 9:19 AM [facility] Monocytes Absolute 0.97 0.20 - 1.00 K/mcL LAB HEMETOLOGY METHOD 11/18/2024 9:19 AM [facility] Eosinophils Absolute 0.25 0.00 - 0.50 K/mcL LAB HEMETOLOGY METHOD 11/18/2024 9:19 AM [facility] Basophils Absolute 0.06 0.00 - 0.20 K/mcL LAB HEMETOLOGY METHOD 11/18/2024 9:19 AM [facility] Immature Granulocytes Absolute 0.08(H) 0.00 - 0.03 K/mcL LAB HEMETOLOGY METHOD 11/18/2024 9:19 AM [facility] Blood Venous blood specimen / Unknown Venipuncture / Unknown 11/18/2024 6:00 AM EDT 11/18/2024 8:36 AM EDT Breann GALLEGOS LAB BLOOD ORDERABLES Final Resul t Performing Organization Address [facility]/ZIP Co de Phone Number [facility] [address] [place] [address], [place] [phone] * Magnesium (11/18/2024 6:00 AM EDT) Magnesium 1.9 1.9 - 2.6 mg/dL LAB CHEMISTRY METHOD 11/18/2024 9:35 AM EDT [facility] Blood Venous blood specimen / Unknown Venipuncture / Unknown 11/18/2024 6:00 AM EDT 11/18/2024 8:36 AM EDT Breann GALLEGOS LAB BLOOD ORDERABLES Final Resul t Performing Organization Address City/[facility]/ZIP Co de Phone Number [facility] [address] [place] [address], [place] [phone] from Last 3 Months Insurance * Guarantor: Prasanna Liu Account Type Relation to Patient Date of Phone Billing Address Personal/Family Self 1960 [address] [place] [address] MEDICARE [facility] Care Teams Admitting Supervisor Relationship Specialty Start Date End Date Citlalli Reilly MD [address] [place] [phone] PCP - General Internal Medicine 11/26/24
--- OUTSIDE RECORDS SUMMARY | 2024-12-21 16:21 | XMS_ITS ---
Author Name [facility] Organization Unknown Care Team Organization Name Specialty Phone Email Start Date End [facility] Citlalli Reilly Primary Care 01/21/2023 01/22/20 [facility] 09/19/2022 [facility] Citlalli Reilly Primary Care
== END 2024-12-21 16:23 | disposition home or self-care (01) ==
LOC: HO.HMCFM 15:23
PROVIDERS: PCP Internal Medicine; Visit Provider Internal Medicine
DX: I25.2 Old myocardial infarction (principal); I48.0 Paroxysmal atrial fibrillation; Z09 Encounter for follow-up examination after completed treatment for conditions other than malignant neoplasm; I73.9 Peripheral vascular disease, unspecified; D69.6 Thrombocytopenia, unspecified

== ENCOUNTER 2024-12-22 11:58 | Outpatient (REF) | payer BC, SELFPAY ==
--- OUTSIDE RECORDS SUMMARY | 2024-12-22 12:41 | XMS_ITS | Encounter Summary ---
Author Organization [facility] Address [address] [place] [address] Care Team Providers Care Toll Testboard Worker Name Role Phone Citlalli Reilly MD Primary Care Provider [phone] Encounter Details Date Type Department Care Team (Late st Contact Info) Description 11/27/2024 Lab Requisition [facility] - Main Lab [address] [facility] [place] [address] Julien Luevano PA [address] [address] Encounter for other general examination [...] LAB CHEMISTRY METHOD 11/27/2024 11:58 AM EDT [facility] Potassium 3.3(L) 3.5 - 5.5 mmol/L LAB CHEMISTRY METHOD 11/27/2024 11:[address] [facility] Chloride 98 96 - 110 mmol/L LAB CHEMISTRY METHOD 11/27/2024 11:[address] [facility] CO2 32 21 - 32 mmol/L LAB CHEMISTRY METHOD 11/27/2024 11:[address] [facility] Anion Gap 7 3 - 11 LAB CHEMISTRY METHOD 11/27/2024 11:[address] [facility] Glucose 110(H) 70 - 100 mg/dL LAB CHEMISTRY METHOD 11/27/2024 11:[address] [facility] BUN 19 5 - 25 mg/dL LAB CHEMISTRY METHOD 11/27/2024 11:[address] [facility] Creatinine 0.99 0.50 - 1.10 mg/dL LAB CHEMISTRY METHOD 11/27/2024 11:[address] [facility] eGFR 63 >=60 mL/min/1. 73m2 LAB CHEMISTRY METHOD 11/27/2024 11:[address] [facility] Comment:Calculation based on the Chronic Kidney Disease Epidemiology Collaboration (CKD-EPI) equation refit without adjustment for race. BUN/Creatinine Ratio 19.2 LAB CHEMISTRY METHOD 11/27/2024 11:[address] [facility] Calcium 8.0(L) 8.5 - 10.5 mg/dL LAB CHEMISTRY METHOD 11/27/2024 11:[address] [facility] Blood Venous blood specimen / Unknown Venipuncture / Unknown 11/27/2024 5:36 AM EDT 11/27/2024 9:46 AM EDT us Julien GALLEGOS LAB BLOOD ORDERABLES Final R esult [facility] [address] [place] [address], * (ABNORMAL) Complete blood count (11/27/2024 5:36 AM EDT) [facility] WBC 7.0 4.8 - 10.8 K/mcL LAB HEMETOLOGY METHOD 11/27/2024 11:[address] [facility] RBC 2.90(L) 3.80 - 4.80 M/mcL LAB HEMETOLOGY METHOD 11/27/2024 11:[address] [facility] Hemoglobin 8.6(L) 11.5 - 16.0 g/dL LAB HEMETOLOGY METHOD 11/27/2024 11:[address] [facility] Hematocrit 26.9(L) 35.0 - 47.0 % LAB HEMETOLOGY METHOD 11/27/2024 11:[address] [facility] MCV 93.1 79.0 - 98.0 FL LAB HEMETOLOGY METHOD 11/27/2024 11:[address] [facility] MCH 29.8 27.0 - 32.0 pcg LAB HEMETOLOGY METHOD 11/27/2024 11:[address] [facility] MCHC 32.0 32.0 - 37.0 g/dL LAB HEMETOLOGY METHOD 11/27/2024 11:[address] [facility] RDW 16.5(H) 11.0 - 15.0 % LAB HEMETOLOGY METHOD 11/27/2024 11:[address] [facility] Platelets 130 130 - 400 K/mcL LAB HEMETOLOGY METHOD 11/27/2024 11:[address] [facility] MPV 9.9 7.0 - 11.0 FL LAB HEMETOLOGY METHOD 11/27/2024 11:[address] [facility] NRBC 0.0 <1.0 % LAB HEMETOLOGY METHOD 11/27/2024 11:22 AM EDT [facility] NRBC Absolute 0.00 <0.10 K/mcL LAB HEMETOLOGY METHOD 11/27/2024 11:22 AM EDT [facility] Blood Venous blood specimen / Unknown Venipuncture / Unknown 11/27/2024 5:36 AM EDT 11/27/2024 9:46 AM EDT us Julien GALLEGOS LAB BLOOD ORDERABLES Final R esult [facility] [address] [place] [address], documented in this encounter Visit Diagnoses Diagnosis Encounter for other general examination documented in this encounter Care Teams Toll Testboard Worker Relationship Specialty Start Date End Date Citlalli Reilly MD [address] [place] [phone] PCP - General Internal Medicine 11/26/24 documented as of this encounter
--- OUTSIDE RECORDS SUMMARY | 2024-12-22 12:41 | XMS_ITS | Encounter Summary ---
Author Organization [facility] Address [address] [place] [address] Care Team Providers Care Medical Coding Auditor Name Role Phone Citlalli Reilly MD Primary Care Provider [phone] Encounter Details Date Type Department Care Team (Late st Contact Info) Description 11/26/2024 Lab Requisition [facility] - Main Lab [address] [facility] [place] [address] Breann Noland PA [address] [place] [address] Encounter for other general examination Social History [...] LAB CHEMISTRY METHOD 11/26/2024 11:34 AM EDT [facility] Potassium 3.0(L) 3.5 - 5.5 mmol/L LAB CHEMISTRY METHOD 11/26/2024 11:34 AM [facility] Chloride 97 96 - 110 mmol/L LAB CHEMISTRY METHOD 11/26/2024 11:34 AM [facility] CO2 33(H) 21 - 32 mmol/L LAB CHEMISTRY METHOD 11/26/2024 11:34 AM [facility] Anion Gap 8 3 - 11 LAB CHEMISTRY METHOD 11/26/2024 11:34 AM [facility] Glucose 93 70 - 100 mg/dL LAB CHEMISTRY METHOD 11/26/2024 11:34 AM [facility] BUN 19 5 - 25 mg/dL LAB CHEMISTRY METHOD 11/26/2024 11:34 AM [facility] Creatinine 0.83 0.50 - 1.10 mg/dL LAB CHEMISTRY METHOD 11/26/2024 11:34 AM [facility] eGFR 78 >=60 mL/min/1. 73m2 LAB CHEMISTRY METHOD 11/26/2024 11:34 AM [facility] Comment:Calculation based on the Chronic Kidney Disease Epidemiology Collaboration (CKD-EPI) equation refit without adjustment for race. BUN/Creatinine Ratio 22.9 LAB CHEMISTRY METHOD 11/26/2024 11:34 AM [facility] Calcium 8.0(L) 8.5 - 10.5 mg/dL LAB CHEMISTRY METHOD 11/26/2024 11:34 AM [facility] AST (SGOT) 41 10 - 42 unit/L LAB CHEMISTRY METHOD 11/26/2024 11:34 AM [facility] ALT (SGPT) 28 10 - 60 unit/L LAB CHEMISTRY METHOD 11/26/2024 11:34 AM [facility] Alkaline Phosphatase 104 42 - 121 unit/L LAB CHEMISTRY METHOD 11/26/2024 11:34 AM [facility] Total Protein 4.8(L) 6.0 - 8.0 g/dL LAB CHEMISTRY METHOD 11/26/2024 11:34 AM EDT [facility] Albumin 2.3(L) 3.2 - 5.0 g/dL LAB CHEMISTRY METHOD 11/26/2024 11:34 AM EDT [facility] Total Bilirubin 3.0(H) 0.0 - 1.4 mg/dL LAB CHEMISTRY METHOD 11/26/2024 11:34 AM EDT [facility] Blood Venous blood specimen / Unknown 11/26/2024 7:14 AM EDT 11/26/2024 10:44 AM EDT us Breann GALLEGOS LAB BLOOD ORDERABLES Final Resul t [facility] [address] [place] [address], documented in this encounter Visit Diagnoses Diagnosis Encounter for other general examination documented in this encounter Care Teams Medical Coding Auditor Relationship Specialty Start Date End Date Citlalli Reilly MD [address] [place] [address] PCP - General Internal Medicine 11/26/24 documented as of this encounter
--- OUTSIDE RECORDS SUMMARY | 2024-12-22 12:41 | XMS_ITS | Encounter Summary ---
Author Organization [facility] Address [address] [place] [address] Care Team Providers Care Answering Service Operator Name Role Phone Citlalli Reilly MD Primary Care Provider [phone] Encounter Details Date Type Department Care Team (Late st Contact Info) Description 12/02/2024 Lab Requisition [facility] - Main Lab [address] [facility] [place] [address] Breann Noland PA [address] [place] [address] Encounter for other general examination Social History [...] LAB CHEMISTRY METHOD 12/02/2024 10:41 AM EDT [facility] Potassium 3.6 3.5 - 5.5 mmol/L LAB CHEMISTRY METHOD 12/02/2024 10:41 AM [facility] Chloride 100 96 - 110 mmol/L LAB CHEMISTRY METHOD 12/02/2024 10:41 AM [facility] CO2 33(H) 21 - 32 mmol/L LAB CHEMISTRY METHOD 12/02/2024 10:41 AM [facility] Anion Gap 3 3 - 11 LAB CHEMISTRY METHOD 12/02/2024 10:41 AM [facility] Glucose 86 70 - 100 mg/dL LAB CHEMISTRY METHOD 12/02/2024 10:41 AM [facility] BUN 18 5 - 25 mg/dL LAB CHEMISTRY METHOD 12/02/2024 10:41 AM [facility] Creatinine 0.99 0.50 - 1.10 mg/dL LAB CHEMISTRY METHOD 12/02/2024 10:41 AM [facility] eGFR 63 >=60 mL/min/1. 73m2 LAB CHEMISTRY METHOD 12/02/2024 10:41 AM [facility] Comment:Calculation based on the Chronic Kidney Disease Epidemiology Collaboration (CKD-EPI) equation refit without adjustment for race. BUN/Creatinine Ratio 18.2 LAB CHEMISTRY METHOD 12/02/2024 10:41 AM [facility] Calcium 8.5 8.5 - 10.5 mg/dL LAB CHEMISTRY METHOD 12/02/2024 10:41 AM [facility] AST (SGOT) 44(H) 10 - 42 unit/L LAB CHEMISTRY METHOD 12/02/2024 10:41 AM [facility] ALT (SGPT) 32 10 - 60 unit/L LAB CHEMISTRY METHOD 12/02/2024 10:41 AM [facility] Alkaline Phosphatase 97 42 - 121 unit/L LAB CHEMISTRY METHOD 12/02/2024 10:41 AM [facility] Total Protein 4.5(L) 6.0 - 8.0 g/dL LAB CHEMISTRY METHOD 12/02/2024 10:41 AM EDT [facility] Albumin 2.3(L) 3.2 - 5.0 g/dL LAB CHEMISTRY METHOD 12/02/2024 10:41 AM EDT [facility] Total Bilirubin 2.4(H) 0.0 - 1.4 mg/dL LAB CHEMISTRY METHOD 12/02/2024 10:41 AM EDT [facility] Blood Venous blood specimen / Unknown Venipuncture / Unknown 12/02/2024 5:00 AM EDT 12/02/2024 9:15 AM EDT us Breann GALLEGOS LAB BLOOD ORDERABLES Final Resul t [facility] [address] [place] [address], * (ABNORMAL) Complete blood count (12/02/2024 5:00 AM EDT) WBC 6.4 4.8 - 10.8 K/mcL LAB HEMETOLOGY METHOD 12/02/2024 10:11 AM [facility] RBC 2.60(L) 3.80 - 4.80 M/mcL LAB HEMETOLOGY METHOD 12/02/2024 10:11 AM [facility] Hemoglobin 7.3(L) 11.5 - 16.0 g/dL LAB HEMETOLOGY METHOD 12/02/2024 10:11 AM [facility] Hematocrit 23.6(L) 35.0 - 47.0 % LAB HEMETOLOGY METHOD 12/02/2024 10:11 AM [facility] MCV 91.5 79.0 - 98.0 FL LAB HEMETOLOGY METHOD 12/02/2024 10:11 AM T [facility] MCH 28.3 27.0 - 32.0 pcg LAB HEMETOLOGY METHOD 12/02/2024 10:11 AM EDT [facility] MCHC 30.9(L) 32.0 - 37.0 g/dL LAB HEMETOLOGY METHOD 12/02/2024 10:11 AM EDT [facility] RDW 16.4(H) 11.0 - 15.0 % LAB HEMETOLOGY METHOD 12/02/2024 10:11 AM EDT [facility] Platelets 115(L) 130 - 400 K/mcL LAB HEMETOLOGY METHOD 12/02/2024 10:11 AM EDT [facility] MPV 9.8 7.0 - 11.0 FL LAB HEMETOLOGY METHOD 12/02/2024 10:11 AM EDT [facility] NRBC 0.0 <1.0 % LAB HEMETOLOGY METHOD 12/02/2024 10:11 AM EDT [facility] NRBC Absolute 0.00 <0.10 K/mcL LAB HEMETOLOGY METHOD 12/02/2024 10:11 AM T [facility] Blood Venous blood specimen / Unknown Venipuncture / Unknown 12/02/2024 5:00 AM EDT 12/02/2024 9:15 AM EDT us Breann GALLEGOS LAB BLOOD ORDERABLES Final Resul t [facility] [address] [place] [address], documented in this encounter Visit Diagnoses Diagnosis Encounter for other general examination documented in this encounter Care Teams Answering Service Operator Relationship Specialty Start Date End Date Citlalli Reilly MD [address] [place] [phone] PCP - General Internal Medicine 11/26/24 documented as of this encounter
--- OUTSIDE RECORDS SUMMARY | 2024-12-22 12:41 | XMS_ITS | Encounter Summary ---
Author Organization [facility] Address [address] [place] [address] Care Team Providers Care Sanitarian Inspector Name Role Phone Citlalli Reilly MD Primary Care Provider [phone] Encounter Details Date Type Department Care Team (Late st Contact Info) Description 11/30/2024 Lab Requisition [facility] - Main Lab 299 [facility] [place] [address] Julien Luevano PA [address] [address] Encounter for other general examination [...] AM EDT) WBC 8.2 4.8 - 10.8 K/[facility] LAB HEMETOLOGY METHOD 11/30/2024 10:41 AM [facility] RBC 3.00(L) 3.80 - 4.80 M/mcL LAB HEMETOLOGY METHOD 11/30/2024 10:41 AM [facility] Hemoglobin 8.7(L) 11.5 - 16.0 g/dL LAB HEMETOLOGY METHOD 11/30/2024 10:41 AM [facility] Hematocrit 28.3(L) 35.0 - 47.0 % LAB HEMETOLOGY METHOD 11/30/2024 10:41 AM [facility] MCV 93.1 79.0 - 98.0 FL LAB HEMETOLOGY METHOD 11/30/2024 10:41 AM [facility] MCH 28.6 27.0 - 32.0 pcg LAB HEMETOLOGY METHOD 11/30/2024 10:41 AM [facility] MCHC 30.7(L) 32.0 - 37.0 g/dL LAB HEMETOLOGY METHOD 11/30/2024 10:41 AM [facility] RDW 16.4(H) 11.0 - 15.0 % LAB HEMETOLOGY METHOD 11/30/2024 10:41 AM [facility] Platelets 168 130 - 400 K/mcL LAB HEMETOLOGY METHOD 11/30/2024 10:41 AM [facility] MPV 10.1 7.0 - 11.0 FL LAB HEMETOLOGY METHOD 11/30/2024 10:41 AM [facility] NRBC 0.0 <1.0 % LAB HEMETOLOGY METHOD 11/30/2024 10:41 AM [facility] NRBC Absolute 0.00 <0.10 K/mcL LAB HEMETOLOGY METHOD 11/30/2024 10:41 AM [facility] Blood Venous blood specimen / Unknown Venipuncture / Unknown 11/30/2024 7:57 AM EDT 11/30/2024 8:47 AM EDT us Julien GALLEGOS LAB BLOOD ORDERABLES Final R esult [facility] [address] [place] [address], [place] [phone] * (ABNORMAL) Basic metabolic panel (11/30/2024 7:57 AM EDT) Pathologist [facility] Sodium 134 133 - 145 mmol/L LAB [...] LAB CHEMISTRY METHOD 11/30/2024 11:47 AM EDT [facility] Calcium 8.5 8.5 - 10.5 mg/dL LAB CHEMISTRY METHOD 11/30/2024 11:47 AM EDT [facility] Blood Venous blood specimen / Unknown Venipuncture / Unknown 11/30/2024 7:57 AM EDT 11/30/2024 8:47 AM EDT us Julien GALLEGOS LAB BLOOD ORDERABLES Final R esult [facility] [address] [place] [address], documented in this encounter Visit Diagnoses Diagnosis Encounter for other general examination documented in this encounter Care Teams Sanitarian Inspector Relationship Specialty Start Date End Date Citlalli Reilly MD [address] [place] [phone] PCP - General Internal Medicine 11/26/24 documented as of this encounter
--- OUTSIDE RECORDS SUMMARY | 2024-12-22 12:41 | XMS_ITS | Clinical Summary ---
Author Organization [facility] Facility Address [address] [place] [address] Care Team Providers Care Delphi Programmer Name Role Phone Citlalli Reilly MD Primary Care Provider [phone] Allergies Active Allergy Reactions Criticality Noted Date [...] Billing Address Personal/Family Self 1960 [address] [place] [address] [facility] * Guarantor: Adrienne Amaya Account Type Relation to Patient Date of Phone Billing Address Personal/Family Self 1960 [address] [place] [address] [facility] Care Teams Delphi Programmer Relationship Specialty Start Date End Date Citlalli Reilly MD [address] [place] [id number] PCP - General Internal Medicine 12/22/22
--- OUTSIDE RECORDS SUMMARY | 2024-12-22 12:41 | XMS_ITS | Clinical Summary ---
Author Organization [facility] Address [address] [place] [address] Care Team Providers Care Avionics Systems Integration Specialist Name Role Phone Citlalli Reilly MD Primary Care Provider [phone] Social History Tobacco Use Types Packs/Day Years [...] age to complete this topic Care Teams Avionics Systems Integration Specialist Relationship Specialty Start Date End Date Citlalli Reilly MD [address] [place] [phone] PCP - General Internal Medicine 10/06/22
--- OUTSIDE RECORDS SUMMARY | 2024-12-22 12:41 | XMS_ITS | Encounter Summary ---
Author Organization [facility] Address [address] [place] [address] Care Team Providers Care Greenskeeper Head Name Role Phone Citlalli Reilly MD Primary Care Provider [phone] Encounter Details Date Type Department Care Team (Late st Contact Info) Description 11/18/2024 Lab Requisition [facility] - Main Lab 299 [facility] [place] [address] Breann Noland PA [address] [place] [phone] Encounter for other general examination Social History [...] CBC auto differential (11/18/2024 6:00 AM EDT) [facility] WBC 9.7 4.8 - 10.8 K/mcL LAB HEMETOLOGY METHOD 11/18/2024 9:19 AM [facility] RBC 3.10(L) 3.80 - 4.80 M/mcL LAB HEMETOLOGY METHOD 11/18/2024 9:19 AM [facility] Hemoglobin 9.2(L) 11.5 - 16.0 g/dL LAB HEMETOLOGY METHOD 11/18/2024 9:19 AM [facility] Hematocrit 29.7(L) 35.0 - 47.0 % LAB HEMETOLOGY METHOD 11/18/2024 9:19 AM [facility] MCV 96.7 79.0 - 98.0 FL LAB HEMETOLOGY METHOD 11/18/2024 9:19 AM [facility] MCH 30.0 27.0 - 32.0 pcg LAB HEMETOLOGY METHOD 11/18/2024 9:19 AM [facility] MCHC 31.0(L) 32.0 - 37.0 g/dL LAB HEMETOLOGY METHOD 11/18/2024 9:19 AM [facility] RDW 16.9(H) 11.0 - 15.0 % LAB HEMETOLOGY METHOD 11/18/2024 9:19 AM [facility] Platelets 143 130 - 400 K/mcL LAB HEMETOLOGY METHOD 11/18/2024 9:19 AM [facility] MPV 10.2 7.0 - 11.0 FL LAB HEMETOLOGY METHOD 11/18/2024 9:19 AM [facility] NRBC 0.0 <1.0 % LAB HEMETOLOGY METHOD 11/18/2024 9:19 AM [facility] NRBC Absolute 0.00 <0.10 K/mcL LAB HEMETOLOGY METHOD 11/18/2024 9:19 AM [facility] Neutrophils Relative 69.6 % LAB HEMETOLOGY METHOD 11/18/2024 9:19 AM [facility] Lymphocytes Relative 16.4 % LAB HEMETOLOGY METHOD 11/18/2024 9:19 AM [facility] Monocytes Relative 10.0 % LAB HEMETOLOGY METHOD 11/18/2024 9:19 AM [facility] Eosinophils Relative 2.6 % LAB HEMETOLOGY METHOD 11/18/2024 9:19 AM [facility] Basophils Relative 0.6 % LAB HEMETOLOGY METHOD 11/18/2024 9:19 AM [facility] Immature Granulocytes Relative 0.8 % LAB HEMETOLOGY METHOD 11/18/2024 9:19 AM [facility] Neutrophils Absolute 6.77 1.50 - 7.00 K/mcL LAB HEMETOLOGY METHOD 11/18/2024 9:19 AM [facility] Lymphocytes Absolute 1.60 1.00 - 5.00 K/mcL LAB HEMETOLOGY METHOD 11/18/2024 9:19 AM [facility] Monocytes Absolute 0.97 0.20 - 1.00 K/mcL LAB HEMETOLOGY METHOD 11/18/2024 9:19 AM [facility] Eosinophils Absolute 0.25 0.00 - 0.50 K/mcL LAB HEMETOLOGY METHOD 11/18/2024 9:19 AM [facility] Basophils Absolute 0.06 0.00 - 0.20 K/mcL LAB HEMETOLOGY METHOD 11/18/2024 9:19 AM [facility] Immature Granulocytes Absolute 0.08(H) 0.00 - 0.03 K/mcL LAB HEMETOLOGY METHOD 11/18/2024 9:19 AM EDT [facility] Blood Venous blood specimen / Unknown Venipuncture / Unknown 11/18/2024 6:00 AM EDT 11/18/2024 8:36 AM EDT Breann GALLEGOS LAB BLOOD ORDERABLES Final Resul t Performing Organization Address City/[facility]/ZIP Co de Phone Number [facility] [address] [place] [address], [place] [phone] * Magnesium (11/18/2024 6:00 AM EDT) Pathologist [facility] Magnesium 1.9 1.9 - 2.6 mg/dL LAB CHEMISTRY METHOD 11/18/2024 9:35 AM EDT [facility] Blood Venous blood specimen / Unknown Venipuncture / Unknown 11/18/2024 6:00 AM EDT 11/18/2024 8:36 AM EDT Breann GALLEGOS LAB BLOOD ORDERABLES Final Resul t Performing Organization Address [facility]/ZIP Co de Phone Number [facility] [address] [place] [address], [place] [phone] * (ABNORMAL) Comprehensive metabolic panel (11/18/2024 6:00 AM EDT) Sodium 137 133 - 145 mmol/L LAB CHEMISTRY METHOD 11/18/2024 9:35 AM EDT [facility] Potassium 3.8 3.5 - 5.5 mmol/L LAB CHEMISTRY METHOD 11/18/2024 9:35 AM EDT [facility] Chloride 104 96 - 110 mmol/L LAB CHEMISTRY METHOD 11/18/2024 9:35 AM EDT [facility] CO2 26 21 - 32 mmol/L LAB CHEMISTRY METHOD 11/18/2024 9:35 AM EDT [facility] Anion Gap 7 3 - 11 LAB CHEMISTRY METHOD 11/18/2024 9:35 AM [facility] Glucose 102(H) 70 - 100 mg/dL LAB CHEMISTRY METHOD 11/18/2024 9:35 AM [facility] BUN 16 5 - 25 mg/dL LAB CHEMISTRY METHOD 11/18/2024 9:35 AM [facility] Creatinine 0.60 0.50 - 1.10 mg/dL LAB CHEMISTRY METHOD 11/18/2024 9:35 AM [facility] eGFR 100 >=60 mL/min/1. 73m2 LAB CHEMISTRY METHOD 11/18/2024 9:35 AM [facility] Comment:Calculation based on the Chronic Kidney Disease Epidemiology Collaboration (CKD-EPI) equation refit without adjustment for race. BUN/Creatinine Ratio 26.7 LAB CHEMISTRY METHOD 11/18/2024 9:35 AM [facility] Calcium 7.9(L) 8.5 - 10.5 mg/dL LAB CHEMISTRY METHOD 11/18/2024 9:35 AM [facility] AST (SGOT) 50(H) 10 - 42 unit/L LAB CHEMISTRY METHOD 11/18/2024 9:35 AM [facility] ALT (SGPT) 44 10 - 60 unit/L LAB CHEMISTRY METHOD 11/18/2024 9:35 AM [facility] Alkaline Phosphatase 79 42 - 121 unit/L LAB CHEMISTRY METHOD 11/18/2024 9:35 AM [facility] Total Protein 4.9(L) 6.0 - 8.0 g/dL LAB CHEMISTRY METHOD 11/18/2024 9:35 AM [facility] Albumin 2.6(L) 3.2 - 5.0 g/dL LAB CHEMISTRY METHOD 11/18/2024 9:35 AM [facility] Total Bilirubin 2.8(H) 0.0 - 1.4 mg/dL LAB CHEMISTRY METHOD 11/18/2024 9:35 AM EDT [facility] Blood Venous blood specimen / Unknown Venipuncture / Unknown 11/18/2024 6:00 AM EDT 11/18/2024 8:36 AM EDT us Breann GALLEGOS LAB BLOOD ORDERABLES Final Resul t [facility] [address] [place] [address], documented in this encounter Visit Diagnoses Diagnosis Encounter for other general examination documented in this encounter Care Teams Greenskeeper Head Relationship Specialty Start Date End Date Citlalli Reilly MD [address] [place] [phone] PCP - General Internal Medicine 11/26/24 documented as of this encounter
--- OUTSIDE RECORDS SUMMARY | 2024-12-22 12:41 | XMS_ITS | Clinical Summary ---
Author Organization [address] Address [address] [place] [address] Phone Care Team Providers Care Station Detective Name Role Phone Citlalli Reilly MD Primary Care Provider Encounters Date Type Department Care Team Description 12/03/2024 Lab Requisition [facility] Main Lab [address] [place] [address] Breann Noland PA Encounter for other general examination 12/02/2024 Lab Requisition [facility] Main Lab [address] [place] [address] Breann Noland PA Encounter for other general examination 11/30/2024 Lab Requisition [facility] Lab [address] [place] [address] Julien Luevano PA Encounter for other general examination 11/29/2024 Lab Requisition [facility] Lab [address] [place] [address] Julien Luevano PA Encounter for other general examination 11/27/2024 Lab Requisition [facility] Lab [address] [place] [address] Julien Luevano PA Encounter for other general examination 11/26/2024 Lab Requisition [facility] Main Lab [address] [place] [address] Breann Noland PA Encounter for other general examination 11/23/2024 Lab Requisition [facility] Main Lab [address] [place] [address] Julien Luevano PA Encounter for other general examination 11/18/2024 Lab Requisition [facility] - Main Lab 299 [facility] [place] [address] Breann Noland PA Encounter for [...] of5 resultswithin the time period is included. [facility] Signature WBC 6.7 4.8 - 10.8 K/[facility] LAB HEMETOLOGY METHOD 12/03/2024 8:08 AM EDT [facility] RBC 2.70(L) 3.80 - 4.80 M/[facility] LAB HEMETOLOGY METHOD 12/03/2024 8:08 AM [facility] Hemoglobin 7.7(L) 11.5 - 16.0 g/dL LAB HEMETOLOGY METHOD 12/03/2024 8:08 AM [facility] Hematocrit 24.6(L) 35.0 - 47.0 % LAB HEMETOLOGY METHOD 12/03/2024 8:08 AM [facility] MCV 90.8 79.0 - 98.0 FL LAB HEMETOLOGY METHOD 12/03/2024 8:08 AM [facility] MCH 28.4 27.0 - 32.0 pcg LAB HEMETOLOGY METHOD 12/03/2024 8:08 AM [facility] MCHC 31.3(L) 32.0 - 37.0 g/dL LAB HEMETOLOGY METHOD 12/03/2024 8:08 AM [facility] RDW 16.4(H) 11.0 - 15.0 % LAB HEMETOLOGY METHOD 12/03/2024 8:08 AM [facility] Platelets 132 130 - 400 K/mcL LAB HEMETOLOGY METHOD 12/03/2024 8:08 AM [facility] MPV 10.0 7.0 - 11.0 FL LAB HEMETOLOGY METHOD 12/03/2024 8:08 AM [facility] NRBC 0.0 <1.0 % LAB HEMETOLOGY METHOD 12/03/2024 8:08 AM [facility] NRBC Absolute 0.00 <0.10 K/mcL LAB HEMETOLOGY METHOD 12/03/2024 8:08 AM [facility] Blood Venous blood specimen / Unknown Venipuncture / Unknown 12/03/2024 6:30 AM EDT 12/03/2024 7:46 AM EDT us Breann GALLEGOS LAB BLOOD ORDERABLES Final Resul t [facility] [address] [place] [address], * (ABNORMAL) Comprehensive metabolic panel (12/02/2024 5:00 AM EDT) Only the most recent of4 resultswithin the time period is included. Sodium 136 133 - 145 mmol/L LAB CHEMISTRY METHOD 12/02/2024 10:41 AM [facility] Potassium 3.6 3.5 - 5.5 mmol/L LAB CHEMISTRY METHOD 12/02/2024 10:41 AM [facility] Chloride 100 96 - 110 mmol/L LAB CHEMISTRY METHOD 12/02/2024 10:41 AM [facility] CO2 33(H) 21 - 32 mmol/L LAB CHEMISTRY METHOD 12/02/2024 10:41 AM [facility] Anion Gap 3 3 - 11 LAB CHEMISTRY METHOD 12/02/2024 10:41 AM [facility] Glucose 86 70 - 100 mg/dL LAB CHEMISTRY METHOD 12/02/2024 10:41 AM [facility] BUN 18 5 - 25 mg/dL LAB CHEMISTRY METHOD 12/02/2024 10:41 AM [facility] Creatinine 0.99 0.50 - 1.10 mg/dL LAB CHEMISTRY METHOD 12/02/2024 10:41 AM [facility] eGFR 63 >=60 mL/min/1. 73m2 LAB CHEMISTRY METHOD 12/02/2024 10:41 AM [facility] Comment:Calculation based on the Chronic Kidney Disease Epidemiology Collaboration (CKD-EPI) equation refit without adjustment for race. BUN/Creatinine Ratio 18.2 LAB CHEMISTRY METHOD 12/02/2024 10:41 AM [facility] Calcium 8.5 8.5 - 10.5 mg/dL LAB CHEMISTRY METHOD 12/02/2024 10:41 AM T [facility] AST (SGOT) 44(H) 10 - 42 unit/L LAB CHEMISTRY METHOD 12/02/2024 10:41 AM [facility] ALT (SGPT) 32 10 - 60 unit/L LAB CHEMISTRY METHOD 12/02/2024 10:41 AM [facility] Alkaline Phosphatase 97 42 - 121 unit/L LAB CHEMISTRY METHOD 12/02/2024 10:41 AM EDT [facility] Total Protein 4.5(L) 6.0 - 8.0 g/dL LAB CHEMISTRY METHOD 12/02/2024 10:41 AM [facility] Albumin 2.3(L) 3.2 - 5.0 g/dL LAB CHEMISTRY METHOD 12/02/2024 10:41 AM [facility] Total Bilirubin 2.4(H) 0.0 - 1.4 mg/dL LAB CHEMISTRY METHOD 12/02/2024 10:41 AM [facility] Blood Venous blood specimen / Unknown Venipuncture / Unknown 12/02/2024 5:00 AM EDT 12/02/2024 9:15 AM EDT us Breann GALLEGOS LAB BLOOD ORDERABLES Final Resul t [facility] [address] [place] [address], * (ABNORMAL) Basic metabolic panel (11/30/2024 7:57 AM EDT) Only the most recent of3 resultswithin the time period is included. Sodium 134 133 - 145 mmol/L LAB CHEMISTRY METHOD 11/30/2024 11:47 AM [facility] Potassium 3.5 3.5 - 5.5 mmol/L LAB CHEMISTRY METHOD 11/30/2024 11:47 AM [facility] Chloride 97 96 - 110 mmol/L LAB CHEMISTRY METHOD 11/30/2024 11:47 AM [facility] CO2 33(H) 21 - 32 mmol/L LAB CHEMISTRY METHOD 11/30/2024 11:47 AM [facility] Anion Gap 4 3 - 11 LAB CHEMISTRY METHOD 11/30/2024 11:47 AM [facility] Glucose 115(H) 70 - 100 mg/dL LAB CHEMISTRY METHOD 11/30/2024 11:47 AM [facility] BUN 18 5 - 25 mg/dL LAB CHEMISTRY METHOD 11/30/2024 11:47 AM [facility] Creatinine 0.97 0.50 - 1.10 mg/dL LAB CHEMISTRY METHOD 11/30/2024 11:47 AM [facility] eGFR 65 >=60 mL/min/1. 73m2 LAB CHEMISTRY METHOD 11/30/2024 11:47 AM [facility] Comment:Calculation based on the Chronic Kidney Disease Epidemiology Collaboration (CKD-EPI) equation refit without adjustment for race. BUN/Creatinine Ratio 18.6 LAB CHEMISTRY METHOD 11/30/2024 11:47 AM [facility] Calcium 8.5 8.5 - 10.5 mg/dL LAB CHEMISTRY METHOD 11/30/2024 11:47 AM [facility] Blood Venous blood specimen / Unknown Venipuncture / Unknown 11/30/2024 7:57 AM EDT 11/30/2024 8:47 AM EDT Julien GALLEGOS LAB BLOOD ORDERABLES Final R esult [facility] [address] [place] [address], * (ABNORMAL) CBC auto differential (11/18/2024 6:00 AM EDT) [facility] WBC 9.7 4.8 - 10.8 K/mcL LAB [...] METHOD 11/18/2024 9:19 AM [facility] Blood Venous blood specimen / Unknown Venipuncture / Unknown 11/18/2024 6:00 AM EDT 11/18/2024 8:36 AM EDT Breann GALLEGOS LAB BLOOD ORDERABLES Final Resul t Performing Organization Address [facility]/ZIP Co de Phone Number [facility] [address] [place] [address], [place] [phone] * Magnesium (11/18/2024 6:00 AM EDT) Magnesium 1.9 1.9 - 2.6 mg/dL LAB CHEMISTRY METHOD 11/18/2024 9:35 AM EDT [facility] Blood Venous blood specimen / Unknown Venipuncture / Unknown 11/18/2024 6:00 AM EDT 11/18/2024 8:36 AM EDT Breann GALLEGOS LAB BLOOD ORDERABLES Final Resul t Performing Organization Address [facility]/ZIP Co de Phone Number [facility] [address] [place] [address], [place] [phone] from Last 3 Months Insurance * Guarantor: Prasanna Liu Account Type Relation to Patient Date of Phone Billing Address Personal/Family Self 1960 [address] [place] [address] [facility] Care Teams Station Detective Relationship Specialty Start Date End Date Citlalli Reilly MD [address] [place] [phone] PCP - General Internal Medicine 11/26/24
--- OUTSIDE RECORDS SUMMARY | 2024-12-22 12:41 | XMS_ITS | Encounter Summary ---
Author Organization [facility] Address [address] [place] [address] Care Team Providers Care Application Counselor Name Role Phone Citlalli Reilly MD Primary Care Provider [phone] Encounter Details Date Type Department Care Team (Late st Contact Info) Description 11/23/2024 Lab Requisition [facility] - Main Lab 299 [facility] [place] [address] Julien Luevano PA [address] [address] Encounter for other general examination [...] AM EDT) WBC 8.9 4.8 - 10.8 K/[facility] LAB HEMETOLOGY METHOD 11/23/2024 11:24 AM [facility] LAB RBC 3.00(L) 3.80 - 4.80 M/mcL LAB HEMETOLOGY METHOD 11/23/2024 11:24 AM [facility] LAB Hemoglobin 8.9(L) 11.5 - 16.0 g/dL LAB HEMETOLOGY METHOD 11/23/2024 11:24 AM [facility] LAB Hematocrit 28.3(L) 35.0 - 47.0 % LAB HEMETOLOGY METHOD 11/23/2024 11:24 AM [facility] LAB MCV 93.7 79.0 - 98.0 FL LAB HEMETOLOGY METHOD 11/23/2024 11:24 AM [facility] LAB MCH 29.5 27.0 - 32.0 pcg LAB HEMETOLOGY METHOD 11/23/2024 11:24 AM [facility] LAB MCHC 31.4(L) 32.0 - 37.0 g/dL LAB HEMETOLOGY METHOD 11/23/2024 11:24 AM [facility] LAB RDW 16.8(H) 11.0 - 15.0 % LAB HEMETOLOGY METHOD 11/23/2024 11:24 AM [facility] LAB Platelets 136 130 - 400 K/mcL LAB HEMETOLOGY METHOD 11/23/2024 11:24 AM [facility] LAB MPV 10.5 7.0 - 11.0 FL LAB HEMETOLOGY METHOD 11/23/2024 11:24 AM [facility] LAB NRBC 0.0 <1.0 % LAB HEMETOLOGY METHOD 11/23/2024 11:24 AM [facility] LAB NRBC Absolute 0.00 <0.10 K/mcL LAB HEMETOLOGY METHOD 11/23/2024 11:24 AM [facility] LAB Blood Venous blood specimen / Unknown Venipuncture / Unknown 11/23/2024 7:50 AM EDT 11/23/2024 10:45 AM EDT us Julien GALLEGOS LAB BLOOD ORDERABLES Final R esult [facility] [address] [place] [address], [place] [phone] * (ABNORMAL) Comprehensive metabolic panel (11/23/2024 7:50 AM EDT) Pathologist [facility] Sodium 134 133 - 145 mmol/L LAB CHEMISTRY METHOD 11/23/2024 12:01 PM [facility] LAB Potassium 4.0 3.5 - 5.5 mmol/L LAB CHEMISTRY METHOD 11/23/2024 12:01 PM [facility] LAB Chloride 102 96 - 110 mmol/L LAB CHEMISTRY METHOD 11/23/2024 12:01 PM [facility] LAB CO2 27 21 - 32 mmol/L LAB CHEMISTRY METHOD 11/23/2024 12:01 PM [facility] LAB Anion Gap 5 3 - 11 LAB CHEMISTRY METHOD 11/23/2024 12:01 PM [facility] LAB Glucose 85 70 - 100 mg/dL LAB CHEMISTRY METHOD 11/23/2024 12:01 PM [facility] LAB BUN 19 5 - 25 mg/dL LAB CHEMISTRY METHOD 11/23/2024 12:01 PM [facility] LAB Creatinine 0.78 0.50 - 1.10 mg/dL LAB CHEMISTRY METHOD 11/23/2024 12:01 PM [facility] LAB eGFR 84 >=60 mL/min/1. 73m2 LAB CHEMISTRY METHOD 11/23/2024 12:01 PM [facility] LAB Comment:Calculation based on the Chronic Kidney Disease Epidemiology Collaboration (CKD-EPI) equation refit without adjustment for race. BUN/Creatinine Ratio 24.4 LAB CHEMISTRY METHOD 11/23/2024 12:01 PM EDT [facility] LAB Calcium 8.2(L) 8.5 - 10.5 mg/dL LAB CHEMISTRY METHOD 11/23/2024 12:01 PM [facility] LAB AST (SGOT) 50(H) 10 - 42 unit/L LAB CHEMISTRY METHOD 11/23/2024 12:01 PM [facility] LAB ALT (SGPT) 40 10 - 60 unit/L LAB CHEMISTRY METHOD 11/23/2024 12:01 PM [facility] LAB Alkaline Phosphatase 98 42 - 121 unit/L LAB CHEMISTRY METHOD 11/23/2024 12:01 PM [facility] LAB Total Protein 4.9(L) 6.0 - 8.0 g/dL LAB CHEMISTRY METHOD 11/23/2024 12:01 PM [facility] LAB Albumin 2.3(L) 3.2 - 5.0 g/dL LAB CHEMISTRY METHOD 11/23/2024 12:01 PM [facility] LAB Total Bilirubin 2.9(H) 0.0 - 1.4 mg/dL LAB CHEMISTRY METHOD 11/23/2024 12:01 PM [facility] LAB Blood Venous blood specimen / Unknown Venipuncture / Unknown 11/23/2024 7:50 AM EDT 11/23/2024 10:45 AM EDT us Julien GALLEGOS LAB BLOOD ORDERABLES Final R esult [facility] [address] [place] [address], documented in this encounter Visit Diagnoses Diagnosis Encounter for other general examination documented in this encounter Care Teams Application Counselor Relationship Specialty Start Date End Date Citlalli Reilly MD [address] [place] [address] PCP - General Internal Medicine 11/26/24 documented as of this encounter
--- OUTSIDE RECORDS SUMMARY | 2024-12-22 12:41 | XMS_ITS | Encounter Summary ---
Author Organization [facility] Address [address] [place] [address] Care Team Providers Care Structured Cabling Technician Name Role Phone Citlalli Reilly MD Primary Care Provider [phone] Encounter Details Date Type Department Care Team (Late st Contact Info) Description 12/03/2024 Lab Requisition [facility] - Main Lab [address] [facility] [place] [address] Breann Noland PA [address] [place] [phone] Encounter for other general examination Social History [...] Complete blood count (12/03/2024 6:30 AM EDT) [facility] Signature WBC 6.7 4.8 - 10.8 K/[facility] LAB HEMETOLOGY METHOD 12/03/2024 8:08 AM EDT [facility] ([facility] LAB RBC 2.70(L) 3.80 - 4.80 /[facility] LAB HEMETOLOGY METHOD 12/03/2024 8:08 AM [facility] LAB Hemoglobin 7.7(L) 11.5 - 16.0 g/dL LAB HEMETOLOGY METHOD 12/03/2024 8:08 AM [facility] LAB Hematocrit 24.6(L) 35.0 - 47.0 % LAB HEMETOLOGY METHOD 12/03/2024 8:08 AM [facility] LAB MCV 90.8 79.0 - 98.0 FL LAB HEMETOLOGY METHOD 12/03/2024 8:08 AM [facility] LAB MCH 28.4 27.0 - 32.0 pcg LAB HEMETOLOGY METHOD 12/03/2024 8:08 AM [facility] LAB MCHC 31.3(L) 32.0 - 37.0 g/dL LAB HEMETOLOGY METHOD 12/03/2024 8:08 AM [facility] LAB RDW 16.4(H) 11.0 - 15.0 % LAB HEMETOLOGY METHOD 12/03/2024 8:08 AM [facility] LAB Platelets 132 130 - 400 K/mcL LAB HEMETOLOGY METHOD 12/03/2024 8:08 AM [facility] LAB MPV 10.0 7.0 - 11.0 FL LAB HEMETOLOGY METHOD 12/03/2024 8:08 AM [facility] LAB NRBC 0.0 <1.0 % LAB HEMETOLOGY METHOD 12/03/2024 8:08 AM [facility] LAB NRBC Absolute 0.00 <0.10 K/mcL LAB HEMETOLOGY METHOD 12/03/2024 8:08 AM [facility] LAB Blood Venous blood specimen / Unknown Venipuncture / Unknown 12/03/2024 6:30 AM EDT 12/03/2024 7:46 AM EDT us Breann GALLEGOS LAB BLOOD ORDERABLES Final [facility]ul t [facility] LAB [address] [place] [address], documented in this encounter Visit Diagnoses Diagnosis Encounter for other general examination documented in this encounter Care Teams Structured Cabling Technician Relationship Specialty Start Date End Date Citlalli Reilly MD [address] [place] [address] PCP - General Internal Medicine 11/26/24 documented as of this encounter
--- OUTSIDE RECORDS SUMMARY | 2024-12-22 12:41 | XMS_ITS | Encounter Summary ---
Author Organization [facility] Address [address] [place] [address] Care Team Providers Care Geology Scientist Name Role Phone Citlalli Reilly MD Primary Care Provider [phone] Encounter Details Date Type Department Care Team (Late st Contact Info) Description 11/29/2024 Lab Requisition [facility] - Main Lab 299 [facility] [place] [address] Julien Luevano PA [address] [address] Encounter for other general [...] LAB CHEMISTRY METHOD 11/29/2024 12:57 PM EDT [facility] LAB Potassium 3.4(L) 3.5 - 5.5 mmol/L LAB CHEMISTRY METHOD 11/29/2024 12:57 PM [facility] LAB Chloride 96 96 - 110 mmol/L LAB CHEMISTRY METHOD 11/29/2024 12:57 PM [facility] LAB CO2 32 21 - 32 mmol/L LAB CHEMISTRY METHOD 11/29/2024 12:57 PM [facility] LAB Anion Gap 8 3 - 11 LAB CHEMISTRY METHOD 11/29/2024 12:57 PM [facility] LAB Glucose 111(H) 70 - 100 mg/dL LAB CHEMISTRY METHOD 11/29/2024 12:57 PM [facility] LAB BUN 20 5 - 25 mg/dL LAB CHEMISTRY METHOD 11/29/2024 12:57 PM [facility] LAB Creatinine 1.03 0.50 - 1.10 mg/dL LAB CHEMISTRY METHOD 11/29/2024 12:57 PM [facility] LAB eGFR 60 >=60 mL/min/1. 73m2 LAB CHEMISTRY METHOD 11/29/2024 12:57 PM [facility] LAB Comment:Calculation based on the Chronic Kidney Disease Epidemiology Collaboration (CKD-EPI) equation refit without adjustment for race. BUN/Creatinine Ratio 19.4 LAB CHEMISTRY METHOD 11/29/2024 12:57 PM [facility] LAB Calcium 8.5 8.5 - 10.5 mg/dL LAB CHEMISTRY METHOD 11/29/2024 12:57 PM [facility] LAB Blood Venous blood specimen / Unknown Venipuncture / Unknown 11/29/2024 8:00 AM EDT 11/29/2024 11:28 AM EDT us Julien GALLEGOS LAB BLOOD ORDERABLES Final R esult [facility] [address] [place] [address], documented in this encounter Visit Diagnoses Diagnosis Encounter for other general examination documented in this encounter Care Teams Geology Scientist Relationship Specialty Start Date End Date Citlalli Reilly MD [address] [place] [address] PCP - General Internal Medicine 11/26/24 documented as of this encounter
[2024-12-22 14:22] LABS: MANUAL DIFF FLAG NO
[2024-12-22 14:28] LABS: White Blood Count 8.9 X10*3/uL (4.8-10.8)
[2024-12-22 14:29] LABS: Hematocrit 27.0 % (37.0-47.0); Hemoglobin 8.2 g/dl (12.0-16.0); Imm Gran Abs Auto 0.03 X10*3/uL (0.00-0.03); Imm Gran Pct Auto 0.3 % (0.0-0.4); Lymphocytes Absolute Auto 2.7 X10*3/uL (1.2-4.9); Mean Corpuscular HGB Conc 30.4 g/dl (31.0-35.0); Mean Corpuscular Hemoglobin 26.7 pg (27.0-33.0); Mean Corpuscular Volume 87.9 fL (80.0-98.0); NRBC Abs Auto 0.000 X10*3/uL (0.0-0.012); NRBC Pct Auto 0.0 /100WBC (0.0-0.2); Platelet Count 181 X10*3/uL (160-400); Red Blood Count 3.07 X10*6/uL (4.20-5.50)
[2024-12-22 15:08] LABS: Alanine Aminotransferase 16 U/L (0-31); Albumin Level 2.7 g/dL (3.5-5.0); Alkaline Phosphatase 104 U/L (39-117); Anion Gap 14 (12-20); Aspartate Amino Transferase 40 U/L (5-31); Blood Urea Nitrogen 15 mg/dL (9-16); Calcium 8.5 mg/dL (8.4-10.2); Carbon Dioxide 26 mmol/L (22-29); Chloride 101 mmol/L (96-108); Estimated Glomerular Filt Rate 42; Potassium 4.0 mmol/L (3.3-5.1); Sodium 137 mmol/L (135-145); Total Protein 5.4 g/dL (6.5-8.0)
== END 2024-12-22 11:59 | disposition home or self-care (01) ==
LOC: HO.WFDLDS 11:58
PROVIDERS: Visit Provider Internal Medicine
DX: Z09 Encounter for follow-up examination after completed treatment for conditions other than malignant neoplasm (principal); I25.10 Atherosclerotic heart disease of native coronary artery without angina pectoris; E03.9 Hypothyroidism, unspecified
CPT/HCPCS: 36415; 80053; 84443; 85025

== ENCOUNTER 2024-12-26 08:31 | Outpatient (REF) | payer BC, SELFPAY ==
--- OUTSIDE RECORDS SUMMARY | 2024-12-27 09:50 | XMS_ITS | Encounter Summary ---
Author Organization [facility] Address [address] [place] [address] Care Team Providers Care Pattern Molder Name Role Phone Citlalli Reilly MD Primary Care Provider [phone] Encounter Details Date Type Department Care Team (Late st Contact Info) Description 11/18/2024 Lab Requisition [facility] - Main Lab 299 [facility] [place] [address] Breann Noland PA [address] [place] [phone] Encounter for other general examination Social History [...] CBC auto differential (11/18/2024 6:00 AM EDT) [facility] WBC 9.7 4.8 - 10.8 K/mcL LAB HEMETOLOGY METHOD 11/18/2024 9:19 AM [facility] LAB RBC 3.10(L) 3.80 - 4.80 M/mcL LAB HEMETOLOGY METHOD 11/18/2024 9:19 AM [facility] LAB Hemoglobin 9.2(L) 11.5 - 16.0 g/dL LAB HEMETOLOGY METHOD 11/18/2024 9:19 AM [facility] LAB Hematocrit 29.7(L) 35.0 - 47.0 % LAB HEMETOLOGY METHOD 11/18/2024 9:19 AM [facility] LAB MCV 96.7 79.0 - 98.0 FL LAB HEMETOLOGY METHOD 11/18/2024 9:19 AM [facility] LAB MCH 30.0 27.0 - 32.0 pcg LAB HEMETOLOGY METHOD 11/18/2024 9:19 AM [facility] LAB MCHC 31.0(L) 32.0 - 37.0 g/dL LAB HEMETOLOGY METHOD 11/18/2024 9:19 AM [facility] LAB RDW 16.9(H) 11.0 - 15.0 % LAB HEMETOLOGY METHOD 11/18/2024 9:19 AM [facility] LAB Platelets 143 130 - 400 K/mcL LAB HEMETOLOGY METHOD 11/18/2024 9:19 AM [facility] LAB MPV 10.2 7.0 - 11.0 FL LAB HEMETOLOGY METHOD 11/18/2024 9:19 AM [facility] LAB NRBC 0.0 <1.0 % LAB HEMETOLOGY METHOD 11/18/2024 9:19 AM [facility] LAB NRBC Absolute 0.00 <0.10 K/mcL LAB HEMETOLOGY METHOD 11/18/2024 9:19 AM [facility] LAB Neutrophils Relative 69.6 % LAB HEMETOLOGY METHOD 11/18/2024 9:19 AM [facility] LAB Lymphocytes Relative 16.4 % LAB HEMETOLOGY METHOD 11/18/2024 9:19 AM [facility] LAB Monocytes Relative 10.0 % LAB HEMETOLOGY METHOD 11/18/2024 9:19 AM [facility] LAB Eosinophils Relative 2.6 % LAB HEMETOLOGY METHOD 11/18/2024 9:19 AM [facility] LAB Basophils Relative 0.6 % LAB HEMETOLOGY METHOD 11/18/2024 9:19 AM [facility] LAB Immature Granulocytes Relative 0.8 % LAB HEMETOLOGY METHOD 11/18/2024 9:19 AM [facility] LAB Neutrophils Absolute 6.77 1.50 - 7.00 K/mcL LAB HEMETOLOGY METHOD 11/18/2024 9:19 AM [facility] LAB Lymphocytes Absolute 1.60 1.00 - 5.00 K/mcL LAB HEMETOLOGY METHOD 11/18/2024 9:19 AM [facility] LAB Monocytes Absolute 0.97 0.20 - 1.00 K/mcL LAB HEMETOLOGY METHOD 11/18/2024 9:19 AM [facility] LAB Eosinophils Absolute 0.25 0.00 - 0.50 K/mcL LAB HEMETOLOGY METHOD 11/18/2024 9:19 AM [facility] LAB Basophils Absolute 0.06 0.00 - 0.20 K/mcL LAB HEMETOLOGY METHOD 11/18/2024 9:19 AM [facility] LAB Immature Granulocytes Absolute 0.08(H) 0.00 - 0.03 K/mcL LAB HEMETOLOGY METHOD 11/18/2024 9:19 AM EDT [facility] LAB Blood Venous blood specimen / Unknown Venipuncture / Unknown 11/18/2024 6:00 AM EDT 11/18/2024 8:36 AM EDT Breann GALLEGOS LAB BLOOD ORDERABLES Final Resul t Performing Organization Address City/[facility]/ZIP Co de Phone Number [facility] [address] [place] [address], [place] [phone] * Magnesium (11/18/2024 6:00 AM EDT) Pathologist [facility] Magnesium 1.9 1.9 - 2.6 mg/dL LAB CHEMISTRY METHOD 11/18/2024 9:35 AM EDT [facility] Blood Venous blood specimen / Unknown Venipuncture / Unknown 11/18/2024 6:00 AM EDT 11/18/2024 8:36 AM EDT Breann GALLEGOS LAB BLOOD ORDERABLES Final Resul t Performing Organization Address [facility]/ZIP Co de Phone Number [facility] [address] [place] [address], [place] [phone] * (ABNORMAL) Comprehensive metabolic panel (11/18/2024 6:00 AM EDT) Sodium 137 133 - 145 mmol/L LAB CHEMISTRY METHOD 11/18/2024 9:35 AM EDT [facility] Potassium 3.8 3.5 - 5.5 mmol/L LAB CHEMISTRY METHOD 11/18/2024 9:35 AM EDT [facility] Chloride 104 96 - 110 mmol/L LAB CHEMISTRY METHOD 11/18/2024 9:35 AM EDT [facility] LAB CO2 26 21 - 32 mmol/L LAB CHEMISTRY METHOD 11/18/2024 9:35 AM EDT [facility] Anion Gap 7 3 - 11 LAB CHEMISTRY METHOD 11/18/2024 9:35 AM [facility] LAB Glucose 102(H) 70 - 100 mg/dL LAB CHEMISTRY METHOD 11/18/2024 9:35 AM [facility] LAB BUN 16 5 - 25 mg/dL LAB CHEMISTRY METHOD 11/18/2024 9:35 AM [facility] LAB Creatinine 0.60 0.50 - 1.10 mg/dL LAB CHEMISTRY METHOD 11/18/2024 9:35 AM [facility] LAB eGFR 100 >=60 mL/min/1. 73m2 LAB CHEMISTRY METHOD 11/18/2024 9:35 AM [facility] LAB Comment:Calculation based on the Chronic Kidney Disease Epidemiology Collaboration (CKD-EPI) equation refit without adjustment for race. BUN/Creatinine Ratio 26.7 LAB CHEMISTRY METHOD 11/18/2024 9:35 AM [facility] LAB Calcium 7.9(L) 8.5 - 10.5 mg/dL LAB CHEMISTRY METHOD 11/18/2024 9:35 AM [facility] LAB AST (SGOT) 50(H) 10 - 42 unit/L LAB CHEMISTRY METHOD 11/18/2024 9:35 AM [facility] LAB ALT (SGPT) 44 10 - 60 unit/L LAB CHEMISTRY METHOD 11/18/2024 9:35 AM [facility] LAB Alkaline Phosphatase 79 42 - 121 unit/L LAB CHEMISTRY METHOD 11/18/2024 9:35 AM [facility] LAB Total Protein 4.9(L) 6.0 - 8.0 g/dL LAB CHEMISTRY METHOD 11/18/2024 9:35 AM [facility] LAB Albumin 2.6(L) 3.2 - 5.0 g/dL LAB CHEMISTRY METHOD 11/18/2024 9:35 AM [facility] LAB Total Bilirubin 2.8(H) 0.0 - 1.4 mg/dL LAB CHEMISTRY METHOD 11/18/2024 9:35 AM EDT [facility] Blood Venous blood specimen / Unknown Venipuncture / Unknown 11/18/2024 6:00 AM EDT 11/18/2024 8:36 AM EDT us Breann GALLEGOS LAB BLOOD ORDERABLES Final Resul t [facility] [address] [place] [address], documented in this encounter Visit Diagnoses Diagnosis Encounter for other general examination documented in this encounter Care Teams Pattern Molder Relationship Specialty Start Date End Date Citlalli Reilly MD [address] [place] [address] PCP - General Internal Medicine 11/26/24 documented as of this encounter
--- OUTSIDE RECORDS SUMMARY | 2024-12-27 09:50 | XMS_ITS | Encounter Summary ---
Author Organization [facility] Address [address] [place] [address] Care Team Providers Care Clinical Research Administrator Name Role Phone Citlalli Reilly MD Primary Care Provider [phone] Encounter Details Date Type Department Care Team (Late st Contact Info) Description 12/02/2024 Lab Requisition [facility] - Main Lab 299 [facility] [employer] [address] Breann Noland PA [address] [place] [address] Encounter for other general examination Social History [...] LAB CHEMISTRY METHOD 12/02/2024 10:41 AM EDT [facility] ([facility] LAB Potassium 3.6 3.5 - 5.5 mmol/L LAB CHEMISTRY METHOD 12/02/2024 10:41 AM [facility] LAB Chloride 100 96 - 110 mmol/L LAB CHEMISTRY METHOD 12/02/2024 10:41 AM [facility] LAB CO2 33(H) 21 - 32 mmol/L LAB CHEMISTRY METHOD 12/02/2024 10:41 AM [facility] LAB Anion Gap 3 3 - 11 LAB CHEMISTRY METHOD 12/02/2024 10:41 AM [facility] LAB Glucose 86 70 - 100 mg/dL LAB CHEMISTRY METHOD 12/02/2024 10:41 AM [facility] LAB BUN 18 5 - 25 mg/dL LAB CHEMISTRY METHOD 12/02/2024 10:41 AM [facility] LAB Creatinine 0.99 0.50 - 1.10 mg/dL LAB CHEMISTRY METHOD 12/02/2024 10:41 AM [facility] LAB eGFR 63 >=60 mL/min/1. 73m2 LAB CHEMISTRY METHOD 12/02/2024 10:41 AM [facility] LAB Comment:Calculation based on the Chronic Kidney Disease Epidemiology Collaboration (CKD-EPI) equation refit without adjustment for race. BUN/Creatinine Ratio 18.2 LAB CHEMISTRY METHOD 12/02/2024 10:41 AM [facility] LAB Calcium 8.5 8.5 - 10.5 mg/dL LAB CHEMISTRY METHOD 12/02/2024 10:41 AM [facility] LAB AST (SGOT) 44(H) 10 - 42 unit/L LAB CHEMISTRY METHOD 12/02/2024 10:41 AM [facility] LAB ALT (SGPT) 32 10 - 60 unit/L LAB CHEMISTRY METHOD 12/02/2024 10:41 AM [facility] LAB Alkaline Phosphatase 97 42 - 121 unit/L LAB CHEMISTRY METHOD 12/02/2024 10:41 AM [facility] Total Protein 4.5(L) 6.0 - 8.0 g/dL LAB CHEMISTRY METHOD 12/02/2024 10:41 AM EDT [facility] Albumin 2.3(L) 3.2 - 5.0 g/dL LAB CHEMISTRY METHOD 12/02/2024 10:41 AM EDT [facility] Total Bilirubin 2.4(H) 0.0 - 1.4 mg/dL LAB CHEMISTRY METHOD 12/02/2024 10:41 AM EDT [facility] LAB Blood Venous blood specimen / Unknown Venipuncture / Unknown 12/02/2024 5:00 AM EDT 12/02/2024 9:15 AM EDT us Breann GALLEGOS LAB BLOOD ORDERABLES Final Resul t [facility] [address] [place] [address], * (ABNORMAL) Complete blood count (12/02/2024 5:00 AM EDT) WBC 6.4 4.8 - 10.8 K/mcL LAB HEMETOLOGY METHOD 12/02/2024 10:11 AM [facility] RBC 2.60(L) 3.80 - 4.80 M/mcL LAB HEMETOLOGY METHOD 12/02/2024 10:11 AM [facility] Hemoglobin 7.3(L) 11.5 - 16.0 g/dL LAB HEMETOLOGY METHOD 12/02/2024 10:11 AM [facility] LAB Hematocrit 23.6(L) 35.0 - 47.0 % LAB HEMETOLOGY METHOD 12/02/2024 10:11 AM [facility] LAB MCV 91.5 79.0 - 98.0 FL LAB HEMETOLOGY METHOD 12/02/2024 10:11 AM T [facility] MCH 28.3 27.0 - 32.0 pcg LAB HEMETOLOGY METHOD 12/02/2024 10:11 AM EDT [facility] MCHC 30.9(L) 32.0 - 37.0 g/dL LAB HEMETOLOGY METHOD 12/02/2024 10:11 AM EDT [facility] RDW 16.4(H) 11.0 - 15.0 % LAB HEMETOLOGY METHOD 12/02/2024 10:11 AM EDT [facility] Platelets 115(L) 130 - 400 K/mcL LAB HEMETOLOGY METHOD 12/02/2024 10:11 AM EDT [facility] MPV 9.8 7.0 - 11.0 FL LAB HEMETOLOGY METHOD 12/02/2024 10:11 AM EDT [facility] NRBC 0.0 <1.0 % LAB HEMETOLOGY METHOD 12/02/2024 10:11 AM EDT [facility] NRBC Absolute 0.00 <0.10 K/mcL LAB HEMETOLOGY METHOD 12/02/2024 10:11 AM T [facility] LAB Blood Venous blood specimen / Unknown Venipuncture / Unknown 12/02/2024 5:00 AM EDT 12/02/2024 9:15 AM EDT us Breann GALLEGOS LAB BLOOD ORDERABLES Final Resul t [facility] [address] [place] [address], documented in this encounter Visit Diagnoses Diagnosis Encounter for other general examination documented in this encounter Care Teams Clinical Research Administrator Relationship Specialty Start Date End Date Citlalli Reilly MD [address] [place] [phone] PCP - General Internal Medicine 11/26/24 documented as of this encounter
--- OUTSIDE RECORDS SUMMARY | 2024-12-27 09:50 | XMS_ITS | Encounter Summary ---
Author Organization [facility] Address [address] [place] [address] Care Team Providers Care Juice Standardizer Name Role Phone Citlalli Reilly MD Primary Care Provider [phone] Encounter Details Date Type Department Care Team (Late st Contact Info) Description 12/03/2024 Lab Requisition [facility] - Main Lab 299 [facility] [place] [address] Breann Noland PA [address] [place] [phone] Encounter for other general examination Social History [...] Complete blood count (12/03/2024 6:30 AM EDT) [facility] Signature WBC 6.7 4.8 - 10.8 K/[facility] LAB HEMETOLOGY METHOD 12/03/2024 8:08 AM EDT [facility] ([facility] RBC 2.70(L) 3.80 - 4.80 /[facility] LAB HEMETOLOGY METHOD 12/03/2024 8:[address] [facility] LAB Hemoglobin 7.7(L) 11.5 - 16.0 g/dL LAB HEMETOLOGY METHOD 12/03/2024 8:[address] [facility] LAB Hematocrit 24.6(L) 35.0 - 47.0 % LAB HEMETOLOGY METHOD 12/03/2024 8:[address] [facility] LAB MCV 90.8 79.0 - 98.0 FL LAB HEMETOLOGY METHOD 12/03/2024 8:[address] [facility] LAB MCH 28.4 27.0 - 32.0 pcg LAB HEMETOLOGY METHOD 12/03/2024 8:[address] [facility] LAB MCHC 31.3(L) 32.0 - 37.0 g/dL LAB HEMETOLOGY METHOD 12/03/2024 8:[address] [facility] LAB RDW 16.4(H) 11.0 - 15.0 % LAB HEMETOLOGY METHOD 12/03/2024 8:[address] [facility] LAB Platelets 132 130 - 400 K/mcL LAB HEMETOLOGY METHOD 12/03/2024 8:[address] [facility] LAB MPV 10.0 7.0 - 11.0 FL LAB HEMETOLOGY METHOD 12/03/2024 8:[address] [facility] LAB NRBC 0.0 <1.0 % LAB HEMETOLOGY METHOD 12/03/2024 8:[address] [facility] LAB NRBC Absolute 0.00 <0.10 K/mcL LAB HEMETOLOGY METHOD 12/03/2024 8:[address] [facility] LAB Blood Venous blood specimen / Unknown Venipuncture / Unknown 12/03/2024 6:30 AM EDT 12/03/2024 7:46 AM EDT us Breann GALLEGOS LAB BLOOD ORDERABLES Final [facility]ul [facility] LAB [address] [place] [address], documented in this encounter Visit Diagnoses Diagnosis Encounter for other general examination documented in this encounter Care Teams Juice Standardizer Relationship Specialty Start Date End Date Citlalli Reilly MD [address] [place] [address] PCP - General Internal Medicine 11/26/24 documented as of this encounter
--- OUTSIDE RECORDS SUMMARY | 2024-12-27 09:50 | XMS_ITS | Encounter Summary ---
Author Organization [facility] Address [address] [place] [address] Care Team Providers Care Customs Opener Verifier Packer Name Role Phone Citlalli Reilly MD Primary Care Provider [phone] Encounter Details Date Type Department Care Team (Late st Contact Info) Description 11/26/2024 Lab Requisition [facility] - Main Lab [address] [facility] [place] [address] Breann Noland PA [address] [place] [address] Encounter for other general examination Social History [...] LAB CHEMISTRY METHOD 11/26/2024 11:34 AM EDT [facility] LAB Potassium 3.0(L) 3.5 - 5.5 mmol/L LAB CHEMISTRY METHOD 11/26/2024 11:34 AM [facility] LAB Chloride 97 96 - 110 mmol/L LAB CHEMISTRY METHOD 11/26/2024 11:34 AM [facility] LAB CO2 33(H) 21 - 32 mmol/L LAB CHEMISTRY METHOD 11/26/2024 11:34 AM [facility] LAB Anion Gap 8 3 - 11 LAB CHEMISTRY METHOD 11/26/2024 11:34 AM [facility] LAB Glucose 93 70 - 100 mg/dL LAB CHEMISTRY METHOD 11/26/2024 11:34 AM [facility] LAB BUN 19 5 - 25 mg/dL LAB CHEMISTRY METHOD 11/26/2024 11:34 AM [facility] LAB Creatinine 0.83 0.50 - 1.10 mg/dL LAB CHEMISTRY METHOD 11/26/2024 11:34 AM [facility] LAB eGFR 78 >=60 mL/min/1. 73m2 LAB CHEMISTRY METHOD 11/26/2024 11:34 AM [facility] LAB Comment:Calculation based on the Chronic Kidney Disease Epidemiology Collaboration (CKD-EPI) equation refit without adjustment for race. BUN/Creatinine Ratio 22.9 LAB CHEMISTRY METHOD 11/26/2024 11:34 AM [facility] LAB Calcium 8.0(L) 8.5 - 10.5 mg/dL LAB CHEMISTRY METHOD 11/26/2024 11:34 AM [facility] LAB AST (SGOT) 41 10 - 42 unit/L LAB CHEMISTRY METHOD 11/26/2024 11:34 AM [facility] LAB ALT (SGPT) 28 10 - 60 unit/L LAB CHEMISTRY METHOD 11/26/2024 11:34 AM [facility] LAB Alkaline Phosphatase 104 42 - 121 unit/L LAB CHEMISTRY METHOD 11/26/2024 11:34 AM [facility] LAB Total Protein 4.8(L) 6.0 - 8.0 g/dL LAB CHEMISTRY METHOD 11/26/2024 11:34 AM EDT [facility] LAB Albumin 2.3(L) 3.2 - 5.0 g/dL LAB CHEMISTRY METHOD 11/26/2024 11:34 AM EDT [facility] LAB Total Bilirubin 3.0(H) 0.0 - 1.4 mg/dL LAB CHEMISTRY METHOD 11/26/2024 11:34 AM EDT [facility] LAB Blood Venous blood specimen / Unknown 11/26/2024 7:14 AM EDT 11/26/2024 10:44 AM EDT us Breann GALLEGOS LAB BLOOD ORDERABLES Final Resul t [facility] [address] [place] [address], documented in this encounter Visit Diagnoses Diagnosis Encounter for other general examination documented in this encounter Care Teams Customs Opener Verifier Packer Relationship Specialty Start Date End Date Citlalli Reilly MD [address] [place] [address] PCP - General Internal Medicine 11/26/24 documented as of this encounter
--- OUTSIDE RECORDS SUMMARY | 2024-12-27 09:50 | XMS_ITS | Clinical Summary ---
Author Organization [facility] Address [address] [place] [address] Care Team Providers Care Component Design Engineer Name Role Phone Citlalli Reilly MD Primary Care Provider [phone] Allergies Active Allergy Reactions Criticality Noted Date [...] Billing Address Personal/Family Self 1960 [address] [place] [address] [facility] * Guarantor: Adrienne Amaya Account Type Relation to Patient Date of Phone Billing Address Personal/Family Self 1960 [address] [place] [address] [facility] Care Teams Component Design Engineer Relationship Specialty Start Date End Date Citlalli Reilly MD [address] [place] [id number] PCP - General Internal Medicine 12/22/22
--- OUTSIDE RECORDS SUMMARY | 2024-12-27 09:50 | XMS_ITS | Encounter Summary ---
Author Organization [facility] Address [address] [place] [address] Care Team Providers Care Bulk Intake Worker Name Role Phone Citlalli Reilly MD Primary Care Provider [phone] Encounter Details Date Type Department Care Team (Late st Contact Info) Description 11/23/2024 Lab Requisition [facility] - Main Lab 299 [facility] [place] [address] Julien Luevano PA [address] [address] Encounter for other general examination [...] AM EDT) WBC 8.9 4.8 - 10.8 K/[facility] LAB HEMETOLOGY METHOD 11/23/2024 11:24 AM [facility] LAB RBC 3.00(L) 3.80 - 4.80 M/mcL LAB HEMETOLOGY METHOD 11/23/2024 11:24 AM [facility] LAB Hemoglobin 8.9(L) 11.5 - 16.0 g/dL LAB HEMETOLOGY METHOD 11/23/2024 11:24 AM [facility] LAB Hematocrit 28.3(L) 35.0 - 47.0 % LAB HEMETOLOGY METHOD 11/23/2024 11:24 AM [facility] LAB MCV 93.7 79.0 - 98.0 FL LAB HEMETOLOGY METHOD 11/23/2024 11:24 AM [facility] LAB MCH 29.5 27.0 - 32.0 pcg LAB HEMETOLOGY METHOD 11/23/2024 11:24 AM [facility] LAB MCHC 31.4(L) 32.0 - 37.0 g/dL LAB HEMETOLOGY METHOD 11/23/2024 11:24 AM [facility] LAB RDW 16.8(H) 11.0 - 15.0 % LAB HEMETOLOGY METHOD 11/23/2024 11:24 AM [facility] LAB Platelets 136 130 - 400 K/mcL LAB HEMETOLOGY METHOD 11/23/2024 11:24 AM [facility] LAB MPV 10.5 7.0 - 11.0 FL LAB HEMETOLOGY METHOD 11/23/2024 11:24 AM [facility] LAB NRBC 0.0 <1.0 % LAB HEMETOLOGY METHOD 11/23/2024 11:24 AM [facility] LAB NRBC Absolute 0.00 <0.10 K/mcL LAB HEMETOLOGY METHOD 11/23/2024 11:24 AM [facility] LAB Blood Venous blood specimen / Unknown Venipuncture / Unknown 11/23/2024 7:50 AM EDT 11/23/2024 10:45 AM EDT us Julien GALLEGOS LAB BLOOD ORDERABLES Final R esult [facility] LAB [address] [place] [address], [place] [phone] * (ABNORMAL) Comprehensive metabolic panel (11/23/2024 7:50 AM EDT) Pathologist [facility] Sodium 134 133 - 145 mmol/L LAB CHEMISTRY METHOD 11/23/2024 12:01 PM [facility] LAB Potassium 4.0 3.5 - 5.5 mmol/L LAB CHEMISTRY METHOD 11/23/2024 12:01 PM [facility] LAB Chloride 102 96 - 110 mmol/L LAB CHEMISTRY METHOD 11/23/2024 12:01 PM [facility] LAB CO2 27 21 - 32 mmol/L LAB CHEMISTRY METHOD 11/23/2024 12:01 PM [facility] LAB Anion Gap 5 3 - 11 LAB CHEMISTRY METHOD 11/23/2024 12:01 PM [facility] LAB Glucose 85 70 - 100 mg/dL LAB CHEMISTRY METHOD 11/23/2024 12:01 PM [facility] LAB BUN 19 5 - 25 mg/dL LAB CHEMISTRY METHOD 11/23/2024 12:01 PM [facility] LAB Creatinine 0.78 0.50 - 1.10 mg/dL LAB CHEMISTRY METHOD 11/23/2024 12:01 PM [facility] LAB eGFR 84 >=60 mL/min/1. 73m2 LAB CHEMISTRY METHOD 11/23/2024 12:01 PM [facility] LAB Comment:Calculation based on the Chronic Kidney Disease Epidemiology Collaboration (CKD-EPI) equation refit without adjustment for race. BUN/Creatinine Ratio 24.4 LAB CHEMISTRY METHOD 11/23/2024 12:01 PM EDT [facility] LAB Calcium 8.2(L) 8.5 - 10.5 mg/dL LAB CHEMISTRY METHOD 11/23/2024 12:01 PM [facility] LAB AST (SGOT) 50(H) 10 - 42 unit/L LAB CHEMISTRY METHOD 11/23/2024 12:01 PM [facility] LAB ALT (SGPT) 40 10 - 60 unit/L LAB CHEMISTRY METHOD 11/23/2024 12:01 PM [facility] LAB Alkaline Phosphatase 98 42 - 121 unit/L LAB CHEMISTRY METHOD 11/23/2024 12:01 PM [facility] LAB Total Protein 4.9(L) 6.0 - 8.0 g/dL LAB CHEMISTRY METHOD 11/23/2024 12:01 PM [facility] LAB Albumin 2.3(L) 3.2 - 5.0 g/dL LAB CHEMISTRY METHOD 11/23/2024 12:01 PM [facility] LAB Total Bilirubin 2.9(H) 0.0 - 1.4 mg/dL LAB CHEMISTRY METHOD 11/23/2024 12:01 PM [facility] LAB Blood Venous blood specimen / Unknown Venipuncture / Unknown 11/23/2024 7:50 AM EDT 11/23/2024 10:45 AM EDT us Julien GALLEGOS LAB BLOOD ORDERABLES Final R esult [facility] LAB [address] [place] [address], documented in this encounter Visit Diagnoses Diagnosis Encounter for other general examination documented in this encounter Care Teams Bulk Intake Worker Relationship Specialty Start Date End Date Citlalli Reilly MD [address] [place] [address] PCP - General Internal Medicine 11/26/24 documented as of this encounter
--- OUTSIDE RECORDS SUMMARY | 2024-12-27 09:50 | XMS_ITS | Encounter Summary ---
Author Organization [facility] Address [address] [place] [address] Care Team Providers Care History Department Chair Name Role Phone Citlalli Reilly MD Primary Care Provider [phone] Encounter Details Date Type Department Care Team (Late st Contact Info) Description 11/29/2024 Lab Requisition [facility] - Main Lab 299 [facility] [place] [address] Julien Luevano PA [address] [address] Encounter for other general examination [...] LAB CHEMISTRY METHOD 11/29/2024 12:57 PM EDT [facility] Potassium 3.4(L) 3.5 - 5.5 mmol/L LAB CHEMISTRY METHOD 11/29/2024 12:57 PM [facility] LAB Chloride 96 96 - 110 mmol/L LAB CHEMISTRY METHOD 11/29/2024 12:57 PM [facility] LAB CO2 32 21 - 32 mmol/L LAB CHEMISTRY METHOD 11/29/2024 12:57 PM [facility] LAB Anion Gap 8 3 - 11 LAB CHEMISTRY METHOD 11/29/2024 12:57 PM [facility] LAB Glucose 111(H) 70 - 100 mg/dL LAB CHEMISTRY METHOD 11/29/2024 12:57 PM [facility] LAB BUN 20 5 - 25 mg/dL LAB CHEMISTRY METHOD 11/29/2024 12:57 PM [facility] LAB Creatinine 1.03 0.50 - 1.10 mg/dL LAB CHEMISTRY METHOD 11/29/2024 12:57 PM [facility] LAB eGFR 60 >=60 mL/min/1. 73m2 LAB CHEMISTRY METHOD 11/29/2024 12:57 PM [facility] LAB Comment:Calculation based on the Chronic Kidney Disease Epidemiology Collaboration (CKD-EPI) equation refit without adjustment for race. BUN/Creatinine Ratio 19.4 LAB CHEMISTRY METHOD 11/29/2024 12:57 PM [facility] LAB Calcium 8.5 8.5 - 10.5 mg/dL LAB CHEMISTRY METHOD 11/29/2024 12:57 PM [facility] LAB Blood Venous blood specimen / Unknown Venipuncture / Unknown 11/29/2024 8:00 AM EDT 11/29/2024 11:28 AM EDT us Julien GALLEGOS LAB BLOOD ORDERABLES Final R esult [facility] [address] [place] [address], documented in this encounter Visit Diagnoses Diagnosis Encounter for other general examination documented in this encounter Care Teams History Department Chair Relationship Specialty Start Date End Date Citlalli Reilly MD [address] [place] [address] PCP - General Internal Medicine 11/26/24 documented as of this encounter
--- OUTSIDE RECORDS SUMMARY | 2024-12-27 09:50 | XMS_ITS | Encounter Summary ---
Author Organization [facility] Address [address] [place] [address] Care Team Providers Care Process Manager Name Role Phone Citlalli Reilly MD Primary Care Provider [phone] Encounter Details Date Type Department Care Team (Late st Contact Info) Description 11/30/2024 Lab Requisition [facility] - Main Lab 299 [facility] [employer] [place] [address] Julien Luevano PA [address] [address] Encounter for other general examination [...] AM EDT) WBC 8.2 4.8 - 10.8 K/[facility] LAB HEMETOLOGY METHOD 11/30/2024 10:41 AM [facility] LAB RBC 3.00(L) 3.80 - 4.80 M/mcL LAB HEMETOLOGY METHOD 11/30/2024 10:41 AM [facility] LAB Hemoglobin 8.7(L) 11.5 - 16.0 g/dL LAB HEMETOLOGY METHOD 11/30/2024 10:41 AM [facility] LAB Hematocrit 28.3(L) 35.0 - 47.0 % LAB HEMETOLOGY METHOD 11/30/2024 10:41 AM [facility] LAB MCV 93.1 79.0 - 98.0 FL LAB HEMETOLOGY METHOD 11/30/2024 10:41 AM [facility] LAB MCH 28.6 27.0 - 32.0 pcg LAB HEMETOLOGY METHOD 11/30/2024 10:41 AM [facility] LAB MCHC 30.7(L) 32.0 - 37.0 g/dL LAB HEMETOLOGY METHOD 11/30/2024 10:41 AM [facility] LAB RDW 16.4(H) 11.0 - 15.0 % LAB HEMETOLOGY METHOD 11/30/2024 10:41 AM [facility] LAB Platelets 168 130 - 400 K/mcL LAB HEMETOLOGY METHOD 11/30/2024 10:41 AM [facility] LAB MPV 10.1 7.0 - 11.0 FL LAB HEMETOLOGY METHOD 11/30/2024 10:41 AM [facility] LAB NRBC 0.0 <1.0 % LAB HEMETOLOGY METHOD 11/30/2024 10:41 AM [facility] LAB NRBC Absolute 0.00 <0.10 K/mcL LAB HEMETOLOGY METHOD 11/30/2024 10:41 AM [facility] LAB Blood Venous blood specimen / Unknown Venipuncture / Unknown 11/30/2024 7:57 AM EDT 11/30/2024 8:47 AM EDT us Julien GALLEGOS LAB BLOOD ORDERABLES Final R esult [facility] [address] [place] [address], [place] [phone] * (ABNORMAL) Basic metabolic panel (11/30/2024 7:57 AM EDT) Pathologist [facility] Sodium 134 133 - 145 mmol/L LAB CHEMISTRY METHOD 11/30/2024 11:47 AM [facility] LAB Potassium 3.5 3.5 - 5.5 mmol/L LAB CHEMISTRY METHOD 11/30/2024 11:47 AM [facility] LAB Chloride 97 96 - 110 mmol/L LAB CHEMISTRY METHOD 11/30/2024 11:47 AM [facility] LAB CO2 33(H) 21 - 32 mmol/L LAB CHEMISTRY METHOD 11/30/2024 11:47 AM [facility] LAB Anion Gap 4 3 - 11 LAB CHEMISTRY METHOD 11/30/2024 11:47 AM [facility] LAB Glucose 115(H) 70 - 100 mg/dL LAB CHEMISTRY METHOD 11/30/2024 11:47 AM [facility] LAB BUN 18 5 - 25 mg/dL LAB CHEMISTRY METHOD 11/30/2024 11:47 AM [facility] LAB Creatinine 0.97 0.50 - 1.10 mg/dL LAB CHEMISTRY METHOD 11/30/2024 11:47 AM [facility] LAB eGFR 65 >=60 mL/min/1. 73m2 LAB CHEMISTRY METHOD 11/30/2024 11:47 AM [facility] LAB Comment:Calculation based on the Chronic Kidney Disease Epidemiology Collaboration (CKD-EPI) equation refit without adjustment for race. BUN/Creatinine Ratio 18.6 LAB CHEMISTRY METHOD 11/30/2024 11:[address] [facility] LAB Calcium 8.5 8.5 - 10.5 mg/dL LAB CHEMISTRY METHOD 11/30/2024 11:[address] [facility] LAB Blood Venous blood specimen / Unknown Venipuncture / Unknown 11/30/2024 7:57 AM EDT 11/30/2024 8:47 AM EDT us Julien GALLEGOS LAB BLOOD ORDERABLES Final R esult [facility] [address] [place] [address], documented in this encounter Visit Diagnoses Diagnosis Encounter for other general examination documented in this encounter Care Teams Process Manager Relationship Specialty Start Date End Date Citlalli Reilly MD [address] [place] [address] PCP - General Internal Medicine 11/26/24 documented as of this encounter
--- OUTSIDE RECORDS SUMMARY | 2024-12-27 09:50 | XMS_ITS | Encounter Summary ---
Author Organization [facility] Address [address] [place] [address] Care Team Providers Care Rn House Supervisor Name Role Phone Citlalli Reilly MD Primary Care Provider [phone] Encounter Details Date Type Department Care Team (Late st Contact Info) Description 11/27/2024 Lab Requisition [facility] - Main Lab 299 [facility] [place] [address] Julien Luevano PA [address] [address] Encounter for other general examination [...] LAB CHEMISTRY METHOD 11/27/2024 11:58 AM EDT [facility] Potassium 3.3(L) 3.5 - 5.5 mmol/L LAB CHEMISTRY METHOD 11/27/2024 11:58 AM [facility] LAB Chloride 98 96 - 110 mmol/L LAB CHEMISTRY METHOD 11/27/2024 11:58 AM [facility] LAB CO2 32 21 - 32 mmol/L LAB CHEMISTRY METHOD 11/27/2024 11:58 AM [facility] LAB Anion Gap 7 3 - 11 LAB CHEMISTRY METHOD 11/27/2024 11:58 AM [facility] LAB Glucose 110(H) 70 - 100 mg/dL LAB CHEMISTRY METHOD 11/27/2024 11:58 AM [facility] LAB BUN 19 5 - 25 mg/dL LAB CHEMISTRY METHOD 11/27/2024 11:58 AM [facility] LAB Creatinine 0.99 0.50 - 1.10 mg/dL LAB CHEMISTRY METHOD 11/27/2024 11:58 AM [facility] LAB eGFR 63 >=60 mL/min/1. 73m2 LAB CHEMISTRY METHOD 11/27/2024 11:58 AM [facility] LAB Comment:Calculation based on the Chronic Kidney Disease Epidemiology Collaboration (CKD-EPI) equation refit without adjustment for race. BUN/Creatinine Ratio 19.2 LAB CHEMISTRY METHOD 11/27/2024 11:58 AM [facility] LAB Calcium 8.0(L) 8.5 - 10.5 mg/dL LAB CHEMISTRY METHOD 11/27/2024 11:58 AM [facility] LAB Blood Venous blood specimen / Unknown Venipuncture / Unknown 11/27/2024 5:36 AM EDT 11/27/2024 9:46 AM EDT us Julien GALLEGOS LAB BLOOD ORDERABLES Final R esult [facility] [address] [place] [address], * (ABNORMAL) Complete blood count (11/27/2024 5:36 AM EDT) [facility] WBC 7.0 4.8 - 10.8 K/mcL LAB HEMETOLOGY METHOD 11/27/2024 11:22 AM [facility] RBC 2.90(L) 3.80 - 4.80 M/mcL LAB HEMETOLOGY METHOD 11/27/2024 11:22 AM [facility] LAB Hemoglobin 8.6(L) 11.5 - 16.0 g/dL LAB HEMETOLOGY METHOD 11/27/2024 11:22 AM [facility] LAB Hematocrit 26.9(L) 35.0 - 47.0 % LAB HEMETOLOGY METHOD 11/27/2024 11:22 AM [facility] LAB MCV 93.1 79.0 - 98.0 FL LAB HEMETOLOGY METHOD 11/27/2024 11:22 AM [facility] LAB MCH 29.8 27.0 - 32.0 pcg LAB HEMETOLOGY METHOD 11/27/2024 11:22 AM [facility] LAB MCHC 32.0 32.0 - 37.0 g/dL LAB HEMETOLOGY METHOD 11/27/2024 11:22 AM [facility] LAB RDW 16.5(H) 11.0 - 15.0 % LAB HEMETOLOGY METHOD 11/27/2024 11:22 AM [facility] Platelets 130 130 - 400 K/mcL LAB HEMETOLOGY METHOD 11/27/2024 11:22 AM [facility] LAB MPV 9.9 7.0 - 11.0 FL LAB HEMETOLOGY METHOD 11/27/2024 11:22 AM [facility] NRBC 0.0 <1.0 % LAB HEMETOLOGY METHOD 11/27/2024 11:22 AM EDT [facility] NRBC Absolute 0.00 <0.10 K/mcL LAB HEMETOLOGY METHOD 11/27/2024 11:22 AM EDT [facility] LAB Blood Venous blood specimen / Unknown Venipuncture / Unknown 11/27/2024 5:36 AM EDT 11/27/2024 9:46 AM EDT us Julien GALLEGOS LAB BLOOD ORDERABLES Final R esult [facility] [address] [place] [address], documented in this encounter Visit Diagnoses Diagnosis Encounter for other general examination documented in this encounter Care Teams Rn House Supervisor Relationship Specialty Start Date End Date Citlalli Reilly MD [address] [place] [address] PCP - General Internal Medicine 11/26/24 documented as of this encounter
--- OUTSIDE RECORDS SUMMARY | 2024-12-27 09:50 | XMS_ITS | Clinical Summary ---
Author Organization [address] Address [address] [place] [address] Phone Care Team Providers Care Specimen Boss Name Role Phone Citlalli Reilly MD Primary Care Provider [phone] Encounters Date Type Department Care Team Description 12/03/2024 Lab Requisition [facility] Main Lab [address] [place] [address] Breann Noland PA Encounter for other general examination 12/02/2024 Lab Requisition [facility] Main Lab [address] [place] [address] Breann Noland PA Encounter for other general examination 11/30/2024 Lab Requisition [facility] Lab [address] [place] [address] Julien Luevano PA Encounter for other general examination 11/29/2024 Lab Requisition [facility] Lab [address] [place] [address] Julien Luevano PA Encounter for other general examination 11/27/2024 Lab Requisition [facility] Lab [address] [place] [address] Julien Luevano PA Encounter for other general examination 11/26/2024 Lab Requisition [facility] Main Lab [address] [place] [address] Breann Noland PA Encounter for other general examination 11/23/2024 Lab Requisition [facility] Main Lab [address] [place] [address] Julien Luevano PA Encounter for other general examination 11/18/2024 Lab Requisition [facility] Main Lab [address] [facility] [place] [address] Breann Noland PA Encounter for [...] of5 resultswithin the time period is included. [facility] Signature WBC 6.7 4.8 - 10.8 K/[facility] LAB HEMETOLOGY METHOD 12/03/2024 8:08 AM EDT [facility] LAB RBC 2.70(L) 3.80 - 4.80 M/[facility] LAB HEMETOLOGY METHOD 12/03/2024 8:[address] [facility] Hemoglobin 7.7(L) 11.5 - 16.0 g/dL LAB HEMETOLOGY METHOD 12/03/2024 8:[address] [facility] Hematocrit 24.6(L) 35.0 - 47.0 % LAB HEMETOLOGY METHOD 12/03/2024 8:[address] [facility] MCV 90.8 79.0 - 98.0 FL LAB HEMETOLOGY METHOD 12/03/2024 8:[address] [facility] MCH 28.4 27.0 - 32.0 pcg LAB HEMETOLOGY METHOD 12/03/2024 8:[address] [facility] MCHC 31.3(L) 32.0 - 37.0 g/dL LAB HEMETOLOGY METHOD 12/03/2024 8:[address] [facility] RDW 16.4(H) 11.0 - 15.0 % LAB HEMETOLOGY METHOD 12/03/2024 8:[address] [facility] Platelets 132 130 - 400 K/mcL LAB HEMETOLOGY METHOD 12/03/2024 8:[address] [facility] MPV 10.0 7.0 - 11.0 FL LAB HEMETOLOGY METHOD 12/03/2024 8:[address] [facility] NRBC 0.0 <1.0 % LAB HEMETOLOGY METHOD 12/03/2024 8:[address] [facility] NRBC Absolute 0.00 <0.10 K/mcL LAB HEMETOLOGY METHOD 12/03/2024 8:[address] [facility] Blood Venous blood specimen / Unknown Venipuncture / Unknown 12/03/2024 6:30 AM EDT 12/03/2024 7:46 AM EDT us Breann GALLEGOS LAB BLOOD ORDERABLES Final Resul t [facility] LAB [address] [place] [address], * (ABNORMAL) Comprehensive metabolic panel (12/02/2024 5:00 AM EDT) Only the most recent of4 resultswithin the time period is included. Sodium 136 133 - 145 mmol/L LAB CHEMISTRY METHOD 12/02/2024 10:[address] [facility] Potassium 3.6 3.5 - 5.5 mmol/L LAB CHEMISTRY METHOD 12/02/2024 10:[address] [facility] Chloride 100 96 - 110 mmol/L LAB CHEMISTRY METHOD 12/02/2024 10:[address] [facility] CO2 33(H) 21 - 32 mmol/L LAB CHEMISTRY METHOD 12/02/2024 10:[address] [facility] Anion Gap 3 3 - 11 LAB CHEMISTRY METHOD 12/02/2024 10:[address] [facility] Glucose 86 70 - 100 mg/dL LAB CHEMISTRY METHOD 12/02/2024 10:[address] [facility] BUN 18 5 - 25 mg/dL LAB CHEMISTRY METHOD 12/02/2024 10:[address] [facility] Creatinine 0.99 0.50 - 1.10 mg/dL LAB CHEMISTRY METHOD 12/02/2024 10:[address] [facility] eGFR 63 >=60 mL/min/1. 73m2 LAB CHEMISTRY METHOD 12/02/2024 10:[address] [facility] Comment:Calculation based on the Chronic Kidney Disease Epidemiology Collaboration (CKD-EPI) equation refit without adjustment for race. BUN/Creatinine Ratio 18.2 LAB CHEMISTRY METHOD 12/02/2024 10:[address] [facility] Calcium 8.5 8.5 - 10.5 mg/dL LAB CHEMISTRY METHOD 12/02/2024 10:41 AM T [facility] AST (SGOT) 44(H) 10 - 42 unit/L LAB CHEMISTRY METHOD 12/02/2024 10:[address] [facility] ALT (SGPT) 32 10 - 60 unit/L LAB CHEMISTRY METHOD 12/02/2024 10:[address] [facility] Alkaline Phosphatase 97 42 - 121 unit/L LAB CHEMISTRY METHOD 12/02/2024 10:41 AM EDT [facility] Total Protein 4.5(L) 6.0 - 8.0 g/dL LAB CHEMISTRY METHOD 12/02/2024 10:[address] [facility] Albumin 2.3(L) 3.2 - 5.0 g/dL LAB CHEMISTRY METHOD 12/02/2024 10:[address] [facility] Total Bilirubin 2.4(H) 0.0 - 1.4 mg/dL LAB CHEMISTRY METHOD 12/02/2024 10:[address] [facility] Blood Venous blood specimen / Unknown Venipuncture / Unknown 12/02/2024 5:00 AM EDT 12/02/2024 9:15 AM EDT us Breann GALLEGOS LAB BLOOD ORDERABLES Final Resul t [facility] [address] [place] [address], * (ABNORMAL) Basic metabolic panel (11/30/2024 7:57 AM EDT) Only the most recent of3 resultswithin the time period is included. Sodium 134 133 - 145 mmol/L LAB CHEMISTRY METHOD 11/30/2024 11:[address] [facility] Potassium 3.5 3.5 - 5.5 mmol/L LAB CHEMISTRY METHOD 11/30/2024 11:[address] [facility] Chloride 97 96 - 110 mmol/L LAB CHEMISTRY METHOD 11/30/2024 11:[address] [facility] CO2 33(H) 21 - 32 mmol/L LAB CHEMISTRY METHOD 11/30/2024 11:[address] [facility] Anion Gap 4 3 - 11 LAB CHEMISTRY METHOD 11/30/2024 11:[address] [facility] Glucose 115(H) 70 - 100 mg/dL LAB CHEMISTRY METHOD 11/30/2024 11:[address] [facility] BUN 18 5 - 25 mg/dL LAB CHEMISTRY METHOD 11/30/2024 11:[address] [facility] Creatinine 0.97 0.50 - 1.10 mg/dL LAB CHEMISTRY METHOD 11/30/2024 11:[address] [facility] eGFR 65 >=60 mL/min/1. 73m2 LAB CHEMISTRY METHOD 11/30/2024 11:[address] [facility] Comment:Calculation based on the Chronic Kidney Disease Epidemiology Collaboration (CKD-EPI) equation refit without adjustment for race. BUN/Creatinine Ratio 18.6 LAB CHEMISTRY METHOD 11/30/2024 11:[address] [facility] Calcium 8.5 8.5 - 10.5 mg/dL LAB CHEMISTRY METHOD 11/30/2024 11:[address] [facility] Blood Venous blood specimen / Unknown Venipuncture / Unknown 11/30/2024 7:57 AM EDT 11/30/2024 8:47 AM EDT Julien GALLEGOS LAB BLOOD ORDERABLES Final R esult [facility] [address] [place] [address], * (ABNORMAL) CBC auto differential (11/18/2024 6:00 AM EDT) [facility] WBC 9.7 4.8 - 10.8 K/mcL LAB HEMETOLOGY METHOD 11/18/2024 9:[address] [facility] RBC 3.10(L) 3.80 - 4.80 M/mcL LAB HEMETOLOGY METHOD 11/18/2024 9:[address] [facility] Hemoglobin 9.2(L) 11.5 - 16.0 g/dL LAB HEMETOLOGY METHOD 11/18/2024 9:[address] [facility] Hematocrit 29.7(L) 35.0 - 47.0 % LAB HEMETOLOGY METHOD 11/18/2024 9:[address] [facility] MCV 96.7 79.0 - 98.0 FL LAB HEMETOLOGY METHOD 11/18/2024 9:[address] [facility] MCH 30.0 27.0 - 32.0 pcg LAB HEMETOLOGY METHOD 11/18/2024 9:[address] [facility] MCHC 31.0(L) 32.0 - 37.0 g/dL LAB HEMETOLOGY METHOD 11/18/2024 9:[address] [facility] RDW 16.9(H) 11.0 - 15.0 % LAB HEMETOLOGY METHOD 11/18/2024 9:[address] [facility] Platelets 143 130 - 400 K/mcL LAB HEMETOLOGY METHOD 11/18/2024 9:[address] [facility] MPV 10.2 7.0 - 11.0 FL LAB HEMETOLOGY METHOD 11/18/2024 9:[address] [facility] NRBC 0.0 <1.0 % LAB HEMETOLOGY METHOD 11/18/2024 9:[address] [facility] NRBC Absolute 0.00 <0.10 K/mcL LAB HEMETOLOGY METHOD 11/18/2024 9:[address] [facility] Neutrophils Relative 69.6 % LAB HEMETOLOGY METHOD 11/18/2024 9:[address] [facility] Lymphocytes Relative 16.4 % LAB HEMETOLOGY METHOD 11/18/2024 9:[address] [facility] Monocytes Relative 10.0 % LAB HEMETOLOGY METHOD 11/18/2024 9:[address] [facility] Eosinophils Relative 2.6 % LAB HEMETOLOGY METHOD 11/18/2024 9:[address] [facility] Basophils Relative 0.6 % LAB HEMETOLOGY METHOD 11/18/2024 9:[address] [facility] Immature Granulocytes Relative 0.8 % LAB HEMETOLOGY METHOD 11/18/2024 9:[address] [facility] Neutrophils Absolute 6.77 1.50 - 7.00 K/mcL LAB HEMETOLOGY METHOD 11/18/2024 9:[address] [facility] Lymphocytes Absolute 1.60 1.00 - 5.00 K/mcL LAB HEMETOLOGY METHOD 11/18/2024 9:[address] [facility] Monocytes Absolute 0.97 0.20 - 1.00 K/mcL LAB HEMETOLOGY METHOD 11/18/2024 9:[address] [facility] Eosinophils Absolute 0.25 0.00 - 0.50 K/mcL LAB HEMETOLOGY METHOD 11/18/2024 9:[address] [facility] Basophils Absolute 0.06 0.00 - 0.20 K/mcL LAB HEMETOLOGY METHOD 11/18/2024 9:[address] [facility] Immature Granulocytes Absolute 0.08(H) 0.00 - 0.03 K/mcL LAB HEMETOLOGY METHOD 11/18/2024 9:[address] [facility] Blood Venous blood specimen / Unknown Venipuncture / Unknown 11/18/2024 6:00 AM EDT 11/18/2024 8:36 AM EDT Breann GALLEGOS LAB BLOOD ORDERABLES Final Resul t Performing Organization Address [facility]/ZIP Co de Phone Number [facility] [address] [place] [address], [place] [phone] * Magnesium (11/18/2024 6:00 AM EDT) Magnesium 1.9 1.9 - 2.6 mg/dL LAB CHEMISTRY METHOD 11/18/2024 9:35 AM EDT [facility] Blood Venous blood specimen / Unknown Venipuncture / Unknown 11/18/2024 6:00 AM EDT 11/18/2024 8:36 AM EDT Breann GALLEGOS LAB BLOOD ORDERABLES Final Resul t Performing Organization Address City/[facility]/ZIP Co de Phone Number [facility] [address] [place] [address], [place] [phone] from Last 3 Months Insurance * Guarantor: Prasanna Liu Account Type Relation to Patient Date of Phone Billing Address Personal/Family Self 1960 [address] [place] [address] MEDICARE [facility] Care Teams Specimen Boss Relationship Specialty Start Date End Date Citlalli Reilly MD [address] [place] [phone] PCP - General Internal Medicine 11/26/24
--- OUTSIDE RECORDS SUMMARY | 2024-12-27 09:50 | XMS_ITS | Clinical Summary ---
Author Organization [facility]ly [facility] Address [address] [place] [address] Care Team Providers Care Assembler [employer] Name Role Phone Citlalli Reilly MD Primary Care Provider [phone] Social History Tobacco Use Types Packs/Day Years Used Date Smoking Tobacco: Never Assessed Comments Unknown Sex and Gender Information Value Date Recorded Sex Assigned at Not on file Legal Sex Female 6:59 PM EST Gender Identity Not on file Sexual Orientation Not on file Plan of Treatment Health Maintenance Due Date Last Done Comments Advance Care Planning 1960 Hepatitis C Virus Screening 1960 HIV Screening 01/19/1972 DTaP/Tdap/Td Vaccines (1 - Tdap) 1978 Pneumococcal Vaccines 50+ (1 of 1 - PCV) 2009 Zoster (Shingles) Vaccine (1 of 2) 2009 COVID-19 Vaccine (3 - season) 2024 04/28/2021, 06/25/2020 RSV Vaccine 60 years and older and Patients (1 - 1-dose 75+ series) 2034 Influenza Vaccine Discontinued 04/08/2011, 03/05/2010 Hepatitis B Vaccines Aged Out No long er eligible based on patient's age to complete this topic Care Teams Assembler [employer] Relationship Specialty Start Date End Date Citlalli Reilly MD [address] [place] [phone] PCP - General Internal Medicine 10/06/22
== END 2024-12-26 08:32 | disposition home or self-care (01) ==
LOC: HO.HOSX 08:31
PROVIDERS: Visit Provider Physician Assistant
DX: Z13.89 Encounter for screening for other disorder (principal)

== ENCOUNTER 2025-03-12 12:58 | Outpatient (AMB) | payer BC, SELFPAY ==
--- NOTE | 2025-03-12 13:04 | A.OFFPC_ITS ---
Vital Signs 03/12/25 13:12 Height 5 ft Weight 221 lb 4 oz BMI 43.2 BP 96/52 L Blood Pressure Location Lt brachial Position Sitting Respiration 16 Pulse 89 Pulse Source Pulse Oximeter Temp 98.2 F Temp Source Oral Pulse Oximetry (%) 98 Oxygen Delivery Method Room Air Intake Visit Reasons: D/C from [facility] on 03/02 - See comments. Intake Note: Adrienne presents in the office today for a discharge follow up. Wine Steward Required: No Allergies azithromycin Allergy (Unknown, Verified 03/12/25 13:09) Rash furosemide Allergy (Unknown, Verified 03/12/25 13:09) Unknown levofloxacin (From Levaquin) Allergy (Unknown, Verified 03/12/25 13:09) Rash levothyroxine Allergy (Unknown, Verified 03/12/25 13:09) Rash sulfadiazine Allergy (Unknown, Verified 03/12/25 13:09) Rash zinc sulfate Allergy (Unknown, Uncoded 03/12/25 13:09) rash Tobacco use date assessed: 03/12/25 Dental Screening Dental Screen Date: 08/14/24 HPI HPI Comments History of Present Illness Details The patient is a 64 year old female with pmhx obesity, MEHDI, GERD, hyperglycemia, asthma, insomnia presenting for hospital follow up The patient was hospitalized from 01/19/2025-03/02/2025 at [facility]. Presented to [facility] 01/19 and then transferred to [facility] on 01/28/25 for worsening renal failure. Initially preseted with increased shortness of breath, poor appetite, weakness. CT scan abd/pelvis with cirrhoitic liver with large volume ascites and umbilical hernia. She underwent IR paracentesis-1.6L removed SBP ruled out c/w portal hypertension. started on albumin, midodrine, octreotide, IV lasix. Hepatitis panel negative, [id number] negative, low ceruloplasmin, autoimmune hep markers negative. CEA and CA-19-9 mild elevation. Unable to tolerate nadolol. Echo 01/23 normal LVEF, mild . Worsening renal function, nephrology consulted. Aldactone and torsemide held. From Jan 28 to Feb 27 seen by ICU, renal GI services. 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 Required MICU 02/22 for NE. Paracentesis-01/22, 01/31, 02/07/02/14, 02/21. She has o utpatient GI follow up scheduled for Apr 02. She is unsure if referred to [facility]/transplant-this placed today. She has weekly paracentesis scheduled for Fridays. The patient was hospitalized from November 02 to November 17 at [facility] and was in rehab until December 03. She underwent planned incisional hernia repair with mesh placement (incarcerated hernia) on November 02. Post procedure course was complicated by large bloody emesis and maroon colored stool. CT scan with cirrhotic liver Intubated-EGD november 07 performed showing portal hypertensive, non bleeding duodenal ulcers, duodenal bleeding ulcer that was hemoclipped Also with new onset atrial fibrillation-amiodarone then metoprolol. No AC in setting of anemia. EKG abn. NSTEMI II-recommend outpatient stress with imaging CV: Dyspnea 2022. Had cardiology work up, Dr Huitron at [facility]. No chest pain. Atrial fibrillation. AC contraindicated. Pulm: Asthma, MEHDI. On symbicort, ventolin. Dyspnea: Stable. Bad over summer, fall 2022. Had flu A, asthma exacerbation. Nuclear stress normal. Saw cardiology,referred to pulm MSK: Right shoulder pain. s/p arthroscopy. BH: Insomnia is stable on zolpidem. s/p hysterectomy Did cologuard ROS see HPI PHYSICAL EXAM: GENERAL: Alert and oriented x 3. NAD EYES: EOMI. Anicteric. HENT: Moist mucous membranes. No scleral icterus. No cervical lymphadenopathy. LUNGS: Clear to auscultation bilaterally. CARDIOVASCULAR: Regular rate and rhythm. systolic murmur ABDOMEN: Soft, obese, distended. No rigidity EXTREMITIES: No edema. Non-tender. SKIN: No rashes or lesions. Warm. NEUROLOGIC: No focal neurological deficits. CN II-XII grossly intact PSYCHIATRIC: Cooperative. Appropriate mood and affect [facility] Medical History (Updated 03/19/25 @ 06:55 by Citlalli Reilly MD) Hyperglycemia GERD (gastroesophageal reflux disease) Cataract, right eye Surgical History (Updated 09/14/24 @ 13:48 by Divya Walters MD) History of partial colectomy History of hysterectomy H/O total knee replacement Family History Mother Lymphoma Sister Stroke Cancer Social History (Updated 09/14/24 @ 13:38 by Foreign [employer]) Household Members: Spouse Housing: House Alcohol intake: current Patient Tobacco Use Status: Former Tobacco user Tobacco use type: Cigarette Cigarette Packs Per Day: 11 Years Smoked: 33 e-Cigarette/Vaping Use: Never Used Second Hand Smoke Exposure: No service: No Current occupational status: employed and retired Current occupational exposures/hazards: No Cognitive needs: No Hearing needs: No Vision needs: Yes (glasses) Questionnaire Thrive Questionnaire Date Thrive assessed: 05/26/24 I am a: Patient What is your living situation today?: I have a steady place to live Within the past 12 months, did the food you bought not last and you didn't have the money to get more?: Never true Within the past 12 months, did you worry whether your food would run out before you got money to buy more?: Never true Do you have trouble paying for medicines?: No Do you have trouble getting transportation to medical appointments?: No Do you have trouble paying your heating and electricity bill?: No Do you have trouble taking care of your child, family member or friend?: No Do you have trouble with day-to-day activities such as bathing, preparing meals, shopping, managing finances, etc.?: No Are you currently unemployed and looking for a job?: No Are you interested in more education?: No Please select the resources that you would like help with: None Currently or been in a relationship where the following occur: No concerns reported THRIVE Score: 0 RAMBO-7 AMB Questionnaire RAMBO-7 Date RAMBO - 7 assessed: 05/26/24 Source: Developed by Drs. Hira Long, Mary Wolff, Fabian Robert and colleagues, with an educational brittney from [employer]. Physical exam (Primary Care) Vital Signs: Last Vital Signs Temp 98.2 F 03/12/25 13:12 Pulse 89 03/12/25 13:12 Resp 16 03/12/25 13:12 BP 96/52 L 03/12/25 13:12 Pulse Ox 98 03/12/25 13:12 Oxygen Delivery Method Room Air 03/12/25 13:12 BMI result Body Mass Index 43.2 Tobacco/Smoking Status: Tobacco use Status Tobacco use date assessed 03/12/25 03/12/25 13:16 Patient Tobacco Use Status Former Tobacco user 03/12/25 13:06 Tobacco use type Cigarette 03/12/25 13:06 e-Cigarette/Vaping Use Never Used 03/12/25 13:06 Thrive Assessment: Date of Thrive Assessment Date Thrive assessed 05/26/24 03/12/25 13:06 Currently or been in a relationship where the following occur: No concerns reported Coding Level of Care Code Est Pt Level 5 (36974) Diagnoses Hospital discharge follow-up Z09 Cirrhosis of liver with ascites, unspecified hepatic cirrhosis type K74.60; K72.90 Ascites presence: with ascites Hepatic cirrhosis type: unspecified hepatic cirrhosis NSTEMI (non-ST elevated myocardial infarction) I21.4 Time Spent (min) 48 Assessment & Plan Assessment & Plan (1) Hospital discharge follow-up: Code(s): Z09 - Encounter for follow-up examination after completed treatment for conditions other than malignant neoplasm Category: Medical (2) Liver cirrhosis: Code(s): K74.60 - Unspecified cirrhosis of liver Category: Medical Qualifiers: Ascites presence: with ascites Hepatic cirrhosis type: unspecified hepatic cirrhosis Qualified Code(s): K74.60 - Unspecified cirrhosis of liver; K72.90 - Hepatic failure, unspecified without coma (3) NSTEMI (non-ST elevated myocardial infarction): Code(s): I21.4 - Non-ST elevation (NSTEMI) myocardial infarction Category: Medical Plan 65 year old female presenting for hospital follow up Liver cirrhosis with ascites. Recent prolonged hospitalization She has outpatient follow up with [facility] GI in [place]. She will need to also have consultationwith transplant ctr. referral placed She is set up for qweekly paracentesis She is having alot of pain secondary to ascites P Afib,CAD-needs follow up with cardiology Orders: Orders Prothrombin Time INR 03/12/25 K74.60 - Unspecified cirrhosis of liver Complete Blood Count Auto Diff 03/12/25 K74.60 - Unspecified cirrhosis of liver Ammonia 03/12/25 K74.60 - Unspecified cirrhosis of liver Basic Metabolic Panel 03/12/25 K74.60 - Unspecified cirrhosis of liver Liver Panel 03/12/25 K74.60 - Unspecified cirrhosis of liver Partial Thromboplastin Time 03/12/25 K74.60 - Unspecified cirrhosis of liver Referrals Gastroenterology Referral K74.60 - Unspecified cirrhosis of liver Medications: New Xifaxan (rifaximin) 550 mg PO BID 180 tabs 3RF NS K74.60 - Unspecified cirrhosis of liver hydromorphone Partial Fill upon patient request. 2 mg PO Q6H PRN 90 tabs 0RF pain 30 days ondansetron HCl 4 mg PO Q8H PRN 60 tabs 3RF nausea and vomiting
[2025-03-12 13:12] VITALS: BP 96/52; PULSE 89; RESP 16; TEMP 36.8; O2SAT 98; BMI 43.2
== END 2025-03-12 13:48 | disposition home or self-care (01) ==
LOC: HO.HMCFM 12:59
PROVIDERS: PCP Internal Medicine; Visit Provider Internal Medicine
DX: Z09 Encounter for follow-up examination after completed treatment for conditions other than malignant neoplasm (principal); K74.60 Unspecified cirrhosis of liver; K72.90 Hepatic failure, unspecified without coma